=== PATIENT | female | born 1985 | race Caucasian/White ===

== ENCOUNTER 2023-05-02 23:02 | Inpatient (IN) | payer OTHER, SELFPAY ==
[2023-05-02 21:03] VITALS: BP 197/134
[2023-05-02] MEDS: TYLENOL 650 MG PO (21:12)
[2023-05-02 21:36] VITALS: BP 196/112
--- NOTE | 2023-05-02 21:50 | ED.GENMED ---
History of Present Illness
General
Chief Complaint: Fever
Source: patient
Exam Limitations: none
Time Seen by Provider: 05/02/23 21:35
Nursing documentation reviewed up to this point in time: agreed with
Travel History
Have you had any contact with someone who has COVID-19?: No
Do you have any symptoms of coronavirus? Fever > 100 degrees, chills, cough, shortness of breath, sore throat, loss of taste or smell, muscle aches, or headache?: No
History of Present Illness
History of Present Illness:
37-year-old female presents emergency department complaining of coughing, since yesterday, wheezing, worse shortness of breath and fever at home. She took Tylenol at home.
Past History
Past History
ED Past Medical History: NIDDM
ED Past Surgical History: Tonsilectomy
Social History
Tobacco: Non-smoker
Alcohol: None
Drug: None
Review of Systems
Review of Systems
Allergies reviewed?: Yes
All Other Systems: Not applicable
Constitutional: Reports fever
EENT: Reports no symptoms
Respiratory: Reports trouble breathing
Cardiac: Reports no symptoms
ABD/GI: Reports no symptoms; Denies abdominal pain
: Reports no symptoms
Musculoskeletal: Reports no symptoms
Skin: Reports no symptoms
Neurological: Reports no symptoms
Endocrine: Reports no symptoms
Hematologic/Lymphatic: Reports no symptoms
Psychiatric: Reports no symptoms
Phy Exam
Physical Exam
Physical Exam:
Physical Exam
General: Fever 102.2
Neck: supple. no meningeal signs. normal posterior pharynx
Heart: s1/s2 regular rate and rhythm, no murmur. equal radial
pulses.
HEENT: Pupils equal round reactive to light, EOMI
Lungs: Wheezing and rhonchi bilaterally
Abdomen: normal bowel sounds. not tender. no CVAT
Neuro: alert and oriented. no focal neurological deficits cranial nerves II through XII intact
Skin: no rash
Psychiatric: well kept. interactive and cooperative
Extremities: no edema. no calf tenderness. negative homans. good distal pulses
Course
Orders/Labs/Results
Orders:
Orders
05/02/23 Dinner
1800 calorie (15 carb) Diabetic
05/02/23 21:09
ECG [Electrocardiogram (*1)] Urgent
Reason for Study: Shortness of Breath
EKG- Treatment ONCE
05/02/23 21:12
Acetaminophen [Tylenol] 650 mg PO NOW STA
05/02/23 21:47
Cardiac Monitoring- Treatment ONCE
IV Insert/Care/Rem.- Treatment PRN
Ipratropium/Albuterol Sulfate [Duoneb] 3 ml INH R NOW STA
05/02/23 21:48
CR Chest - 2 Views Urgent
Comment:
Reason For Exam: fever, cough, short of breath
05/02/23 21:49
0.9% Sodium Chloride 1000 ml [Nss] 1,000 ml IV BOLUS
05/02/23 22:14
Azithromycin 500 mg/250 ml [Zithromax Infusion] 500 mg in 250 ml IV NOW
CefTRIAXone [Rocephin] 1,000 mg IV NOW STA
05/02/23 22:22
B-Hydroxybutyrate Urgent
Comment: ADD ON
COVID-19 Antigen Urgent
Source: Nasal Swab
Complete Blood Count/With Diff Urgent
Comprehensive Metabolic Panel Urgent
Lactic Acid Q4H
Comment: CANCEL 2nd LACTIC ACID IF 1st LACTIC ACID IS LESS THAN 2
Blood Culture Q30M
YOEL Source: Blood/Venous
Specimen Description:
Blood Culture Q30M
YOEL Source: Blood/Venous
Specimen Description:
Influenza A+B Rapid Molecular Urgent
YOEL Source: Nasal Swab
Specimen Description:
03/02/24 22:44
Admit/Transfer Patient As Directed
Co-Sign Provider:
Level of Care: Inpatient admission
Assign to:: Medical/Surgical
Physician / Group: Hospitalist
Diagnosis: Community acquired pneumonia
Reason for Hospitalization: Multifocal pneumonia
Expected length of stay greater than two midnights?: Yes
ELOS- Estimated Length of Stay in days: 2
I certify the patient meets the requirements for IP care: Yes
05/02/23 22:45
Code Status As Directed
Resuscitation Status: Full Code
05/02/23 22:51
Oseltamivir Phosphate [Tamiflu] 75 mg PO NOW STA
05/02/23 22:56
Insulin Regular, Human Pen [NovoLIN R Flexpen] 5 units SC NOW STA
05/02/23 23:44
0.9% Sodium Chloride 1000 ml [Nss] 1,000 ml IV 100 mls/hr
Dextrose 50%-Water [Dextrose 50% Syringe] 12.5 grams IV [id number] PRN
Glucagon [GlucaGen] 1 mg IM PRN PRN
Ipratropium/Albuterol Sulfate [Duoneb] 3 ml INH R Q4HPRN PRN
05/02/23 23:44
Respiratory Culture/Gram Stain Routine
YOEL Source: Sputum
Specimen Description:
Activity As Directed
Activity Level: Out of Bed-Early Mobility
Bedside Glucose Monitoring As Directed
Frequency: AC&HS
Bedside Glucose Monitoring As Directed
Frequency: AC&HS
Comment: Change to q6h if pt on TPN, tube feeding or not eating
Intake/ Output As Directed
Frequency: Per unit guidelines
Vital Signs As Directed
Frequency: Per unit guidelines
Weight As Directed
Frequency: Once
Comment: on admission
O2 Therapy [RESP] Routine
Nasal Cannula Liter Flow: 2 LPM
Titrate/Wean O2 to maintain O2 sat greater than (%): 93
Special Instructions: Wean as tolerated
Pulse Ox/spot Check [RESP] Routine
Quantity: 1
DX Deep Vein Thrombosis Video Routine
05/03/23 02:00
Lactic Acid Q4H
Comment: CANCEL 2nd LACTIC ACID IF 1st LACTIC ACID IS LESS THAN 2
05/03/23 06:00
Basic Metabolic Panel IN AM
Complete Blood Count/No Diff IN AM
Glycohemoglobin (HgbA1c) IN AM
05/03/23 07:30
Insulin Aspart Corrective Low [Novolog Flexpen-Low Resistance] See Protocol SC AC
Insulin Aspart Corrective Low [Novolog Flexpen-Low Resistance] See Protocol SC AC
05/03/23 08:00
Guaifenesin [Mucinex] 600 mg PO Q12
Losartan [Cozaar] 50 mg PO DAILY
METFORMIN HCl [Glucophage] 1,000 mg PO BID@0800,1700
Oseltamivir Phosphate [Tamiflu] 75 mg PO BID
05/03/23 18:00
Enoxaparin Sodium [Lovenox] 40 mg SC QPM
05/03/23 22:00
CefTRIAXone [Rocephin] 1,000 mg IV Q24H
05/03/23 23:00
Azithromycin 500 mg/250 ml [Zithromax Infusion] 500 mg in 250 ml IV Q24H
Abnormal Lab Results
05/02/23
22:22
RBC 4.03 L 10^6/uL
(4.20-5.40)
Hgb 11.8 L g/dL
(12.0-16.0)
Hct 33.6 L %
(37.0-47.0)
MPV 11.3 H fL
(7.4-10.4)
Absolute Neuts (auto) 8.4 H 10^3/uL
(1.4-6.5)
Absolute Lymphs (auto) 0.8 L 10^3/uL
(1.2-3.4)
Neutrophils % 87.0 H %
(42.2-75.2)
Lymphocytes % 7.8 L %
(20.5-51.1)
Sodium 126 L mmol/L
(135-145)
Carbon Dioxide 14 L* mmol/L
(22-30)
BUN 31 H mg/dl
(7-17)
Creatinine 1.5 H mg/dL
(0.6-1.0)
Glucose 303 H mg/dl
(70-99)
Calcium 7.9 L mg/dl
(8.4-10.2)
Alkaline Phosphatase 127 H U/L
(38-126)
Total Protein 5.2 L g/dl
(6.3-8.2)
Albumin 2.7 L g/dl
(3.5-5.0)
B-Hydroxybutyrate 3.43 H mmol/L
(0.02-0.27)
05/02/23 22:22
05/02/23 22:22
Vital Signs
Initial and Last Documented VS:
Initial Vital Signs
Temp Pulse Resp BP Pulse Ox
102.2 F H 129 20 197/134 83
05/02/23 21:03 05/02/23 21:03 05/02/23 21:03 05/02/23 21:03 05/02/23 21:03
Last Documented Vital Signs
Temp Pulse Resp BP Pulse Ox
102.2 F H 117 21 134/83 94
05/02/23 21:03 05/02/23 23:15 05/02/23 22:30 05/02/23 23:00 05/02/23 23:15
MDM/Problems Addressed
Differential Diagnosis Includes:
Pneumonia, influenza, COVID
MDM/Problems Addressed:
37-year-old female with bilateral pneumonia. IV Rocephin and azithromycin ordered. Admit to hospitalist.
Chronic conditions affecting care: DM
Acute Exacerbation and/or Progression of Chronic Illness: DM
*Radiology
Radiology exam reviewed: preliminary read by ED provider (Chest x-ray shows bilateral pneumonia)
*Pulse Oximetry
Patient hypoxic: yes
*EKG
Interpreted by ED Provider?: Yes
EKG Intrepretation Date: 05/02/23
EKG Intrepretation Time: 21:13
Interpretation: abnormal
Comparison EKG: no comparison EKG present
Heart Rate: 124
Rate: tachycardiac
Rhythm: sinus tachycardia
[place]: normal axis
Interval: normal interval
QRS Pattern: normal QRS
Ischemia: non-specific ST changes
*Surface Hydrologist Interpretation
Rate: tachycardiac
Interpretation: abnormal
Heart Rate: 115
Rhythm: sinus tachycardia
*Critical Care Note
Total Time (30-74mins, 75-104mins- exclusive of procedures): 30
comment:
Critical care statement: A total of 30 minutes of critical care time was provided for this patient. This includes management of unstable vital signs, evaluation of the patient at bedside, reviewing the patient's pertinent medical records, discussion
with consultants, review of old EKGs and review of pertinent medical records. This time with separate from time utilized to perform the aforementioned documented procedures
Patient Management
Social determinants of health affecting care: Living situation and Strong social support
Discussion with other providers: Hospitalist
Escalation/DeEscalation of care consider admission/obs:
Admit indicated
ED Attending Note
-
Portions of this chart may have been created with voice recognition software.� Occasional wrong word or��sound alike� substitutions may have occurred due to the inherent limitations of voice recognition software.
Discharge Plan
Departure
Patient Disposition: Admit
Date of Disposition: 05/02/23
Time of Disposition: 22:36
Admit to: IMU
Presentation/result/management discussed w/ accepting MD/DO: Hospitalist
Patient with high blood pressure during this ER visit?: Yes
Condition: Fair
Discharge Problem:
Bilateral pneumonia, Hypoxia, Acute kidney failure, Influenza A
Interventions
Interventions:
*Risk Screen - Suicide Last Done: 05/02/23 21:03
*General Assessment Last Done: 05/02/23 21:05
*Neglect/Abuse Screening Last Done: 05/02/23 21:03
ED- Fall Risk Assessment Last Done: 05/02/23 22:47
*ED COVID-19 Vaccine History Last Done: 05/02/23 22:49
*Nursing Disposition Last Done: 05/02/23 23:35
ED- Neurological Assessment Last Done: 05/02/23 22:47
ED-Skin Assessment Last Done: 05/02/23 22:47
Discharge Date and Time
Discharge Date/Time: 05/02/23 23:36
[2023-05-02] MEDS: ROCEPHIN 1000 MG IV (22:27)
[2023-05-02] MEDS: ZITHROMAX INFUSION 250 IV (22:27)
[2023-05-02] MEDS: NSS 1000 IV (22:27)
[2023-05-02] MEDS: DUONEB 3 ML INH (22:28)
[2023-05-02 22:32] LABS: % Basophils 0.9 % (0-2); % Immature Granulocytes 0.4 % (0-0.5); % Lymphocytes 7.8 % (20.5-51.1); % Monocytes 3.9 % (1.7-9.3); Absolute Basophils 0.1 10^3/uL (0-0.2); Absolute Lymphocytes 0.8 10^3/uL (1.2-3.4); Absolute Monocytes 0.4 10^3/uL (0.1-0.6); Absolute Neutrophils 8.4 10^3/uL (1.4-6.5); Hematocrit 33.6 % (37.0-47.0); Hemoglobin 11.8 g/dL (12.0-16.0); Mean Corp Hgb Conc. 35.1 g/dL (33.0-37.0); Mean Corpuscular Hgb 29.3 pg (27.0-31.0); Mean Corpuscular Volume 83.4 fL (81.0-99.0); Mean Platelet Volume 11.3 fL (7.4-10.4); Nucleated Red Blood Cells % 0 %; Platelet Count 193 10^3/uL (130-400); Red Blood Cell Count 4.03 10^6/uL (4.20-5.40); Red Cell Dist. Width 14.1 % (11.5-14.5); White Blood Cell Count 9.7 10^3/uL (4.8-10.8)
[2023-05-02 22:36] VITALS: BP 166/93
--- NOTE | 2023-05-02 22:44 | HPS.HSE ---
Family Physician
-
Family Physician:
Chief Complaint
-
Cough and shortness of breath
History of Present Illness
This is a 37-year-old female with past medical history of diabetes and hypertension who presents to the emergency department secondary after developing cough and worsening shortness of breath.
She reports having a productive cough 1 day ago without any other significant symptoms. However overnight until this morning she developed fever chills shortness of breath and significant lethargy. She had dyspnea on exertion. Cough is productive
of sputum. She had otherwise been well prior to today's sweating episode. She denies having any sick contacts except for a small relative child with otitis. Patient denies any recent travels.
In terms of risk factors, she denies any recent antibiotic use. She denies any recent hospitalizations. She has not been on prednisone or other immunosuppressants. She denies history of prior lung disease such as asthma, COPD or interstitial lung
disease. No personal or family history of immunodeficiency. She denies any prior treatments hospitalization for pneumonia.
In the ED patient was febrile to 102.2 oxygen was 91% on room air, she was hypertensive and tachycardic with tachypnea to mid 20s. ECG shows sinus tachycardia at [address] or T wave changes. Chest x-ray shows bilateral consolidations. COVID
testing was negative. She was positive for influenza A. Chemistries notable for a sodium of 126, bicarb of 14, creatinine of 1.5 and a blood glucose of 303. There is no anion gap. Lactic acid was negative.
Medical History
Past Medical History
Past Medical History: Reports HTN and NIDDM
Past Surgical History: Reports None
Social History
Tobacco: Non-smoker
Alcohol: None
Drug: None
Personal:
Living: With Family
Employment: Employed
Family History
Family History: Cancer (mother w/ cancer of unknown origin, father, smoker with lung Ca)
Allergies / Home Medications
Allergies reflects when Allergies were last updated in [facility].
Home Medications with original date entered in [facility]
Allergy/Medication List:
Allergies
Allergy/AdvReac Type Severity Reaction Status Date / Time
No Known Allergies Allergy Verified 05/02/23 21:02
Home Medications
losartan 50 mg tablet 50 mg PO DAILY #30 tabs 03/12/23
metformin 1,000 mg tablet 1,000 mg PO BID #60 tabs 03/12/23
Review of Systems
-
History Source: Patient
Constitutional: Reports Fever and Fatigue
EENT: Reports No Symptoms
Respiratory: Reports Cough and Trouble Breathing
Cardiac: Reports No Symptoms
Abdomen/GI: Reports No Symptoms
: Reports No Symptoms
Musculoskeletal: Reports No Symptoms
Skin: Reports No Symptoms
Neurological: Reports No Symptoms
Endocrine: Reports No Symptoms
Hematologic/Lymphatic: Reports No Symptoms
Psych: Reports No Symptoms
Physical Exam
Vital Signs
Vital Signs
Temp Pulse Resp BP Pulse Ox
102.2 F H 129 20 197/134 91
05/02/23 21:03 05/02/23 21:03 05/02/23 21:03 05/02/23 21:03 05/02/23 21:05
Physical Exam
General: Well Developed, Well Nourished and Respiratory Distress
HEENT: NormoCephalic, Anicteric, Moist mucous membranes, PERRLA, [place] Conjunctivae and Oxygen
Respiratory: Clear
Cardiac: S1/S2 and Tachycardia
Breast: Deferred by me
GI: Soft, Non Tender, Non Distended and Normal Bowel Sounds
Rectal: Deferred by Provider
Genito-urinary: Deferred by me
Musculoskeletal: No Clubbing, No Cyanosis and No Edema
Skin: Warm
Neuro: AO x 3
Hematologic/Lymphatic: No Lymphadenopathy
Psych: Calm
Laboratory Results
-
Laboratory Results
Lactic Acid 1.0 mmol/L (0.7-2.0) 05/02/23 22:22
Data Reviewed
-
Diagnostic Radiology: Image Personally Visualized and interpreted and Report Reviewed by me
Medical Tests (Nuc Med, Echo, EKG etc): Image Personally Visualized and interpreted
Lab Data: Labs Reviewed by me
Old Records: Reviewed
Impression/Plan
-
IMPRESSION:
37 y.o with multifocal pneumonia and influenza A complicated by hypoxia.
PLAN:
1. Influenza A: Influenza Pneumonia with possible super-imposed bacterial pneumonia. Acute onset starting one day ago, < 48 hours since onset of symptoms. Significant respiratory distress with mild hypoxia and moderate tachypnea.
- admit to f for now
- tamiflu stat and continue 75mg po bid
- abx as below
2. Multifocal pneumonia: Likely secondary to Influenza however cannot rule out co-infection.
- ceftriaxone and azithromycin for now
- monitor with procalcitonin
- supportive care with supplemental O2, antitussives, Nebs
3. Hyperglycemia - Diabetes, elevated blood glucose. No significant anion gap suggestive of DKA
- IV fluids x 1 L
- insulin regular 5 units x 1
- q 4 hours blood glucose and aspart q4 hours sliding scale
- check a1c in am
- hold metformin
- continue NS at 150ml/hr
- npo till am
4. Hyponatremia - Suspect mild SIADH given acute onset of symptoms.
- Normal saline, monitor sodium with bid labs for now
- check urine osmolality now
5. Acidosis - Normal AG. Normal lactic acid. Mild bHB elevation. pH 7.31. Hyperchloremic acidosis w/o significant AG therefore no DKA requiring insulin gtt
- 5units regular insulin bolus
- iv fluids with 150 ml/hr
- q4 hr blood glucose and aspart sliding scale
DVT PPX with lovenox
Full Code
[2023-05-02 22:46] LABS: COVID-19 Antigen Negative (Negative)
[2023-05-02 22:50] LABS: ALT (SGPT) 15 U/L (0-35); AST (SGOT) 21 U/L (14-36); Albumin 2.7 g/dl (3.5-5.0); Alkaline Phosphatase 127 U/L (38-126); Blood Urea Nitrogen 31 mg/dl (7-17); Calcium 7.9 mg/dl (8.4-10.2); Carbon Dioxide 14 mmol/L (22-30); Chloride 103 mmol/L (98-107); Glucose 303 mg/dl (70-99); Potassium 3.8 mmol/L (3.5-5.1); Sodium 126 mmol/L (135-145); Total Bilirubin 0.6 mg/dl (0.2-1.3); Total Protein 5.2 g/dl (6.3-8.2); eGFR 45.18
[2023-05-02 23:00] VITALS: BP 134/83
[2023-05-02] MEDS: TAMIFLU 75 MG PO (23:02)
[2023-05-02 23:34] LABS: B-Hydroxybutyrate 3.43 mmol/L (0.02-0.27)
[2023-05-02 23:41] LABS: Venous Blood Gas B.E. -12.1 mmol/L (-4 to +4); Venous Blood Gas HCO3 12.6 mmol/L (22-27); Venous Blood Gas pCO2 25 mmHg (35-48); Venous Blood Gas pH 7.31 (7.32-7.43); Venous Blood Gas pO2 183 mmHg (30-50)
[2023-05-02 23:55] VITALS: BP 133/82; BMI 32.5
[2023-05-03] LABS: Glucose - Point of Care 325 mg/dl (70-99)
[2023-05-03] MEDS: NSS 1000 IV ×3 (00:51→16:40)
--- NOTE | 2023-05-03 01:00 | PTCARENOTE ---
Received patient from ED. Patient AAOx3, lungs coarse with rhonchi throughout (R>L) , DAVIS, orthopneic. Heart rate regular, no edema, positive pulses. Patient denies pain, does have minor 'cramps'. VSS. IVFs infusing. Patient verbalized an
understanding to ring for transfers. 4 rails up per patient request. Call crews in reach.
[2023-05-03] MEDS: NOVOLIN R 0.0500000000000000028 UNITS SC (01:01)
[2023-05-03 01:19] LABS: Blood Urea Nitrogen 33 mg/dl (7-17); Calcium 7.3 mg/dl (8.4-10.2); Carbon Dioxide 12 mmol/L (22-30); Chloride 108 mmol/L (98-107); Estimated Creatinine Clearance 38 ml/min; Glucose 317 mg/dl (70-99); Potassium 3.6 mmol/L (3.5-5.1); Sodium 128 mmol/L (135-145); eGFR 45.18
--- NOTE | 2023-05-03 01:42 | PTCARENOTE ---
Advised covering provider CO2 = 12.
[2023-05-03 01:50] VITALS: BP 133/82
[2023-05-03 04:14] LABS: Glucose - Point of Care 232 mg/dl (70-99)
--- NOTE | 2023-05-03 04:48 | PTCARENOTE ---
Advised covering provider 4am accu-check was 232.
[2023-05-03 05:29] LABS: Hematocrit 29.7 % (37.0-47.0); Hemoglobin 10.3 g/dL (12.0-16.0); Mean Corp Hgb Conc. 34.7 g/dL (33.0-37.0); Mean Corpuscular Volume 83.7 fL (81.0-99.0); Mean Platelet Volume 11.2 fL (7.4-10.4); Platelet Count 167 10^3/uL (130-400); Red Blood Cell Count 3.55 10^6/uL (4.20-5.40); Red Cell Dist. Width 14.1 % (11.5-14.5)
[2023-05-03 05:54] LABS: Blood Urea Nitrogen 33 mg/dl (7-17); Calcium 7.3 mg/dl (8.4-10.2); Carbon Dioxide 15 mmol/L (22-30); Chloride 109 mmol/L (98-107); Estimated Creatinine Clearance 38 ml/min; Glucose 244 mg/dl (70-99); Potassium 3.6 mmol/L (3.5-5.1); Sodium 129 mmol/L (135-145); eGFR 45.18
[2023-05-03 07:25] VITALS: BP 148/84
[2023-05-03 08:22] LABS: Glucose - Point of Care 246 mg/dl (70-99)
[2023-05-03] MEDS: NOVOLOG FLEXPEN-MODERATE RESISTANCE 3 UNITS SC (08:36)
--- NOTE | 2023-05-03 08:36 | W.PN.HOSP.TC ---
Today's Communication/Plan
-
See bold
Assessment / Plan
Assessment / Plan
37 y.o with multifocal pneumonia and influenza A complicated by hypoxia.�
PLAN:
Acute hypoxic respiratory insufficiency
-Due to influenza A infection and pneumonia
-Currently requiring 4-5 L of oxygen, wean as tolerated
-She does not wear oxygen at home
Sepsis, present upon admission
Influenza A infection
Multifocal pneumonia
-Procalcitonin elevated at 2.35
-Continue Rocephin/azithromycin day 2, Tamiflu day 2, bronchodilators
-Add incentive spirometry/Acapella valve
-Trend fever and white count
Acute kidney injury
-Creatinine 1.5, was 1.5 upon admission, baseline 1.1
-Hold metformin/losartan
-Secondary to sepsis, continue IV fluids, trend
Uncontrolled Diabetes with hyperglycemia
-No evidence of DKA, patient has non-anion gap metabolic acidosis
-Okay to start diabetic diet
-Hemoglobin A1c 10.4, consult diabetes nurse practitioner
-Start Lantus 10 units at bedtime, NovoLog 3 units AC 3 times daily, continue sliding scale insulin
-Hold metformin due to JOHN
Essential hypertension
-Hold losartan due to JOHN
-Start amlodipine 5 mg twice daily
Hyponatremia - Suspect mild SIADH given acute onset of symptoms.�
-Sodium improved to 129 today, was 126 upon admission
-Continue to trend
Acute anemia superimposed on chronic anemia
-Suspect acute anemia from sepsis vs dilutional from IVFs
-Hemoglobin 10.3 today, was 11.8 upon admission, baseline 11.4
-Monitor
Left upper extremity edema
-Suspect due to infiltrated IV
-Dopplers negative for DVT
Hyperchloremic non-anion gap metabolic acidosis
-Monitor
Hypocalcemia
-Corrected calcium is 7.9 from 7.3
-Check vitamin D, start calcium supplements
DVT ppx - SCDs
Full Code
Total time spent to see the patient on the floor, examine the patient, review data and lab results, discuss treatment plan with patient, nursing staff around 60 minutes.
Physical Exam
General: Appears to not feel well, no acute distress
HEENT: Normocephalic, Atraumatic, EOMI, MMM
Respiratory: Diminished breath sounds at the bases
Cardiac: Normal S1/S2, tachycardic rate rate and Rhythm
GI: Soft, Nontender, Nondistended, Normal Bowel Sounds
Extremities: No Clubbing, Cyanosis, or Edema
Neuro: Nonfocal/Grossly Intact
Anticipated Discharge: > 48 hours
Subjective/Interval History
-
Date of Service: May 03, 2023
Patient reports that her shortness of breath and wheezing are better. No nausea, no vomiting. No abdominal pain. Fever resolved.
Objective Data
-
Labs:
Laboratory Results
05/02/23 05/03/23 05/03/23
22:22 00:45 05:11
WBC 9.7 8.0
Hgb 11.8 L 10.3 L
Hct 33.6 L 29.7 L
Plt Count 193 167
Sodium 126 L 128 L 129 L
Potassium 3.8 3.6 3.6
Chloride 103 108 H 109 H
Carbon Dioxide 14 L* 12 L* 15 L
BUN 31 H 33 H 33 H
Creatinine 1.5 H 1.5 H 1.5 H
Glucose 303 H 317 H 244 H
Calcium 7.9 L 7.3 L 7.3 L
Total Bilirubin 0.6
AST 21
ALT 15
Alkaline Phosphatase 127 H
05/03/23 05/03/23 05/03/23
06:00 07:36 12:00
WBC
Hgb
Hct
Plt Count
Sodium Cancelled Pending Pending
Potassium Cancelled Pending Pending
Chloride Cancelled Pending Pending
Carbon Dioxide Cancelled Pending Pending
BUN Cancelled Pending Pending
Creatinine Cancelled Pending Pending
Glucose Cancelled Pending Pending
Calcium Cancelled Pending Pending
Total Bilirubin
AST
ALT
Alkaline Phosphatase
05/03/23 05/03/23
16:00 20:00
WBC
Hgb
Hct
Plt Count
Sodium Pending Pending
Potassium Pending Pending
Chloride Pending Pending
Carbon Dioxide Pending Pending
BUN Pending Pending
Creatinine Pending Pending
Glucose Pending Pending
Calcium Pending Pending
Total Bilirubin
AST
ALT
Alkaline Phosphatase
Vital Signs:
Vital Signs
Temp Pulse Resp BP Pulse Ox
99.6 F 115 22 133/82 93
05/02/23 23:55 05/02/23 23:55 05/02/23 23:55 05/02/23 23:55 05/02/23 23:55
I&O
05/02/23 05/03/23 05/04/23
06:59 06:59 06:59
Intake Total 900 / 900
Balance 900 / 900
[2023-05-03] MEDS: MUCINEX 600 MG PO ×2 (08:37→21:22)
[2023-05-03] MEDS: COZAAR 50 MG PO (08:37)
[2023-05-03] MEDS: TAMIFLU 30 MG PO ×2 (08:39→21:22)
[2023-05-03 08:55] LABS: Blood Urea Nitrogen 34 mg/dl (7-17); Calcium 7.3 mg/dl (8.4-10.2); Carbon Dioxide 12 mmol/L (22-30); Chloride 110 mmol/L (98-107); Estimated Creatinine Clearance 38 ml/min; Glucose 233 mg/dl (70-99); Potassium 3.8 mmol/L (3.5-5.1); Sodium 128 mmol/L (135-145); eGFR 45.18
--- NOTE | 2023-05-03 08:59 | PTCARENOTE ---
Critical Lab carbon dioxide 12. Dr. Toney notified via tiger text at 0819. Per Dr. Toney ABG's ordered.
[2023-05-03 09:18] LABS: B.E. -7.9 mmol/L; HCO3 16.4 mmol/L (21-28); O2 Saturation % 97.4 % (94-98); PCO2 29 mmHg (32-35); PO2 83 mmHg (83-108); pH 7.36 (7.35-7.45)
[2023-05-03 09:29] LABS: Glycohemoglobin (HgbA1c) 10.4 % (4.0-5.6)
[2023-05-03 10:09] LABS: Procalcitonin 2.35 ng/ml (0.0-0.25)
--- NOTE | 2023-05-03 10:42 | PTCARENOTE ---
critical lab Procalcitonin 2.35 H received from lab. Forwarded to Dr. Toney [id number].
[2023-05-03 11:55] LABS: Glucose - Point of Care 191 mg/dl (70-99)
[2023-05-03] MEDS: NOVOLOG FLEXPEN-MODERATE RESISTANCE 1 UNITS SC (11:56)
[2023-05-03] MEDS: NOVOLOG FLEXPEN 3 UNITS SC ×2 (11:59→17:15)
--- NOTE | 2023-05-03 15:00 | CM ---
real estate development manager reviewed patient's chart and spoke with patient by phone, patient is currently on isolation. Per patient she does not have insurance, call placed to admissions to contact [facility] for assessment tomorrow. Patient reports that she is working
but missed out on the cut off to enroll and next enrollment period is December per patient. Patient lives alone is independent with adl's and ambulation, no dme, patient is currently requiring 4-5 liters of oxygen, patient did not require oxygen
prior to admission. Patient uses [facility] on as her pharmacy.
Plan; To follow for discharge planning needs.
[2023-05-03 15:10] VITALS: BP 120/92
[2023-05-03] MEDS: OSCAL 500 + D 500 MG PO ×2 (16:39→22:02)
[2023-05-03 17:02] LABS: Glucose - Point of Care 260 mg/dl (70-99)
[2023-05-03] MEDS: NOVOLOG FLEXPEN-MODERATE RESISTANCE 5 UNITS SC (17:14)
[2023-05-03] MEDS: DUONEB 3 ML INH (19:28)
[2023-05-03 21:22] LABS: Glucose - Point of Care 185 mg/dl (70-99)
[2023-05-03] MEDS: NORVASC 5 MG PO (21:22)
[2023-05-03] MEDS: LANTUS 0.100000000000000006 UNITS SC (22:02)
[2023-05-03] MEDS: ROCEPHIN 1000 MG IV (22:03)
[2023-05-03] MEDS: STERILE WATER FOR INJECTION 10 ML IV (22:03)
[2023-05-03 23:21] VITALS: BP 150/91
[2023-05-03] MEDS: ZITHROMAX INFUSION 250 IV (23:29)
[2023-05-03 23:59] LABS: Glucose - Point of Care 180 mg/dl (70-99)
[2023-05-04 04:23] LABS: Glucose - Point of Care 152 mg/dl (70-99)
[2023-05-04 04:53] LABS: Hematocrit 31.4 % (37.0-47.0); Hemoglobin 10.9 g/dL (12.0-16.0); Mean Corp Hgb Conc. 34.7 g/dL (33.0-37.0); Mean Corpuscular Hgb 29.5 pg (27.0-31.0); Mean Corpuscular Volume 85.1 fL (81.0-99.0); Mean Platelet Volume 11.6 fL (7.4-10.4); Platelet Count 193 10^3/uL (130-400); Red Blood Cell Count 3.69 10^6/uL (4.20-5.40); Red Cell Dist. Width 14.4 % (11.5-14.5); White Blood Cell Count 9.9 10^3/uL (4.8-10.8)
[2023-05-04] MEDS: NSS 1000 IV ×2 (05:07→20:50)
[2023-05-04 05:21] LABS: Blood Urea Nitrogen 42 mg/dl (7-17); Calcium 8.1 mg/dl (8.4-10.2); Carbon Dioxide 15 mmol/L (22-30); Chloride 107 mmol/L (98-107); Estimated Creatinine Clearance 36 ml/min; Glucose 172 mg/dl (70-99); Potassium 3.9 mmol/L (3.5-5.1); Sodium 132 mmol/L (135-145); eGFR 41.81
[2023-05-04 05:37] LABS: Vitamin D, 25-OH*** < 12.8 ng/mL (30-80)
[2023-05-04 07:00] VITALS: BP 154/93
[2023-05-04 07:33] LABS: Glucose - Point of Care 160 mg/dl (70-99)
--- NOTE | 2023-05-04 07:43 | W.PN.HOSP.TC ---
Today's Communication/Plan
-
see A/P
Assessment / Plan
Assessment / Plan
37 y.o with multifocal pneumonia and influenza A complicated by hypoxia.�
A/P:
# Acute hypoxic respiratory insufficiency, due to influenza A infection and CAP
Currently requiring 4-5 L of oxygen, wean as tolerated
She does not wear oxygen at home
# Sepsis, present upon admission, due to Influenza A infection and Multifocal pneumonia
Procalcitonin elevated at 2.35
Check MRSA screen
Continue Rocephin/azithromycin , add empiric vancomycin
Cont Tamiflu
Cont bronchodilators, incentive spirometry/Acapella valve
fever has much resolved and white count WNL
# Acute kidney injury, Secondary to sepsis
Creatinine 1.6, was 1.5 upon admission, baseline 1.1
Hold DIRECTOR IMMUNOLOGY metformin/losartan
continue IV fluids, trend SCr
# Uncontrolled Diabetes with hyperglycemia
No evidence of DKA, patient has non-anion gap metabolic acidosis
Cont diabetic diet
Hemoglobin A1c 10.4, consult diabetes nurse practitioner
Started Lantus 10 units at bedtime, NovoLog 3 units AC 3 times daily, continue sliding scale insulin
Hold metformin due to JOHN
# Essential hypertension
Hold losartan due to JOHN
Started amlodipine 5 mg twice daily
# Hyponatremia - Suspect mild SIADH given acute onset of symptoms.�
Sodium improved to 132 today, was 126 upon admission
Continue to trend
# Acute anemia superimposed on chronic anemia
Suspect acute anemia from sepsis vs dilutional from IVFs
Hemoglobin 10.9 today, was 11.8 upon admission, baseline 11.4
Monitor
# Left upper extremity edema
Suspect due to infiltrated IV
Dopplers negative for DVT
# Hyperchloremic non-anion gap metabolic acidosis
Hyperchloremia has improved
# Hypocalcemia
# Low vitamin D level
started calcium carbonate supplement, cont
Hypocalcemia has improved
25 OH vitamin D level low, started ergocalciferol 80 000 units weekly for 8 weeks then 1000 units daily thereafter
DVT ppx - SCDs
Full Code
DW RN
Anticipated Discharge: > 48 hours
Subjective/Interval History
-
Date of Service: May 04, 2023
Objective Data
-
Labs:
Laboratory Results
05/04/23
04:41
WBC 9.9
Hgb 10.9 L
Hct 31.4 L
Plt Count 193
Sodium 132 L
Potassium 3.9
Chloride 107
Carbon Dioxide 15 L
BUN 42 H
Creatinine 1.6 H
Glucose 172 H
Calcium 8.1 L
Vital Signs:
Vital Signs
Temp Pulse Resp BP Pulse Ox
37.6 C 113 20 150/91 95
05/03/23 23:21 05/03/23 23:21 05/03/23 23:21 05/03/23 23:21 05/04/23 03:54
I&O
05/03/23 05/04/23 05/05/23
06:59 06:59 06:59
Intake Total 900 / 900 2099
Balance 900 / 900 2099
Review of Systems
-
Respiratory: Reports Trouble Breathing
Physical Exam
-
General: Well Developed, Respiratory Distress and Conversant (speak in full sentences)
HEENT: Normocephalic, Atraumatic, Nose Appears Normal, Ears Appear Normal and Oxygen (4L NC)
Respiratory: Crackles and Non Labored Respirations; Negative Wheezes or Accessory Resp Muscle Use
Cardiac: Regular Rhythm and S1/S2
GI: Soft and Nontender
Skin: Warm and Dry
Neuro: Awake, Alert, Oriented and AO x 3
Psych: Calm and Intact Judgement/Insight
Data Reviewed
-
Diagnostic Radiology: Image personally visualized and interpreted and Report Reviewed by me
Labs: Labs Reviewed by me
--- NOTE | 2023-05-04 07:51 | PN.DE.MGMTRT ---
Insulin Management
- -
05/04/2023: Diabetes Management Consult
37 year old female with multifocal pneumonia and influenza A complicated by hypoxia.�
PMH includes: HTN, T2DM, A1C 10.4%, was taking Metformin 1000mg BID, Cr 1.6,eGFR 41.81, metformin on hold.
Pt was started on Lantus 10 units @ HS and NovoLog 3 units AC.
Glucose has improved since admission, FBG 172 this AM, premeal range 191-260 yesterday, Currently requiring 1-5 units of additional corrective insulin with meals. Pt reports that she had been monitoring her blood sugars and taking insulin in the
past but it became cost prohibitive and she stopped taking insulin and checking blood sugars.
She reports that she has no insurance and can not afford insulin. She gets her routine care through the [facility] which she recently joined.
Says the only medication she can afford is Metformin. Explained to pt that her A1C is not at goal and will require insulin for optimal blood glucose control. Discussed [employer] brand Novolin that is $62.46 for 6 pens and [employer] ReliOn glucose
monitor and she was amenable to that.
Will start 70/30, 15 units BID, 1st dose this evening. MFM remains on hold given Cr 1.6, eGFR 41.81
Pt declined monitor and insulin instructions, stating that she knows how to check her blood sugar and is comfortable administering insulin at home.
Diabetes History
- -
Type of Diabetes: 2 requiring insulin
Pre-Admission Diabetes Regimen
05/03/23 05/03/23 05/03/23
07:36 12:00 16:00
Creatinine 1.5 H Cancelled Cancelled
05/03/23 05/04/23
20:00 04:41
Creatinine Cancelled 1.6 H
Lab Results
Hemoglobin A1c 10.4 % (4.0-5.6) H 05/03/23 05:11
Insulin Pump Settings
IP Diabetes Regimen
05/03/23 05/03/2324
07:36 08:21 11:53
Glucose 233 H
POC Glucose 246 H 191 H
05/03/23 05/03/23 05/03/23
12:00 16:00 17:01
Glucose Cancelled Cancelled
POC Glucose 260 H
05/03/23 05/03/23 05/03/23
20:00 21:21 23:56
Glucose Cancelled
POC Glucose 185 H 180 H
05/04/23 05/04/23 05/04/23
04:21 04:41 07:30
Glucose 172 H
POC Glucose 152 H 160 H
Meal type: Dinner
Meal type: Breakfast
Amount consumed: 85%
Amount consumed: 100%
Patient Education
[2023-05-04] MEDS: TYLENOL 650 MG PO ×2 (08:17→16:15)
[2023-05-04] MEDS: OSCAL 500 + D 500 MG PO ×3 (08:18→22:13)
[2023-05-04] MEDS: TAMIFLU 30 MG PO ×2 (08:18→20:54)
[2023-05-04] MEDS: MUCINEX 600 MG PO ×2 (08:18→20:51)
[2023-05-04] MEDS: NOVOLOG FLEXPEN-MODERATE RESISTANCE 1 UNITS SC ×2 (08:18→17:32)
[2023-05-04] MEDS: NORVASC 5 MG PO ×2 (08:18→20:51)
[2023-05-04] MEDS: NOVOLOG FLEXPEN SC (08:19)
--- NOTE | 2023-05-04 09:50 | PHA.VAN.IN ---
Assessment
- Assessment
Renal Function: Appears elevated from baseline
Maximum Temperature: 102.2
Minimum Temperature: 98.9
Concomitant Antimicrobials: Azithromycin, Ceftriaxone
Plan
- Plan
Initial / Loading Dose: 1500mg on 05/03
Maintenance Regimen: Dose by level
Monitoring: Random on 05/04 @0600
Pharmacokinetics Vancomycin I
- -
Patient Age: 37
Patient Sex: Female
Vancomycin Day #: 1
Indication: Pulmonary/Respiratory
Requesting Provider: Jai Doty
Pertinent Antimicrobial Allergies:
NKDA
Height / Weight:
Height 4 ft 8 in
Actual Weight 65.771 kg
Pertinent Past Medical History: DM
- Vital Signs / Lab Results
Temp Pulse Resp BP Pulse Ox
100.3 F 108 18 154/93 97
05/04/23 07:00 05/04/23 07:00 05/04/23 07:00 05/04/23 07:00 05/04/23 07:00
Lab Results - Hematology
05/02/23 05/03/23 05/04/23
22:22 05:11 04:41
WBC 9.7 8.0 9.9
Lab Results - Chemistry
05/02/23 05/03/23 05/03/23
22:22 00:45 05:11
BUN 31 H 33 H 33 H
Creatinine 1.5 H 1.5 H 1.5 H
Estimated Creat Clear 38 38
Albumin 2.7 L
05/03/23 05/03/23 05/03/23
06:00 07:36 12:00
BUN Cancelled 34 H Cancelled
Creatinine Cancelled 1.5 H Cancelled
Estimated Creat Clear Cancelled 38 Cancelled
Albumin
05/03/23 05/03/23 05/04/23
16:00 20:00 04:41
BUN Cancelled Cancelled 42 H
Creatinine Cancelled Cancelled 1.6 H
Estimated Creat Clear Cancelled Cancelled 36
Albumin
05/02/23 05/03/23
22:22 02:00
Lactic Acid 1.0 Cancelled
Microbiology Results
05/02/23 22:22 Blood Culture - Preliminary
Blood/Venous No Growth in 24 hours- Final report to follow
05/02/23 22:22 Blood Culture - Preliminary
Blood/Venous No Growth in 24 hours- Final report to follow
05/02/23 22:22 Influenza Types A & B (JORG[place]O) - Final
Nasal Swab Influenza A Positive, NAAT
[2023-05-04] MEDS: DRISDOL (VITAMIN D2) 50000 UNITS PO (10:09)
[2023-05-04] MEDS: VANCOCIN 300 MG IV (10:10)
[2023-05-04] MEDS: VANCOCIN 300 ML IV (10:10)
[2023-05-04 12:51] LABS: Glucose - Point of Care 252 mg/dl (70-99)
[2023-05-04] MEDS: NOVOLOG FLEXPEN 6 UNITS SC (13:46)
[2023-05-04] MEDS: NOVOLOG FLEXPEN-MODERATE RESISTANCE 5 UNITS SC (13:46)
[2023-05-04 15:00] VITALS: BP 157/95
--- NOTE | 2023-05-04 15:11 | CM ---
Discharge plan of care TBD. Was independent. Now with O2 @ 3L. Follow for need for O2. NO INSURANCE.
[2023-05-04 16:33] LABS: Glucose - Point of Care 174 mg/dl (70-99)
[2023-05-04] MEDS: NOVOLOG MIX 70/30 FLEXPEN 15 UNITS SC (18:10)
[2023-05-04] MEDS: ROCEPHIN 1000 MG IV (22:13)
[2023-05-04] MEDS: STERILE WATER FOR INJECTION 10 ML IV (22:14)
[2023-05-04 22:16] LABS: Glucose - Point of Care 117 mg/dl (70-99)
[2023-05-04 23:26] VITALS: BP 156/87
[2023-05-04] MEDS: ZITHROMAX INFUSION 250 IV (23:36)
[2023-05-05] MEDS: MELATONIN 5 MG PO (01:18)
--- NOTE | 2023-05-05 02:29 | PTCARENOTE ---
Pt stated that she felt like she was having a panic attack. This RN provided emotional support and deep breathing exercises. House COMPUTER FORENSICS INVESTIGATOR notified. Orders obtained for melatonin. (See MAR)
[2023-05-05 06:23] LABS: Hematocrit 29.8 % (37.0-47.0); Hemoglobin 10.4 g/dL (12.0-16.0); Mean Corp Hgb Conc. 34.9 g/dL (33.0-37.0); Mean Corpuscular Hgb 29.4 pg (27.0-31.0); Mean Corpuscular Volume 84.2 fL (81.0-99.0); Mean Platelet Volume 11.8 fL (7.4-10.4); Platelet Count 222 10^3/uL (130-400); Red Blood Cell Count 3.54 10^6/uL (4.20-5.40); Red Cell Dist. Width 14.5 % (11.5-14.5); White Blood Cell Count 9.5 10^3/uL (4.8-10.8)
[2023-05-05 06:29] LABS: Vancomycin Random 18.2 ug/ml
[2023-05-05 06:45] LABS: Blood Urea Nitrogen 39 mg/dl (7-17); Calcium 8.3 mg/dl (8.4-10.2); Carbon Dioxide 17 mmol/L (22-30); Chloride 109 mmol/L (98-107); Estimated Creatinine Clearance 36 ml/min; Glucose 157 mg/dl (70-99); Potassium 3.9 mmol/L (3.5-5.1); Sodium 134 mmol/L (135-145); eGFR 41.81
--- NOTE | 2023-05-05 07:15 | PN.DE.MGMTRT ---
Insulin Management
- -
05/04/2023: Diabetes Management Consult
37 year old female with multifocal pneumonia and influenza A complicated by hypoxia.�
PMH includes: HTN, T2DM, A1C 10.4%, was taking Metformin 1000mg BID, Cr 1.6,eGFR 41.81, metformin on hold.
Pt was started on Lantus 10 units @ HS and NovoLog 3 units AC.
Glucose has improved since admission, FBG 172 this AM, premeal range 191-260 yesterday, Currently requiring 1-5 units of additional corrective insulin with meals. Pt reports that she had been monitoring her blood sugars and taking insulin in the
past but it became cost prohibitive and she stopped taking insulin and checking blood sugars.
She reports that she has no insurance and can not afford insulin. She gets her routine care through the [facility] which she recently joined.
Says the only medication she can afford is Metformin. Explained to pt that her A1C is not at goal and will require insulin for optimal blood glucose control. Discussed [employer] brand Novolin that is $62.46 for 6 pens and [employer] ReliOn glucose
monitor and she was amenable to that.
Will start 70/30, 15 units BID, 1st dose this evening. MFM remains on hold given Cr 1.6, eGFR 41.81
Pt declined monitor and insulin instructions, stating that she knows how to check her blood sugar and is comfortable administering insulin at home.
05/05/2023 Diabetes Management Follow up
Due to cost patient regimen changed to 15 units 70/30 BID. Patient received first dose with dinner last evening. HS glucose 117, fasting glucose today 157. Will make no change to dinner 70/30 dose. Will follow glucose today to determine if 15
units 70/30 is adequate. Moderate corrective reduced to low corrective. cr remains 1.6, efgr 41.81.
Diabetes History
- -
Type of Diabetes: 2
Pre-Admission Diabetes Regimen
05/05/23
05:07
Creatinine 1.6 H
Lab Results
Hemoglobin A1c 10.4 % (4.0-5.6) H 05/03/23 05:11
Insulin Pump Settings
IP Diabetes Regimen
05/04/23 05/04/23 05/04/23
07:30 12:49 16:22
Glucose
POC Glucose 160 H 252 H 174 H
05/04/23 05/05/23
22:09 05:07
Glucose 157 H
POC Glucose 117 H
Meal type: Dinner
Amount consumed: 100%
Patient Education
[2023-05-05 08:25] VITALS: BP 163/105
--- NOTE | 2023-05-05 08:37 | PHA.VAN.FU ---
Vancomycin Assessment / Plan
- Assessment
Renal Function: Stable
WBC's are: WNL
In the past 24 hrs, patient has been: Afebrile
Concomitant Antimicrobials: ceftriaxone, azithromycin, oseltamivir
- Assessment - Therapeutic Drug Monitoring
Random Level: 18.2 - drawn ~19H after 1500mg loading dose
- Dosing Plan
Dosing by Level: Re-dose today (Vanc 500mg)
- Monitoring Plan
Random Level: 05/05 06
- Follow Up
Pharmacy will continue to follow.
Vancomycin Follow UP
- -
Patient Age: 37
Patient Sex: Female
Vancomycin Day #: 2
Indication: Pulmonary/Respiratory
Requesting Provider: Jai Doty
Pertinent Antimicrobial Allergies:
NKDA
Height / Weight:
Height 4 ft 8 in
Actual Weight 65.771 kg
Pertinent Past Medical History: DM, BMI ~32.5
- Vital Signs / Lab Results
Temp Pulse Resp BP Pulse Ox
99.4 F 104 20 156/87 95
05/04/23 23:26 05/04/23 23:26 05/04/23 23:26 05/04/23 23:26 05/04/23 23:54
Lab Results - Hematology
05/02/23 05/03/23 05/04/23
22:22 05:11 04:41
WBC 9.7 8.0 9.9
05/05/23
05:06
WBC 9.5
Lab Results - Chemistry
05/02/23 05/03/23 05/03/23
22:22 00:45 05:11
BUN 31 H 33 H 33 H
Creatinine 1.5 H 1.5 H 1.5 H
Estimated Creat Clear 38 38
Albumin 2.7 L
05/03/23 05/03/23 05/03/23
06:00 07:36 12:00
BUN Cancelled 34 H Cancelled
Creatinine Cancelled 1.5 H Cancelled
Estimated Creat Clear Cancelled 38 Cancelled
Albumin
05/03/23 05/03/23 05/04/23
16:00 20:00 04:41
BUN Cancelled Cancelled 42 H
Creatinine Cancelled Cancelled 1.6 H
Estimated Creat Clear Cancelled Cancelled 36
Albumin
05/05/23
05:07
BUN 39 H
Creatinine 1.6 H
Estimated Creat Clear 36
Albumin
05/02/23 05/03/23
22:22 02:00
Lactic Acid 1.0 Cancelled
Microbiology Results
05/02/23 22:22 Blood Culture - Preliminary
Blood/Venous No Growth in 48 hours- Final report to follow
05/02/23 22:22 Blood Culture - Preliminary
Blood/Venous No Growth in 48 hours- Final report to follow
Therapeutic Drug Monitoring
Random Vancomycin 18.2 ug/ml 05/05/23 05:07
[2023-05-05] MEDS: NSS 1000 IV (08:45)
[2023-05-05] MEDS: MUCINEX 600 MG PO ×2 (08:45→20:19)
[2023-05-05] MEDS: COREG 3.125 MG PO ×2 (08:45→20:18)
[2023-05-05] MEDS: NORVASC 5 MG PO ×2 (08:46→20:19)
[2023-05-05] MEDS: NOVOLOG FLEXPEN-LOW RESISTANCE SC (08:46)
[2023-05-05] MEDS: TAMIFLU 30 MG PO ×2 (08:46→20:19)
[2023-05-05] MEDS: OSCAL 500 + D 500 MG PO ×3 (08:46→22:19)
[2023-05-05 08:47] LABS: Glucose - Point of Care 147 mg/dl (70-99)
[2023-05-05] MEDS: NOVOLOG MIX 70/30 FLEXPEN SC ×2 (08:47→13:23)
--- NOTE | 2023-05-05 09:08 | W.PN.HOSP.TC ---
Today's Communication/Plan
-
see A/P
Assessment / Plan
Assessment / Plan
37 y.o with multifocal pneumonia and influenza A complicated by hypoxia.�
A/P:
# Acute hypoxic respiratory insufficiency, due to influenza A infection and CAP
Weaned 4-5 L of oxygen to 3L NC, cont to wean as tolerated. She does not wear oxygen at home
# Sepsis, present upon admission, due to Influenza A infection and Multifocal pneumonia
Procalcitonin elevated at 2.35
Check MRSA screen
Continue Rocephin/azithromycin , added empiric vancomycin
Cont Tamiflu x5 days
Cont bronchodilators, incentive spirometry/Acapella valve
fever has resolved and white count WNL
PT OT eval for weakness
# Acute kidney injury, Secondary to sepsis
Creatinine remain at 1.6, was 1.5 upon admission, baseline 1.1
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
continue IV fluid, trend SCr
# Uncontrolled Diabetes with hyperglycemia
No evidence of DKA, patient has non-anion gap metabolic acidosis
Cont diabetic diet
Hemoglobin A1c 10.4, diabetes nurse practitioner on board
Pt was switched to Insulin 70/30 at 15 units BID by DM STATION CAPTAIN
continue sliding scale insulin
Hold metformin due to JOHN
# Essential hypertension
Hold losartan due to JOHN
Started amlodipine 5 mg twice daily, Add coreg 3.125 BID
Secondary HTN work up: check TSH reflex Ft4, check echo, check renal artery US, check renin/aldosterone, metanephrine and catecholamines, UDS
# Hyponatremia - Suspect mild SIADH given acute onset of symptoms.�
Sodium improved to 134 today, was 126 upon admission
Continue to trend
# Acute anemia superimposed on chronic anemia
Suspect acute anemia from sepsis vs dilutional from IVFs
Hemoglobin 10.4 today, was 11.8 upon admission, baseline 11.4
Monitor
# Left upper extremity edema
Suspect due to infiltrated IV
Dopplers negative for DVT
# Hyperchloremic non-anion gap metabolic acidosis
Hyperchloremia has improved
# Hypocalcemia
# Low vitamin D level
started calcium carbonate supplement, cont
Hypocalcemia has improved
25 OH vitamin D level low, started ergocalciferol 80 000 units weekly for 8 weeks then 1000 units daily thereafter
DVT ppx - HSQ
Full Code
total time spent 51 min
Anticipated Discharge: > 48 hours
Subjective/Interval History
-
Date of Service: May 05, 2023
Objective Data
-
Labs:
Laboratory Results
05/05/23 05/05/23
05:06 05:07
WBC 9.5
Hgb 10.4 L
Hct 29.8 L
Plt Count 222
Sodium 134 L
Potassium 3.9
Chloride 109 H
Carbon Dioxide 17 L
BUN 39 H
Creatinine 1.6 H
Glucose 157 H
Calcium 8.3 L
Vital Signs:
Vital Signs
Temp Pulse Resp BP Pulse Ox
37.4 C 111 20 179/111 95
05/04/23 23:26 05/05/23 08:46 05/04/23 23:26 05/05/23 08:46 05/04/23 23:54
I&O
05/04/23 05/05/23 05/06/23
06:59 06:59 06:59
Intake Total 2099 2935 / 2935
Balance 2099 2935 / 2935
Review of Systems
-
Constitutional: Reports Weakness
Respiratory: Reports Trouble Breathing
Physical Exam
-
General: Well Developed, Respiratory Distress and Conversant (speak in full sentences)
HEENT: Normocephalic, Atraumatic, Nose Appears Normal, Ears Appear Normal and Oxygen (3L NC)
Respiratory: Crackles and Non Labored Respirations; Negative Wheezes or Accessory Resp Muscle Use
Cardiac: Regular Rhythm and S1/S2
GI: Soft and Nontender
Skin: Warm and Dry
Neuro: Awake and Alert
Psych: Calm and Intact Judgement/Insight
Data Reviewed
-
Diagnostic Radiology: Image personally visualized and interpreted and Report Reviewed by me
Labs: Labs Reviewed by me
[2023-05-05 10:02] LABS: TSH Reflex To Free T4 4.11 uIU/ml (0.47-4.68)
[2023-05-05 13:07] LABS: Glucose - Point of Care 151 mg/dl (70-99)
[2023-05-05] MEDS: VANCOCIN HCL 500 MG 100 IV (13:08)
[2023-05-05 13:10] VITALS: BP 161/99
[2023-05-05] MEDS: APRESOLINE 5 MG IV (13:11)
[2023-05-05] MEDS: NOVOLOG FLEXPEN-LOW RESISTANCE 1 UNITS SC ×2 (13:15→18:35)
[2023-05-05 13:47] LABS: Amphetamines Negative (Negative); Barbiturates Negative (Negative); Benzodiazepines Negative (Negative); Buprenorphine Negative (Negative); Cocaine Negative (Negative); Marijuana Negative (Negative); Methadone Negative (Negative); Methamphetamines Negative (Negative); Opiates Negative (Negative); Phencyclidine Negative (Negative); Tricyclic Antidepressants Negative (Negative)
[2023-05-05] MEDS: NOVOLOG FLEXPEN 3 UNITS SC (14:20)
[2023-05-05 14:22] VITALS: BP 162/94; PULSE 107; PULSE 99; O2SAT 92; O2SAT 93
[2023-05-05 16:00] VITALS: BP 155/88
--- NOTE | 2023-05-05 16:04 | CM ---
Patient with multifocal pneumonia,influenza and hypoxia.�No O2 at baseline. Now on 3L. NO INSURANCE. Continuing to wean O2 to baseline. Will continue to follow medical progression and O2 wean.
[2023-05-05 18:08] LABS: Glucose - Point of Care 194 mg/dl (70-99)
--- NOTE | 2023-05-05 18:10 | PTCARENOTE ---
Patient's POX 88-89% on 3L, patient increased to 4L, POX improved to 92%. Patient states she only feels comfortable sitting on side of bed and leaning onto tray table, feels tightness in back and increased congestion laying in bed or sitting in
chair. Patient denies chest pain. MD made aware, order for EKG and troponin placed.
[2023-05-05] MEDS: NOVOLOG MIX 70/30 FLEXPEN 15 UNITS SC (18:35)
--- NOTE | 2023-05-05 19:05 | PTCARENOTE ---
Patient increased to 5L to maintain POX of 92%, MD made aware, EKG obtained by tech and results sent to MD. MD called to floor, telephone order taken by this RN for VQ scan in AM, DC IVFs, stat D-dimer lab draw. Patient placed on telemetry per MD.
[2023-05-05 19:38] LABS: Troponin I 0.025 ng/ml
[2023-05-05 19:42] VITALS: BP 183/114
[2023-05-05] MEDS: NSS IV (19:48)
[2023-05-05 20:08] LABS: D-Dimer 2.25 ug/mlFEU (0.00-0.50)
[2023-05-05] MEDS: HEPARIN 5000 UNITS SC (20:18)
--- NOTE | 2023-05-05 20:44 | W.PN.UPDATE ---
Update Note
Progress Note Update
Patient is hypoxic, SPO2 90% on 6 L of O2. B/L lung sound with crackle and coarse lung sound. Patient was placed on midflow 12L of O2.
D Dimer result is-----> 2.25. CT/PE ordered and result is Neg for PE.
will continue duo nebs as needed.
[2023-05-05 22:06] LABS: Glucose - Point of Care 221 mg/dl (70-99)
[2023-05-05] MEDS: DUONEB 3 ML INH (22:06)
[2023-05-05] MEDS: STERILE WATER FOR INJECTION 10 ML IV (22:19)
[2023-05-05] MEDS: ROCEPHIN 1000 MG IV (22:20)
[2023-05-05] MEDS: ZITHROMAX INFUSION 250 IV (23:28)
[2023-05-05 23:34] VITALS: BP 127/85
[2023-05-06] VITALS (7 sets, daily range): BP systolic 132–158; BP diastolic 78–99; PULSE 92; O2SAT 94
[2023-05-06 01:52] LABS: Glucose - Point of Care 168 mg/dl (70-99)
--- NOTE | 2023-05-06 03:15 | PTCARENOTE ---
Patient with increased SOB and oxygen demand at beginning of this shift; dayshift RN received orders at approximately [address] Doty to d/c IVFs and obtain d-dimer; RT called to the floor to assess patient; patient requiring 10L oxygen via
midflow; Ricardo HERNANDEZ notified; D-dimer, 2.25; orders obtained for chest CT to r/o PE; Neb treatment given @ 2206; emotional support provided to patient.
--- NOTE | 2023-05-06 03:48 | PTCARENOTE ---
Patient requested to have BS checked @ 0145; BS 168.
[2023-05-06 06:14] LABS: Hematocrit 28.4 % (37.0-47.0); Hemoglobin 9.7 g/dL (12.0-16.0); Mean Corp Hgb Conc. 34.2 g/dL (33.0-37.0); Mean Corpuscular Hgb 29.3 pg (27.0-31.0); Mean Corpuscular Volume 85.8 fL (81.0-99.0); Mean Platelet Volume 11.2 fL (7.4-10.4); Platelet Count 235 10^3/uL (130-400); Red Blood Cell Count 3.31 10^6/uL (4.20-5.40); Red Cell Dist. Width 14.6 % (11.5-14.5); White Blood Cell Count 8.8 10^3/uL (4.8-10.8)
[2023-05-06 06:36] LABS: Blood Urea Nitrogen 38 mg/dl (7-17); Carbon Dioxide 15 mmol/L (22-30); Chloride 111 mmol/L (98-107); Estimated Creatinine Clearance 32 ml/min; Glucose 151 mg/dl (70-99); Magnesium 2.1 mg/dl (1.6-2.3); Sodium 132 mmol/L (135-145)
[2023-05-06 06:50] LABS: Vancomycin Random 16.8 ug/ml
--- NOTE | 2023-05-06 07:19 | PN.DE.MGMTRT ---
Insulin Management
- -
05/04/2023: Diabetes Management Consult
37 year old female with multifocal pneumonia and influenza A complicated by hypoxia.�
PMH includes: HTN, T2DM, A1C 10.4%, was taking Metformin 1000mg BID, Cr 1.6,eGFR 41.81, metformin on hold.
Pt was started on Lantus 10 units @ HS and NovoLog 3 units AC.
Glucose has improved since admission, FBG 172 this AM, premeal range 191-260 yesterday, Currently requiring 1-5 units of additional corrective insulin with meals. Pt reports that she had been monitoring her blood sugars and taking insulin in the
past but it became cost prohibitive and she stopped taking insulin and checking blood sugars.
She reports that she has no insurance and can not afford insulin. She gets her routine care through the [facility] which she recently joined.
Says the only medication she can afford is Metformin. Explained to pt that her A1C is not at goal and will require insulin for optimal blood glucose control. Discussed [employer] brand Novolin that is $62.46 for 6 pens and [employer] ReliOn glucose
monitor and she was amenable to that.
Will start 70/30, 15 units BID, 1st dose this evening. MFM remains on hold given Cr 1.6, eGFR 41.81
Pt declined monitor and insulin instructions, stating that she knows how to check her blood sugar and is comfortable administering insulin at home.
05/05/2023 Diabetes Management Follow up
Due to cost patient regimen changed to 15 units 70/30 BID. Patient received first dose with dinner last evening. HS glucose 117, fasting glucose today 157. Will make no change to dinner 70/30 dose. Will follow glucose today to determine if 15
units 70/30 is adequate. Moderate corrective reduced to low corrective. cr remains 1.6, efgr 41.81.
05/06/2023 Diabetes Management Follow up
Due to multiple tests yesterday patient was NPO and did not receive AM 70/30 dose. Glucose did trend up to 194 pre dinner. Will continue 15 units 70/30 BID with breakfast and dinner. Will follow glucose results for possible needed increase in
dose. I spoke with patient, she had an appointment scheduled with [facility]. She states she has taken insulin in the past and feels comfortable with self administration. CR 1.8, eGFR 36.30 today.
Diabetes History
- -
Type of Diabetes: 2 requiring insulin
Pre-Admission Diabetes Regimen
05/06/23
05:44
Creatinine 1.8 H
Lab Results
Hemoglobin A1c 10.4 % (4.0-5.6) H 05/03/23 05:11
Insulin Pump Settings
IP Diabetes Regimen
05/05/23 05/05/23 05/05/23
08:45 13:05 18:06
Glucose
POC Glucose 147 H 151 H 194 H
05/05/23 05/06/23 05/06/23
22:05 01:50 05:44
Glucose 151 H
POC Glucose 221 H 168 H
Meal type: Lunch
Amount consumed: 100%
Patient Education
[2023-05-06 07:33] LABS: Glucose - Point of Care 143 mg/dl (70-99)
--- NOTE | 2023-05-06 07:40 | CON.CAR ---
Addendum entered and electronically signed by José Shields MD 05/06/23 15:24:
I saw and examined the patient.
The Tie Cutter's note was reviewed and I agree with the note.
Comment: Briefly, 37-year-old woman with past medical history of diabetes and hypertension who presented with dyspnea and cough found to have sepsis secondary to influenza
Received aggressive IV fluid resuscitation. Unfortunately her respiratory status worsened ultimately requiring 10 L mid flow oxygen. Patient reports significantly worsening peripheral edema during her hospitalization.
Underwent transthoracic echocardiogram which showed mildly reduced LV function EF 40-45% and severely elevated right atrial pressure
proBNP was elevated to 8,700
Agrree with stopping IVF and start IV Lasix BID to treat decompensated heart failure
Home losartan on hold, would add back when her renal function stabilizes
Agree with low-dose Coreg
Etiology of her cardiomyopathy is unclear to me, would consider outpatient ischemic evaluation and eventual repeat echo
We will continue to follow
Original Note:
Consultation
Consultation Request
Date/Time Consultation Requested: 05/05/23 at 1826
Date/Time Consultation Performed: 05/06/23 at 1130
Requesting Provider: Dr. Doty
Performing Provider: Dr. Shields
Reason for Consultation: Hypoxia, abnormal echo
Medical History
-
History of Present Illness:
Patient came to [facility] 05/02/23 with cough and SOB and was admitted with influenza, cardiology is now consulted for an abnormal echo. Patient lives independently and has a job. Patient gets help from her sister with paying for retinal injections and her
sister also recently helped her with completing paperwork for the [facility] as patient makes too much money for Medicaid and food stamps. Patient's sister was on the phone throughout this HPI. Patient came to [facility] with cough and SOB 05/02/23
and was positive for flu. She was admitted with hypoxia and sepsis. She was also treated for multifocal PNA. Patient received a total of 9 L IVFs. Patient says that she feels better today and attributes this to improved fevers, but overnight she was
noted to have worsening hypoxia and D-dimer was elevated so she was sent for CT for PE and it was negative, but it did show B/L pleural effusions and B/L opacities. Patient went from 3 L daytime yesterday to 10 L last night. She has improved a bit
and is down to 8 L midflow now, but she is dyspneic with conversation. Patient says that in hindsight she started with pittine LE edema and orthopnea 2-3 weeks prior to admission. No h/o cardiac testing and overall has had limited medical care in
the last few years due to finances.
PMH:
DM
Diabetic retinopathy
Past Medical History
Past Medical History: Other (in HPI)
Past Surgical History: Tonsilectomy
Social History
Tobacco: Non-Smoker
Alcohol: None
Drug: None
Personal: Single
Living: Alone
Employment: Employed
Family History
Family History: Other (paternal grandmother with possible CAD)
Allergies / Home Medications
Allergy/AdvReac Type Severity Reaction Status Date / Time
No Known Allergies Allergy Verified 05/02/23 21:02
Medication Instructions Recorded Confirmed Type
losartan 50 mg tablet 50 mg PO DAILY #30 tabs 03/12/23 Rx
metformin 1,000 mg tablet 1,000 mg PO BID #60 tabs 03/12/23 Rx
Review of Systems
-
History Source: Patient and Family (sister by phone)
All other systems: Negative unless noted
Physical Exam
Vital Signs
Temp Pulse Resp BP Pulse Ox
98.2 F 92 20 132/78 99
05/06/23 04:00 05/06/23 04:00 05/06/23 04:00 05/06/23 04:00 05/06/23 04:00
GEN: NAD. AAOx3
HEENT: EOMI, MMM
LUNGS: Dyspneic with conversation. Wearing oxygen at 8 L midflow. Coarse rales and rhonchi throughout.
CV: Reg, S1/S2, o murmur
ABD: soft, BS+, NT, ND. Pitting edema lower abdomen
EXT: +3 hard edema B/L LE to the upper thighs
NEURO: Gross non-focal
SKIN: Warm, dry and pink. No rash
Lab Results
05/06/23 05:44
Troponin I 0.020 ng/ml 05/06/23 05:43
Impression / Plan
-
PCP: Scheduled to be seen in the [facility]
Cardiology: None prior to admission
Impression:
Acute hypoxic respiratory insufficiency
Sepsis
Influenza
Multifocal CAP
Acute HFrEF
Newly diagnosed CM EF 40%
JOHN, possible CKD
DM
Diabetic retinopathy
Echo 05/05/23: EF 40-45%, mild MR, mild TR with PAP 30-35 mmHg, small pericardial effusion
Plan:
-Patient came to [facility] 05/02/23 with cough and SOB and was admitted with influenza, cardiology is now consulted for an abnormal echo. Patient lives independently and has a job. Patient gets help from her sister with paying for retinal injections and
her sister also recently helped her with completing paperwork for the [facility] as patient makes too much money for Medicaid and food stamps. Patient's sister was on the phone throughout this HPI. Patient came to [facility] with cough and SOB
05/02/23 and was positive for flu. She was admitted with hypoxia and sepsis. She was also treated for multifocal PNA. Patient received a total of 9 L IVFs. Patient says that she feels better today and attributes this to improved fevers, but overnight
she was noted to have worsening hypoxia and D-dimer was elevated so she was sent for CT for PE and it was negative, but it did show B/L pleural effusions and B/L opacities. Patient went from 3 L daytime yesterday to 10 L last night. She has improved
a bit and is down to 8 L midflow now, but she is dyspneic with conversation. Patient says that in hindsight she started with pittine LE edema and orthopnea 2-3 weeks prior to admission. No h/o cardiac testing and overall has had limited medical care
in the last few years due to finances.
-Talked with patient in room while her sister was on speakerphone for about 15 minutes. Reviewed admission thus far, echo findings and acute HF diagnosis.
-Start Lasix 40 mg IV BID now.
-Following initial diuresis will add B/L LE tubigrips in AM
-Will add sodium and fluid restriction to diet.
-Patient received 9 L IVFs this admission.
-EF reduced at 40%, no previous echo for comparison. Agree with Coreg 6.25 mg BID started by hospitalist attending. Would not start MILADY/ARB/aldosterone antagonist in the setting of JOHN.
-GDMT options will be limited due to lack of insurance.
-Patient has been accepted to the [facility] thanks to her sister helping with paperwork, this was done prior to admission.
-Patient should have an eventual ischemic evaluation. There is no mention of coronary calcification on CT chest. Currently in JOHN. Consider eventual stress test, but this would have to be through the [facility] as the patient is not able to
pay out of pocket.
-ECG reviewed by me without ischemic changes.
[2023-05-06] MEDS: NOVOLOG FLEXPEN-LOW RESISTANCE SC ×2 (07:57→16:51)
[2023-05-06] MEDS: NSS 250 IV (08:00)
[2023-05-06] MEDS: MUCINEX 600 MG PO (08:00)
[2023-05-06] MEDS: COREG 3.125 MG PO (08:01)
[2023-05-06] MEDS: TAMIFLU 30 MG PO ×2 (08:01→20:34)
[2023-05-06] MEDS: NORVASC 5 MG PO (08:03)
[2023-05-06] MEDS: OSCAL 500 + D 500 MG PO ×3 (08:03→22:24)
[2023-05-06] MEDS: NOVOLOG MIX 70/30 FLEXPEN 15 UNITS SC ×2 (08:04→17:32)
--- NOTE | 2023-05-06 08:29 | CON.PUL ---
Consultation
Consultation Request
Date/Time Consultation Requested: 05/06/2023-8 AM
Date/Time Consultation Performed: 05/06/2023-8:30 AM
Requesting Provider: Hospitalist
Performing Provider: Dr. Saenz
Reason for Consultation: Shortness of breath and pneumonia
Medical History
-
Chief Complaint: Shortness of breath
History of Present Illness:
37-year-old female with a history of hypertension and diabetes presented with shortness of breath and found to have influenza and pneumonia-pulmonary consulted for shortness of breath/pneumonia/influenza 05/06/2023. Patient states that she had a
rough night. She was short of breath had to sit up with her head tilted forward to help her breathe. She has some chest congestion and productive cough. It is not discolored sputum. She does not complain of fevers, chills or night sweats. She
does have shortness of breath, no chest pain, pleurisy, abdominal pain, nausea or increase in her leg swelling.
Past Medical History
Past Medical History: None (Hypertension. Diabetes. Obesity.)
Social History
Tobacco: Non-smoker
Alcohol: None
Drug: None
Personal:
Living: With Family
Occupational Exposures: No known asbestos exposure
Environmental Exposures: No known tuberculosis exposure
Family History
Family History: Other (Mother-cancer, wsdwnp-yxkkzl-dltl cancer)
Allergies / Home Medications
Allergies
Allergy/AdvReac Type Severity Reaction Status Date / Time
No Known Allergies Allergy Verified 05/02/23 21:02
Home Medications
Medication Instructions Recorded Confirmed Last Taken Type
losartan 50 mg tablet 50 mg PO DAILY #30 tabs 03/12/23 Unknown Rx
metformin 1,000 mg tablet 1,000 mg PO BID #60 tabs 03/12/23 Unknown Rx
Review of Systems
-
Unable to Obtain full review of systems at this time due to: Other (Per HPI)
Vitals / Labs / Diagnostic Testing
Vital Signs
Temp Pulse Resp BP Pulse Ox
98.6 F 100 18 158/97 97
05/06/23 07:20 05/06/23 08:03 05/06/23 07:20 05/06/23 08:03 05/06/23 07:20
Lab Data
05/06/23 05:44
Microbiology
05/02/23 22:22 Blood/Venous Blood Culture - Preliminary
No Growth in 72 hours- Final report to follow
05/02/23 22:22 Blood/Venous Blood Culture - Preliminary
No Growth in 72 hours- Final report to follow
05/04/23 08:20 Nose MRSA Screen - Final
No Methicillin Resistant Staphylococcus aureus isolated.
Diagnostic Testing:
Physical Exam
-
Exam:
Well-nourished and well-developed in no apparent distress
HEENT-atraumatic, normocephalic
Neck-supple, no JVD, no bruit
Heart-regular rate and rhythm-no murmurs, rubs or gallops
Chest with diminished breath sounds, crackles, few rhonchi
Abdomen-soft, nontender, nondistended, no hepatosplenomegaly
Extremities-no cyanosis, clubbing, edema and good peripheral pulses
Integument-intact, no rashes, lesions or ecchymosis
Neurology-alert and oriented, nonfocal motor and sensory exam
Assessment
-
37-year-old female with a history of hypertension and diabetes presented with shortness of breath and found to have influenza and pneumonia-pulmonary consulted for shortness of breath/pneumonia/influenza 05/06/2023.
Assessment
Community-acquired pneumonia-multifocal
Influenza
Hyperglycemia
Hyponatremia
Metabolic acidosis
Mild anemia-hemoglobin 10.5-normocytic
JOHN
Conditions present prior to admission:
Hypertension.
Diabetes.
Obesity.
Stunted growth-precocious puberty
Plan
Respiratory decompensation due to influenza and multifocal community-acquired pneumonia
Supplemental oxygen-attempt to wean
Mucolytic's-intensify Mucinex
Nebulizers if needed-currently not bronchospastic
Follow-up radiographically
Aspiration precautions
Check cultures
Tamiflu continues
Respiratory isolation per protocol
Empiric antibiotics-Rocephin and azithromycin
Follow leukocytosis
Monitor pleural effusion
Thoracentesis if effusions and large
Monitor blood sugar
Insulin supplementation as needed
Intravenous fluid resuscitation
Norepinephrine not needed
Monitor renal function
Replace electrolytes
Follow hemoglobin
Transfuse if needed
DVT prophylaxis-on heparin
Nutrition
Early mobilization
Outpatient pulmonary follow-up
Outpatient follow-up CT chest to ensure clearing and no endobronchial obstruction
Diagnostic data:
Chest x-ray 05/02/2023-bilateral pneumonia, small left pleural effusion
CT chest 05/05/2023-no evidence for pulm embolism, widespread marked parenchymal abnormalities suggestive of pneumonia and small bilateral pleural effusions right greater than left, central lesion on the right with postobstructive process in the right
middle lobe cannot be excluded
upper extremity ultrasound 05/03/2023-no evidence for left upper extremity thrombosis
Echocardiogram 05/05/2023%EF, Mild mitral regurgitation
Data Reviewed
-
EKG: Report reviewed by me
Radiology: Report reviewed by me
CT Scan: Report reviewed by me
Ultrasound: Report reviewed by me
Labs: Labs reviewed by me
Old Records: Reviewed
Total Time Spent with Patient (in minutes): 55
[2023-05-06 08:49] LABS: Hematocrit 30.8 % (37.0-47.0); Hemoglobin 10.5 g/dL (12.0-16.0); Mean Corp Hgb Conc. 34.1 g/dL (33.0-37.0); Mean Corpuscular Hgb 29.5 pg (27.0-31.0); Mean Corpuscular Volume 86.5 fL (81.0-99.0); Mean Platelet Volume 11.3 fL (7.4-10.4); Platelet Count 262 10^3/uL (130-400); Red Blood Cell Count 3.56 10^6/uL (4.20-5.40); Red Cell Dist. Width 14.6 % (11.5-14.5); White Blood Cell Count 9.6 10^3/uL (4.8-10.8)
[2023-05-06 09:00] LABS: APTT 35.5 Sec (23.4-35.0)
--- NOTE | 2023-05-06 09:02 | W.PN.HOSP.TC ---
Addendum entered and electronically signed by Kaela Doty MD 05/06/23 15:26:
# Acute hypoxic respiratory failure
Original Note:
Today's Communication/Plan
-
see A/P
Assessment / Plan
Assessment / Plan
37 y.o with multifocal pneumonia and influenza A complicated by hypoxia.�
A/P:
# Acute hypoxic respiratory insufficiency, due to influenza A infection and CAP POA
O2 increased to 10 L midflow, wean as tolerated, she is not on home O2
CT PE was ordered by night team, neg for PE
Noted low EF at 40-45%, Card consulted for possible acute CHF
# Sepsis POA, due to Influenza A infection and Multifocal pneumonia
Procalcitonin elevated at 2.35
MRSA screen negative
Continue Rocephin/azithromycin, DC empiric vancomycin with negative MRSA screen
Cont Tamiflu, consider increasing duration for worsening respiratory symptoms
Cont bronchodilators, incentive spirometry/Acapella valve
fever has resolved and white count WNL
PT OT eval for weakness, likely no needs
# Acute kidney injury, secondary to sepsis
Creatinine today at 1.8, was 1.5 upon admission, baseline 1.1
Hold HABILITATION WORKER metformin/losartan
NSS [address] PE, then hold IV fluid, trend SCr
# Essential hypertension
Hold losartan due to JOHN
Started amlodipine 5 mg twice daily, added coreg 3.125 BID
Secondary HTN work up initiated: TSH 4.11, renal artery US neg for GENO, UDS negative
follow renin/aldosterone levels, metanephrine and catecholamines
# New onset systolic CHF
Echo obtained for HTN work up and noted Mildly reduced left ventricular systolic function. EF 40-45%.
Card CS for possible acute CHF
# Uncontrolled Diabetes with hyperglycemia
No evidence of DKA, patient has non-anion gap metabolic acidosis
Cont diabetic diet
Hemoglobin A1c 10.4, diabetes nurse practitioner on board , cont Insulin 70/30 at 15 units BID (changed from basal bolus due to cost)
continue sliding scale insulin
Hold metformin due to JOHN
# Hyponatremia - Suspect mild SIADH given acute onset of symptoms.�
Sodium today at 132, was 126 upon admission
Continue to trend
# Acute anemia superimposed on chronic anemia
Suspect acute anemia from sepsis vs dilutional from IVFs
Hemoglobin 10.5 today, was 11.8 upon admission, baseline 11.4
Monitor
# Left upper extremity edema
Suspect due to infiltrated IV
Dopplers negative for DVT
# Hyperchloremic non-anion gap metabolic acidosis
Hyperchloremia has improved
# Hypocalcemia
# Low vitamin D level
started calcium carbonate supplement, cont
Hypocalcemia has improved
25 OH vitamin D level low, started ergocalciferol 80 000 units weekly for 8 weeks then 1000 units daily thereafter
# Stunted growth
Pt informed that she had precocious puberty, was seen at [facility] for her pituitary gland (unclear detail).
Could this have contributed to her reduced EF?
Request record from [facility]
Rec pt to follow up with Endo outpt
DVT ppx - HSQ
Full Code
total time spent 51 min
Anticipated Discharge: > 48 hours
Subjective/Interval History
-
Date of Service: May 06, 2023
Objective Data
-
Labs:
Laboratory Results
05/06/23 05/06/23 05/06/23
05:43 05:44 08:34
WBC 8.8 9.6
Hgb 9.7 L 10.5 L
Hct 28.4 L 30.8 L
Plt Count 235 262
APTT 35.5 H
Sodium 132 L
Potassium 4.0
Chloride 111 H
Carbon Dioxide 15 L
BUN 38 H
Creatinine 1.8 H
Glucose 151 H
Calcium 8.0 L
Vital Signs:
Vital Signs
Temp Pulse Resp BP Pulse Ox
37.0 C 100 18 158/97 97
05/06/23 07:20 05/06/23 08:03 05/06/23 07:20 05/06/23 08:03 05/06/23 07:20
I&O
05/05/23 05/06/23 05/07/23
06:59 06:59 06:59
Intake Total 2935 / 2935 1330 / 1330
Balance 2935 / 2935 1330 / 1330
Review of Systems
-
Constitutional: Reports Weakness
Respiratory: Reports Trouble Breathing
Physical Exam
-
General: Respiratory Distress, Conversant (speak in full sentences) and Other (stunted growth )
HEENT: Normocephalic, Atraumatic, Nose Appears Normal, Ears Appear Normal and Oxygen (10 L mid flow )
Respiratory: Crackles and Non Labored Respirations; Negative Wheezes or Accessory Resp Muscle Use
Cardiac: Regular Rhythm, S1/S2 and Tachycardic
GI: Soft and Nontender
Skin: Warm and Dry
Neuro: Awake and Alert
Psych: Calm and Intact Judgement/Insight
Data Reviewed
-
Diagnostic Radiology: Image personally visualized and interpreted and Report Reviewed by me
Medical Tests (Nuc Med, Echo etc): Report Reviewed by me (echo)
Labs: Labs Reviewed by me
Old Records: Requested
[2023-05-06 10:12] LABS: NT-proBNP 8700 pg/ml
--- NOTE | 2023-05-06 10:34 | PN.CDI ---
CDI
- -
CDI:
Physician Documentation Request
Admit Date: 05/02/23 23:02
Dear Doctor Lalitha,
05/05 Hospitalist note states 'Acute hypoxic respiratory insufficiency, due to influenza A infection and CAP POA. O2 increased to 10 L midflow '
05/04 DANCING MASTER notes states 'Patient is hypoxic, SPO2 90% on 6 L of O2. B/L lung sound with crackle and coarse lung sound. Patient was placed on midflow 12L of O2.'
05/04 nursing note 'Patient states she only feels comfortable sitting on side of bed and leaning onto tray table
Please clarify which of the following accurately represents the patient's respiratory status:
Acute respiratory failure - please specify type
Hypoxia
Other
Additional information for Respiratory Failure:
Recognized criteria for Respiratory Failure (Source: [facility] Hospitalist Dec 2012)
ABGs: (1 or more) Symptoms Please indicate type
1. p)2 <60 or RA SPO2 <91% on RA 1. Tachypnea, SOB, dyspnea Hypoxic
2. pCO2 50 and pH <7.35 2. Use of accessory muscles Hypercapnic
3. pO2 decrease of pCO2 increase by 3. Pallor or cyanosis Hypoxic and Hypercapnic
10 mmHg from baseline if known 4. Anxiety or restlessness
5. Unable to speak in full sentences
Supplemental O2 of > 40% (5LPM) Intubation is not required
Use of terms such as suspected, likely, concern for, or probable (associated with a specific diagnosis that is being evaluated, monitored, or treated as if it exists) are acceptable and can be coded in the inpatient setting, when documented at the
time of discharge.
Thank you,
Munira Brown RN, BSN
CDI Specialist
tiger text
Please use your independent medical judgment in providing your response.
[2023-05-06] MEDS: TYLENOL 650 MG PO (10:54)
[2023-05-06 12:02] LABS: Glucose - Point of Care 186 mg/dl (70-99)
[2023-05-06] MEDS: LASIX 40 MG IV ×2 (12:15→17:04)
[2023-05-06] MEDS: NOVOLOG FLEXPEN-LOW RESISTANCE 1 UNITS SC (12:16)
[2023-05-06 16:49] LABS: Glucose - Point of Care 110 mg/dl (70-99)
--- NOTE | 2023-05-06 17:09 | CM ---
Patient does not have insurance. Continues to require O2. Medicaid application in process. Cardio consult. Will continue to follow medical progression to determine appropriate discharge plan of care.
[2023-05-06] MEDS: DUONEB 3 ML INH (19:45)
[2023-05-06] MEDS: COREG 6.25 MG PO (20:34)
[2023-05-06] MEDS: MUCINEX 1200 MG PO (20:34)
[2023-05-06] MEDS: HEPARIN 5000 UNITS SC (20:36)
[2023-05-06 21:53] LABS: Glucose - Point of Care 103 mg/dl (70-99)
[2023-05-06] MEDS: STERILE WATER FOR INJECTION 10 ML IV (22:24)
[2023-05-06] MEDS: ROCEPHIN 1000 MG IV (22:24)
[2023-05-07 03:16] VITALS: BP 116/77
[2023-05-07 06:10] LABS: Hematocrit 27.8 % (37.0-47.0); Hemoglobin 9.6 g/dL (12.0-16.0); Mean Corp Hgb Conc. 34.5 g/dL (33.0-37.0); Mean Corpuscular Hgb 29.2 pg (27.0-31.0); Mean Corpuscular Volume 84.5 fL (81.0-99.0); Mean Platelet Volume 11.9 fL (7.4-10.4); Platelet Count 263 10^3/uL (130-400); Red Blood Cell Count 3.29 10^6/uL (4.20-5.40); Red Cell Dist. Width 14.5 % (11.5-14.5); White Blood Cell Count 9.4 10^3/uL (4.8-10.8)
[2023-05-07 06:36] LABS: Blood Urea Nitrogen 45 mg/dl (7-17); Calcium 8.4 mg/dl (8.4-10.2); Carbon Dioxide 16 mmol/L (22-30); Chloride 108 mmol/L (98-107); Estimated Creatinine Clearance 34 ml/min; Glucose 110 mg/dl (70-99); Magnesium 2.1 mg/dl (1.6-2.3); Potassium 3.7 mmol/L (3.5-5.1); Sodium 136 mmol/L (135-145); eGFR 38.88
[2023-05-07 07:39] LABS: Glucose - Point of Care 111 mg/dl (70-99)
[2023-05-07] MEDS: NOVOLOG FLEXPEN-LOW RESISTANCE SC ×3 (07:40→16:53)
[2023-05-07 07:53] VITALS: BP 164/96
[2023-05-07] MEDS: LASIX 40 MG IV ×2 (08:28→15:12)
[2023-05-07] MEDS: MUCINEX 1200 MG PO ×2 (08:57→21:05)
[2023-05-07] MEDS: COREG 6.25 MG PO ×2 (08:58→21:06)
[2023-05-07] MEDS: TAMIFLU 30 MG PO ×2 (08:58→21:06)
[2023-05-07] MEDS: OSCAL 500 + D 500 MG PO ×3 (09:00→21:07)
[2023-05-07] MEDS: HEPARIN 5000 UNITS SC ×2 (09:03→21:06)
[2023-05-07] MEDS: NOVOLOG MIX 70/30 FLEXPEN 15 UNITS SC ×2 (09:05→17:00)
--- NOTE | 2023-05-07 09:50 | W.PN.PUL.V3 ---
Today's Communication / Plan
-
.
Continue attempts at weaning FiO2.
Mucolytic.
Nebulizers.
Antibiotics.
Assessment
-
37-year-old female with a history of hypertension and diabetes presented with shortness of breath and found to have influenza and pneumonia-pulmonary consulted for shortness of breath/pneumonia/influenza 05/06/2023.
Assessment
Community-acquired pneumonia-multifocal
Influenza
Hyperglycemia
Hyponatremia
Metabolic acidosis
Mild anemia-hemoglobin 10.5-normocytic
JOHN
Conditions present prior to admission:
Hypertension.
Diabetes.
Obesity.
Stunted growth-precocious puberty
Plan
Respiratory decompensation due to influenza and multifocal community-acquired pneumonia
Supplemental oxygen-attempt to wean
Mucolytic's-intensify Mucinex
Nebulizers if needed-currently not bronchospastic
Decadron if becomes bronchospastic
Follow-up radiographically Several days
Aspiration precautions
Cultures reviewed.
Finite course of Tamiflu
Respiratory isolation per protocol
Empiric antibiotics-Rocephin and azithromycin
Follow leukocytosis
Follow pleural effusion
Thoracentesis if effusions and large
Monitor blood sugar
Insulin supplementation as needed
Patient had intravenous fluid resuscitation.
Diuresis as tolerated.
Monitor renal function, weight, lower extremity edema and electrolytes
Follow hemoglobin
Transfuse if needed
DVT prophylaxis-on heparin
Nutrition
Increase activity.
Reviewed with nursing
Outpatient pulmonary follow-up
Outpatient follow-up CT chest to ensure clearing and no endobronchial obstruction
Diagnostic data:
Chest x-ray 05/02/2023-bilateral pneumonia, small left pleural effusion
CT chest 05/05/2023-no evidence for pulm embolism, widespread marked parenchymal abnormalities suggestive of pneumonia and small bilateral pleural effusions right greater than left, central lesion on the right with postobstructive process in the right
middle lobe cannot be excluded
upper extremity ultrasound 05/03/2023-no evidence for left upper extremity thrombosis
Echocardiogram 05/05/2023%EF, Mild mitral regurgitation
Subjective Data
-
Date of Service:
Date of Service: May 07, 2023
Chief Complaint: Pulmonary Follow Up and Dyspnea Follow Up
Subjective:
Somewhat better, still on high flow oxygen, still has chest congestion and a productive cough, no abdominal pain or chest pain
Review of Systems
General: Other ( per HPI)
Objective Data
Data Reviewed
Vital Signs / I&O:
Vital Signs
Temp Pulse Resp BP Pulse Ox
99.1 F 100 30 164/96 94
05/07/23 07:53 05/07/23 08:58 05/07/23 07:53 05/07/23 08:58 05/07/23 07:53
Intake and Output
05/06/23 05/07/23 05/08/23
06:59 06:59 06:59
Intake Total 1330 / 1330 1380 / 1380 250 / 250
Balance 1330 / 1330 1380 / 1380 250 / 250
SaO2: 94
Nasal Cannula flow liters per minute: 5
Physical Exam
General: Respiratory Distress and Comfortable
HEENT: Normocephalic, Anicteric and Moist Mucous Membranes
Cardiovascular: Regular Rhythm
Respiratory: Wheeze ( forced expiratory), Crackles ( basilar), Rhonchi ( expiratory), Non-Labored Respirations, Accessory Resp Muscle Use (n) and Stridor (n)
GI: Soft, Non Distended and Non Tender
Neurology: Awake, Alert and No Motor Deficits
Skin: Warm, Good Color, Cyanosis (n) and Jaundice (n)
Labs/Micro/Reports
Lab Data
05/07/23 05:06
05/07/23 05:06
Microbiology
05/02/23 22:22 Blood/Venous Blood Culture - Preliminary
No Growth in 4 days- Final report to follow
05/02/23 22:22 Blood/Venous Blood Culture - Preliminary
No Growth in 4 days- Final report to follow
05/04/23 08:20 Nose MRSA Screen - Final
No Methicillin Resistant Staphylococcus aureus isolated.
--- NOTE | 2023-05-07 10:50 | PN.DE.MGMTRT ---
Insulin Management
- -
05/07/2023 Diabetes Management Consult Follow up
Patient admitted with multifocal pneumonia, influenza A, with hypoxia. A1C 10.4%, cr today 1.7, eGFR 38.88. Due to cost patient has been started on 70/30 BID 15 units. Glucose is well controlled (103 to 186) on current regimen regimen.
Today patient was sleeping in chair, difficult to arouse and fell back asleep during conversation. She did say she feels confident with self administration of insulin. Instructed on 70/30 being two types of insulin, verbalized understanding.
Nursing to have patient prepare and self inject insulin with lunch and dinner.
Diabetes History
- -
Type of Diabetes: 2 requiring insulin
Pre-Admission Diabetes Regimen
05/07/23
05:06
Creatinine 1.7 H
Lab Results
Hemoglobin A1c 10.4 % (4.0-5.6) H 05/03/23 05:11
Insulin Pump Settings
IP Diabetes Regimen
05/06/23 05/06/23 05/06/23
12:00 16:46 21:51
Glucose
POC Glucose 186 H 110 H 103 H
05/07/23 05/07/23
05:06 07:38
Glucose 110 H
POC Glucose 111 H
Meal type: Dinner
Meal type: Breakfast
Amount consumed: 100%
Amount consumed: 100%
Patient Education
[2023-05-07 11:33] LABS: Glucose - Point of Care 141 mg/dl (70-99)
[2023-05-07 11:45] VITALS: BP 134/84
--- NOTE | 2023-05-07 11:49 | W.PN.HOSP.TC ---
Today's Communication/Plan
-
see A/P
Assessment / Plan
Assessment / Plan
37 y.o with multifocal pneumonia and influenza A complicated by hypoxia.�
A/P:
# Acute hypoxic respiratory insufficiency, due to influenza A infection and CAP POA
O2 weaned from 10 L to 5 L NC, cont to wean as tolerated, she is not on home O2
CT PE was ordered by night team, neg for PE
Noted low EF at 40-45%, Card consulted for possible acute CHF
# Sepsis POA, due to Influenza A infection and Multifocal pneumonia
Procalcitonin elevated at 2.35
MRSA screen negative
Continue Rocephin/azithromycin, Off vancomycin with negative MRSA screen
Cont Tamiflu, consider increasing duration for worsening respiratory symptoms
Cont bronchodilators, incentive spirometry/Acapella valve
fever has resolved and white count WNL
PT OT eval for weakness, likely no needs
Pulm on board
# New onset acute systolic CHF
Echo obtained for HTN work up and noted Mildly reduced left ventricular systolic function. EF 40-45%.
IV Lasix 40 BID per card, monitor daily weight
Card on board
# Acute kidney injury, secondary to sepsis
Creatinine today at 1.8, was 1.5 upon admission, baseline 1.1
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
Off IV fluid,
Cont IV lasix as above, trend SCr
# Essential hypertension
Hold losartan due to JOHN
Cont newly added Coreg, increased to 6.25 BID - BP and HR much improved
DC Norvasc with developing pedal edema
Secondary HTN work up initiated: TSH 4.11, renal artery US neg for GENO, UDS negative
follow renin/aldosterone levels, metanephrine and catecholamines
# Uncontrolled Diabetes with hyperglycemia
No evidence of DKA, patient has non-anion gap metabolic acidosis
Cont diabetic diet
Hemoglobin A1c 10.4, diabetes nurse practitioner on board , cont Insulin 70/30 at 15 units BID (changed from basal bolus due to cost)
continue sliding scale insulin
Hold metformin due to JOHN
# Hyponatremia - Suspect mild SIADH given acute onset of symptoms.�
Sodium today at 136, was 126 upon admission
Continue to trend
# Acute anemia superimposed on chronic anemia
Suspect acute anemia from sepsis vs dilutional from IVFs
Hemoglobin 10.5 today, was 11.8 upon admission, baseline 11.4
Monitor
# Left upper extremity edema
Suspect due to infiltrated IV
Dopplers negative for DVT
# Hyperchloremic non-anion gap metabolic acidosis
Hyperchloremia has improved
# Hypocalcemia
# Low vitamin D level
started calcium carbonate supplement, cont
Hypocalcemia has improved
25 OH vitamin D level low, started ergocalciferol 80 000 units weekly for 8 weeks then 1000 units daily thereafter
# Stunted growth
Pt informed that she had precocious puberty, was seen at [facility] for her pituitary gland (unclear detail) several years ago.
Could this have contributed to her reduced EF?
Request record from [facility], also last hospital visit from [facility] and clinic note from [facility]
Recc pt to follow up with Endo outpt
DVT ppx - HSQ
Full Code
total time spent 51 min
Anticipated Discharge: > 48 hours
Subjective/Interval History
-
Date of Service: May 07, 2023
Objective Data
-
Labs:
Laboratory Results
05/07/23
05:06
WBC 9.4
Hgb 9.6 L
Hct 27.8 L
Plt Count 263
Sodium 136
Potassium 3.7
Chloride 108 H
Carbon Dioxide 16 L
BUN 45 H
Creatinine 1.7 H
Glucose 110 H
Calcium 8.4
Vital Signs:
Vital Signs
Temp Pulse Resp BP Pulse Ox
37.2 C 95 22 134/84 95
05/07/23 11:45 05/07/23 11:45 05/07/23 11:45 05/07/23 11:45 05/07/23 11:45
I&O
05/06/23 05/07/23 05/08/23
06:59 06:59 06:59
Intake Total 1330 / 1330 1380 / 1380 250 / 250
Balance 1330 / 1330 1380 / 1380 250 / 250
Review of Systems
-
Constitutional: Reports Weakness
Respiratory: Reports Trouble Breathing (improved)
Physical Exam
-
General: Respiratory Distress, Conversant (speak in full sentences) and Other (stunted growth )
HEENT: Normocephalic, Atraumatic, Nose Appears Normal, Ears Appear Normal and Oxygen (5L NC)
Respiratory: Non Labored Respirations; Negative Wheezes or Accessory Resp Muscle Use
Cardiac: Regular Rhythm and S1/S2
GI: Soft and Nontender
Skin: Warm and Dry
Neuro: Awake and Alert
Psych: Calm and Intact Judgement/Insight
Data Reviewed
-
Diagnostic Radiology: Image personally visualized and interpreted and Report Reviewed by me
Medical Tests (Nuc Med, Echo etc): Report Reviewed by me (echo)
Labs: Labs Reviewed by me
Old Records: Requested
[2023-05-07 16:12] VITALS: BP 141/89
--- NOTE | 2023-05-07 16:19 | W.PN.CARDCBS ---
Today's Communication / Plan
-
Continue diuresis
Watch electrolytes and creatinine
Guideline directed medical therapy as able
Continue treatment of influenza/pneumonia
Wean oxygen as tolerates
Impression / Plan
-
PCP: Scheduled to be seen in the [facility]
Cardiology: None prior to admission
Impression:
Acute hypoxic respiratory insufficiency
Sepsis
Influenza/pneumonia
Multifocal CAP
Acute HFrEF
Newly diagnosed CM EF 40%
JOHN, possible CKD
DM
Diabetic retinopathy
Echo 05/05/23: EF 40-45%, mild MR, mild TR with PAP 30-35 mmHg, small pericardial effusion
Plan:
Feeling a little bit better overall. CT scan reviewed from last night. Patient's oxygen requirements down from 10 L to 5 L.
-Continue Lasix 40 mg IV BID
-Continue sodium and fluid restriction, discussed with patient
-Patient received 9 L IVFs this admission. Continue to follow creatinine in addition. Above what appears to be prior baseline.
-As noted by echo during this admission EF reduced at 40%, no previous echo for comparison. Continue Coreg 6.25 mg BID started by hospitalist attending. Would not start MILADY/ARB/aldosterone antagonist in the setting of JOHN. Also at this time would
avoid SGLT2 inhibitor. Continue to follow and eventually reassess.
-GDMT options will be limited due to lack of insurance and renal function.
-Patient has been accepted to the [facility] thanks to her sister helping with paperwork, this was done prior to admission.
-Patient should have an eventual ischemic evaluation. Eventual stress test.
-Telemetry stable ges.
-Patient came to [facility] 05/02/23 with cough and SOB and was admitted with influenza, cardiology is now consulted for an abnormal echo. Patient lives independently and has a job. Patient gets help from her sister with paying for retinal injections and
her sister also recently helped her with completing paperwork for the [facility] as patient makes too much money for Medicaid and food stamps. Patient's sister was on the phone throughout this HPI. Patient came to [facility] with cough and SOB
05/02/23 and was positive for flu. She was admitted with hypoxia and sepsis. She was also treated for multifocal PNA. Patient received a total of 9 L IVFs. Patient says that she feels better today and attributes this to improved fevers, but overnight
she was noted to have worsening hypoxia and D-dimer was elevated so she was sent for CT for PE and it was negative, but it did show B/L pleural effusions and B/L opacities. Patient went from 3 L daytime yesterday to 10 L last night. She has improved
a bit and is down to 8 L midflow now, but she is dyspneic with conversation. Patient says that in hindsight she started with pittine LE edema and orthopnea 2-3 weeks prior to admission. No h/o cardiac testing and overall has had limited medical care
in the last few years due to finances.
In 05/06/2023 talked with patient in room while her sister was on speakerphone for about 15 minutes. Reviewed admission thus far, echo findings and acute HF diagnosis.
Progress Note - [employer]
Subjective
Date of Service: May 07, 2023
Breathing is improved. She feels fatigued. She denies chest pain and palpitations.
Objective
Labs:
05/07/23 05:06
05/07/23 05:06
Labs
Hgb 9.6 g/dL (12.0-16.0) L 05/07/23 05:06
Hct 27.8 % (37.0-47.0) L 05/07/23 05:06
Plt Count 263 10^3/uL (130-400) 05/07/23 05:06
APTT 35.5 Sec (23.4-35.0) H 05/06/23 08:34
Sodium 136 mmol/L (135-145) 05/07/23 05:06
Potassium 3.7 mmol/L (3.5-5.1) 05/07/23 05:06
BUN 45 mg/dl (7-17) H 05/07/23 05:06
Creatinine 1.7 mg/dL (0.6-1.0) H 05/07/23 05:06
Glucose 110 mg/dl (70-99) H 05/07/23 05:06
Troponins
05/05/23 05/06/23 05/06/23
18:59 00:24 05:43
Troponin I 0.025 0.020 0.020
Vital Signs and I&O:
Vital Signs
Temp Pulse Resp BP Pulse Ox
97.9 F 92 22 141/89 98
05/07/23 16:12 05/07/23 16:12 05/07/23 16:12 05/07/23 16:12 05/07/23 16:12
Vital Signs
Temp Pulse Resp BP Pulse Ox
97.9 F 92 22 141/89 98
05/07/23 16:12 05/07/23 16:12 05/07/23 16:12 05/07/23 16:12 05/07/23 16:12
Intake & Output
05/05/23 05/06/23 05/07/23 05/08/23
06:59 06:59 06:59 06:59
Intake Total 2935 / 2935 1330 / 1330 1380 / 1380 250 / 250
Balance 2935 / 2935 1330 / 1330 1380 / 1380 250 / 250
Physical Exam
Physical Exam
General: Well developed, well nourished in NAD.
Neck: 8 cm JVD
Heart: Distant heart sounds CA, RRR, no murmurs, No S3, S4, no rubs.
Lungs: Decreased breath sounds at bases left greater than right
Extremities: No clubbing, cyanosis +1 edema bilaterally.
Neuro: Grossly nonfocal, awake, alert
--- NOTE | 2023-05-07 16:48 | CM ---
Diuresing, Follow lytes and Cr, wean O2 as tolerated. Patient has no insurance. May need O2 at discharge. O2 can be paid on monthly basis out of pocket. Will discuss with patient if unable to be weaned to baseline.
[2023-05-07 16:51] LABS: Glucose - Point of Care 137 mg/dl (70-99)
[2023-05-07 18:06] LABS: Aldosterone, Serum 3.4 ng/dL; Aldosterone/Renin Activ Ratio 6.9 ratio (<=25.0); Renin Activity Results 0.5 ng/mL/hr
[2023-05-07 19:21] VITALS: BP 155/91
[2023-05-07] MEDS: ROCEPHIN 1000 MG IV (21:07)
[2023-05-07] MEDS: STERILE WATER FOR INJECTION 10 ML IV (21:07)
[2023-05-07 22:34] LABS: Glucose - Point of Care 120 mg/dl (70-99)
[2023-05-07 23:23] VITALS: BP 145/88
[2023-05-07] MEDS: ZITHROMAX INFUSION 250 IV ×2 (23:24)
[2023-05-08] VITALS (7 sets, daily range): BP systolic 129–166; BP diastolic 69–96; PULSE 86; O2SAT 96; BMI 35.1
[2023-05-08 06:12] LABS: Hematocrit 26.4 % (37.0-47.0); Hemoglobin 9.2 g/dL (12.0-16.0); Mean Corp Hgb Conc. 34.8 g/dL (33.0-37.0); Mean Corpuscular Hgb 29.2 pg (27.0-31.0); Mean Corpuscular Volume 83.8 fL (81.0-99.0); Mean Platelet Volume 11.5 fL (7.4-10.4); Platelet Count 350 10^3/uL (130-400); Red Blood Cell Count 3.15 10^6/uL (4.20-5.40); Red Cell Dist. Width 14.6 % (11.5-14.5); White Blood Cell Count 10.6 10^3/uL (4.8-10.8)
[2023-05-08 06:44] LABS: Blood Urea Nitrogen 42 mg/dl (7-17); Calcium 8.3 mg/dl (8.4-10.2); Carbon Dioxide 18 mmol/L (22-30); Chloride 110 mmol/L (98-107); Estimated Creatinine Clearance 29 ml/min; Glucose 103 mg/dl (70-99); Potassium 3.6 mmol/L (3.5-5.1); Sodium 132 mmol/L (135-145); eGFR 31.99
[2023-05-08 07:19] LABS: Glucose - Point of Care 111 mg/dl (70-99)
[2023-05-08] MEDS: NOVOLOG FLEXPEN-LOW RESISTANCE SC (07:27)
--- NOTE | 2023-05-08 07:31 | PN.DE.MGMTRT ---
Insulin Management
- -
05/08/2023 Diabetes Management Follow up
Patient admitted with multifocal pneumonia, influenza A, with hypoxia. A1C 10.4%, cr today 1.7, eGFR 38.88. Due to cost patient has been started on 70/30 BID 15 units. Glucose is well controlled (110 to 141) on current regimen regimen, required
no corrective insulin yesterday. Will make no changes. At discharge NovoLIN 70/30 15 units BID should be prescribed as this is the lowest cost to patient.
Diabetes History
- -
Type of Diabetes: 2 requiring insulin
Pre-Admission Diabetes Regimen
05/08/23
05:12
Creatinine 2.0 H
Lab Results
Hemoglobin A1c 10.4 % (4.0-5.6) H 05/03/23 05:11
Insulin Pump Settings
IP Diabetes Regimen
05/07/23 05/07/23 05/07/23
07:38 11:31 16:49
Glucose
POC Glucose 111 H 141 H 137 H
05/07/23 05/08/23 05/08/23
22:27 05:12 07:18
Glucose 103 H
POC Glucose 120 H 111 H
Meal type: Dinner
Meal type: Lunch
Meal type: Breakfast
Amount consumed: 100%
Amount consumed: 100%
Amount consumed: 100%
Patient Education
--- NOTE | 2023-05-08 08:05 | W.PN.PUL.V3 ---
Today's Communication / Plan
-
Continue attempts at weaning FiO2
Continue antibiotics
Mucus clearing devices
Follow-up chest x-ray tomorrow
Outpatient pulmonary follow-up
Assessment
-
37-year-old female with a history of hypertension and diabetes presented with shortness of breath and found to have influenza and pneumonia-pulmonary consulted for shortness of breath/pneumonia/influenza 05/06/2023.
Assessment
Community-acquired pneumonia-multifocal
Influenza
Hyperglycemia
Hyponatremia
Metabolic acidosis
Mild anemia-hemoglobin 10.5-normocytic
JOHN
Conditions present prior to admission:
Hypertension.
Diabetes.
Obesity.
Stunted growth-precocious puberty
Plan
Respiratory decompensation due to influenza and multifocal community-acquired pneumonia
Continue supplemental oxygen-attempt to wean
Continue Mucinex
Nebulizers if needed-currently not bronchospastic
Decadron if becomes bronchospastic-has not needed
Follow-up chest x-ray 05/09/2023
Aspiration precautions continue
Cultures reviewed.
Finished a course of Tamiflu
Respiratory isolation per protocol
Empiric antibiotics-Rocephin and azithromycin-finite course
Follow leukocytosis
Follow pleural effusion-has not been enlarged on exam
Thoracentesis if effusions and large
Follow blood sugar
Insulin supplementation as needed
Patient had intravenous fluid resuscitation.
Diuresis as tolerated.
Monitor renal function, weight, lower extremity edema and electrolytes
Monitor hemoglobin
Transfuse if needed
DVT prophylaxis-on heparin
Nutrition
Increase activity.
Reviewed with nursing as well as hospitalist
Outpatient pulmonary follow-up
Outpatient follow-up CT chest to ensure clearing and no endobronchial obstruction
Diagnostic data:
Chest x-ray 05/02/2023-bilateral pneumonia, small left pleural effusion
CT chest 05/05/2023-no evidence for pulm embolism, widespread marked parenchymal abnormalities suggestive of pneumonia and small bilateral pleural effusions right greater than left, central lesion on the right with postobstructive process in the right
middle lobe cannot be excluded
upper extremity ultrasound 05/03/2023-no evidence for left upper extremity thrombosis
Echocardiogram 05/05/2023%EF, Mild mitral regurgitation
Subjective Data
-
Date of Service:
Date of Service: May 08, 2023
Chief Complaint: Pulmonary Follow Up and Dyspnea Follow Up
Subjective:
She feels slightly improved, FiO2 able to be weaned, still has productive cough, nasal congestion, no chest pain or abdominal pain
Review of Systems
General: Other (Per HPI)
Objective Data
Data Reviewed
Vital Signs / I&O:
Vital Signs
Temp Pulse Resp BP Pulse Ox
98.5 F 98 16 166/96 96
05/08/23 08:00 05/08/23 08:00 05/08/23 08:00 05/08/23 08:00 05/08/23 08:00
Intake and Output
05/07/23 05/08/23 05/09/23
06:59 06:59 06:59
Intake Total 1380 / 1380 2039
Balance 1380 / 1380 2039
SaO2: 96
Nasal Cannula flow liters per minute: 4
Physical Exam
General: Respiratory Distress and Comfortable
HEENT: Normocephalic, Anicteric and Moist Mucous Membranes
Cardiovascular: Regular Rhythm
Respiratory: Wheeze ( forced expiratory), Crackles ( basilar), Rhonchi ( expiratory), Non-Labored Respirations, Accessory Resp Muscle Use (n) and Stridor (n)
GI: Soft, Non Distended and Non Tender
Neurology: Awake, Alert and No Motor Deficits
Skin: Warm, Good Color, Cyanosis (n) and Jaundice (n)
Labs/Micro/Reports
Lab Data
05/08/23 05:12
05/08/23 05:12
Microbiology
05/02/23 22:22 Blood/Venous Blood Culture - Final
No Growth - Final Report
05/02/23 22:22 Blood/Venous Blood Culture - Final
No Growth - Final Report
05/04/23 08:20 Nose MRSA Screen - Final
No Methicillin Resistant Staphylococcus aureus isolated.
[2023-05-08] MEDS: COREG 6.25 MG PO ×2 (08:20→20:29)
[2023-05-08] MEDS: OSCAL 500 + D 500 MG PO ×3 (08:20→22:23)
[2023-05-08] MEDS: MUCINEX 1200 MG PO ×2 (08:20→20:29)
[2023-05-08] MEDS: HEPARIN 5000 UNITS SC ×2 (08:20→20:30)
[2023-05-08] MEDS: NOVOLOG MIX 70/30 FLEXPEN 15 UNITS SC ×2 (08:21→17:20)
[2023-05-08 11:52] LABS: Glucose - Point of Care 200 mg/dl (70-99)
--- NOTE | 2023-05-08 12:23 | W.PN.HOSP.TC ---
Today's Communication/Plan
-
see A/P
Assessment / Plan
Assessment / Plan
37 y.o with multifocal pneumonia and influenza A complicated by hypoxia.�
A/P:
# Acute hypoxic respiratory insufficiency, due to influenza A infection and CAP POA
O2 weaned from 10 L to 5 L NC, now to RA, she is not on home O2
Check walking pulse Ox prior to discharge
CT PE was ordered by night team, neg for PE
Noted low EF at 40-45%, Card consulted for possible acute CHF
check follow up CXR 05/08
# Sepsis POA, due to Influenza A infection and Multifocal pneumonia
Procalcitonin elevated at 2.35
MRSA screen negative
Continue Rocephin/azithromycin, Off vancomycin with negative MRSA screen
s/p Tamiflu 5 days
Cont bronchodilators, incentive spirometry/Acapella valve
fever has resolved and white count WNL
PT OT eval for weakness, likely no needs
Pulm on board
# New onset acute systolic CHF
Echo obtained for HTN work up and noted Mildly reduced left ventricular systolic function. EF 40-45%.
IV Lasix 40 BID stopped due to increase in SCr
Card on board
# Acute kidney injury, secondary to sepsis
Creatinine today at 2.0, was 1.5 upon admission, baseline 1.1
Hold ACCOUNT EXECUTIVE metformin/losartan
Off IV fluid,
IV Lasix 40 BID stopped due to increase in SCr
# Essential hypertension
Hold losartan due to JOHN
Cont newly added Coreg at 6.25 BID - BP and HR much improved
DC Norvasc with developing pedal edema
Secondary HTN work up initiated: TSH 4.11, renal artery US neg for GENO, UDS negative, Renin/aldosterone levels WNL
pending metanephrine and catecholamines
# Uncontrolled Diabetes with hyperglycemia
No evidence of DKA, patient has non-anion gap metabolic acidosis
Cont diabetic diet
Hemoglobin A1c 10.4, diabetes nurse practitioner on board , cont Insulin 70/30 at 15 units BID (changed from basal bolus due to cost)
continue sliding scale insulin
Hold metformin due to JOHN
# Hyponatremia - Suspect mild SIADH given acute onset of symptoms.�
Sodium today at 132, was 126 upon admission
Continue to trend
# Acute anemia superimposed on chronic anemia
Suspect acute anemia from sepsis vs dilutional from IVFs
Hemoglobin 9.2 today, was 11.8 upon admission, baseline 11.4
Monitor
# Left upper extremity edema
Suspect due to infiltrated IV
Dopplers negative for DVT
# Hyperchloremic non-anion gap metabolic acidosis
Hyperchloremia has improved
# Hypocalcemia
# Low vitamin D level
started calcium carbonate supplement, cont
Hypocalcemia has improved
25 OH vitamin D level low, started ergocalciferol 80 000 units weekly for 8 weeks then 1000 units daily thereafter
# Stunted growth
Pt informed that she had precocious puberty, was seen at [facility] for her pituitary gland (unclear detail) several years ago.
Could this have contributed to her reduced EF?
Request record from [facility], also last hospital visit from [facility] and clinic note from [facility]
Recc pt to follow up with Endo outpt
DVT ppx - HSQ
Full Code
d/w sister at bedside
d/w Pulm and Card
d/w RN
total time spent 51 min
Anticipated Discharge: Within 24 hours
Subjective/Interval History
-
Date of Service: May 08, 2023
Objective Data
-
Labs:
Laboratory Results
05/08/23
05:12
WBC 10.6
Hgb 9.2 L
Hct 26.4 L
Plt Count 350 D
Sodium 132 L
Potassium 3.6
Chloride 110 H
Carbon Dioxide 18 L
BUN 42 H
Creatinine 2.0 H
Glucose 103 H
Calcium 8.3 L
Vital Signs:
Vital Signs
Temp Pulse Resp BP Pulse Ox
37.3 C 91 16 129/69 93
05/08/23 10:47 05/08/23 10:47 05/08/23 10:47 05/08/23 10:47 05/08/23 11:49
I&O
05/07/23 05/08/23 05/09/23
06:59 06:59 06:59
Intake Total 1380 / 1380 2039
Balance 1380 / 1380 2039
Review of Systems
-
Constitutional: Reports Weakness
Respiratory: Reports Trouble Breathing (improved and much resolved)
Physical Exam
-
General: Comfortable, Conversant (speak in full sentences) and Other (stunted growth )
HEENT: Normocephalic, Atraumatic, Nose Appears Normal and Ears Appear Normal
Respiratory: Clear to Auscultation, Crackles (minimal) and Non Labored Respirations; Negative Wheezes or Accessory Resp Muscle Use
Cardiac: Regular Rhythm and S1/S2
GI: Soft and Nontender
Skin: Warm and Dry
Neuro: Awake and Alert
Psych: Calm and Intact Judgement/Insight
Data Reviewed
-
Diagnostic Radiology: Image personally visualized and interpreted and Report Reviewed by me
Medical Tests (Nuc Med, Echo etc): Report Reviewed by me (echo)
Labs: Labs Reviewed by me
Old Records: Requested
[2023-05-08] MEDS: NOVOLOG FLEXPEN-LOW RESISTANCE 2 UNITS SC (12:40)
--- NOTE | 2023-05-08 14:42 | CM ---
Patient has been weaned off O2. Currently on RA. Discharge plan of care: Home with no needs. Patient does not have insurance.
--- NOTE | 2023-05-08 16:18 | W.PN.CARDCBS ---
Today's Communication / Plan
-
No longer hypoxemic
Hold IV Lasix with creatinine of 2.0
Consider change to oral Lasix in a.m.
Possible discharge from cardiology viewpoint on 05/08
Impression / Plan
-
PCP: Scheduled to be seen in the [facility]
Cardiology: None prior to admission
Impression:
Acute hypoxic respiratory insufficiency
Sepsis
Influenza/pneumonia
Multifocal CAP
Acute HFrEF
Newly diagnosed CM EF 40%
JOHN, possible CKD
DM
Diabetic retinopathy
Echo 05/05/23: EF 40-45%, mild MR, mild TR with PAP 30-35 mmHg, small pericardial effusion
Plan:
Creatinine increased to 2.0 and Lasix was held
Of note she is no longer hypoxemic and ambulated the floors without hypoxemia
Consider change to oral Lasix on 05/08
Continue Coreg 6.25 mg BID. Would not start MILADY/ARB/aldosterone antagonist in the setting of JOHN. Also at this time would avoid SGLT2 inhibitor. Continue to follow and eventually reassess.
GDMT options will be limited due to lack of insurance and renal function.
Patient has been accepted to the [facility]
Patient should have an eventual ischemic evaluation. Eventual stress test.
Discussed with primary service
Possible discharge from cardiology viewpoint on 05/08
-Patient came to [facility] 05/02/23 with cough and SOB and was admitted with influenza, cardiology is now consulted for an abnormal echo. Patient lives independently and has a job. Patient gets help from her sister with paying for retinal injections and
her sister also recently helped her with completing paperwork for the [facility] as patient makes too much money for Medicaid and food stamps. Patient's sister was on the phone throughout this HPI. Patient came to [facility] with cough and SOB
05/02/23 and was positive for flu. She was admitted with hypoxia and sepsis. She was also treated for multifocal PNA. Patient received a total of 9 L IVFs. Patient says that she feels better today and attributes this to improved fevers, but overnight
she was noted to have worsening hypoxia and D-dimer was elevated so she was sent for CT for PE and it was negative, but it did show B/L pleural effusions and B/L opacities. Patient went from 3 L daytime yesterday to 10 L last night. She has improved
a bit and is down to 8 L midflow now, but she is dyspneic with conversation. Patient says that in hindsight she started with pittine LE edema and orthopnea 2-3 weeks prior to admission. No h/o cardiac testing and overall has had limited medical care
in the last few years due to finances.
In 05/06/2023 talked with patient in room while her sister was on speakerphone for about 15 minutes. Reviewed admission thus far, echo findings and acute HF diagnosis.
Progress Note - [employer]
Subjective
Date of Service: May 08, 2023
No complaints. On room air
Objective
Labs:
05/08/23 05:12
05/08/23 05:12
Labs
Hgb 9.2 g/dL (12.0-16.0) L 05/08/23 05:12
Hct 26.4 % (37.0-47.0) L 05/08/23 05:12
Plt Count 350 10^3/uL (130-400) D 05/08/23 05:12
APTT 35.5 Sec (23.4-35.0) H 05/06/23 08:34
Sodium 132 mmol/L (135-145) L 05/08/23 05:12
Potassium 3.6 mmol/L (3.5-5.1) 05/08/23 05:12
BUN 42 mg/dl (7-17) H 05/08/23 05:12
Creatinine 2.0 mg/dL (0.6-1.0) H 05/08/23 05:12
Glucose 103 mg/dl (70-99) H 05/08/23 05:12
Troponins
05/05/23 05/06/23 05/06/23
18:59 00:24 05:43
Troponin I 0.025 0.020 0.020
Vital Signs and I&O:
Vital Signs
Temp Pulse Resp BP Pulse Ox
98.4 F 94 16 150/92 94
05/08/23 15:20 05/08/23 15:20 05/08/23 15:20 05/08/23 15:20 05/08/23 15:20
Vital Signs
Temp Pulse Resp BP Pulse Ox
98.4 F 94 16 150/92 94
05/08/23 15:20 05/08/23 15:20 05/08/23 15:20 05/08/23 15:20 05/08/23 15:20
Intake & Output
05/06/23 05/07/23 05/08/23 05/09/23
06:59 06:59 06:59 06:59
Intake Total 1330 / 1330 1380 / 1380 2039
Balance 1330 / 1330 1380 / 1380 2039
Physical Exam
Physical Exam
General: Well developed, well nourished in NAD.
Neck: Supple, no JVD, HJR, carotids +2 B/L, no bruits bilaterally.
Heart: Non displaced PMI, RRR, no murmurs, No S3, S4, no rubs.
Lungs: Scattered rhonchi
Extremities: No clubbing, cyanosis or edema bilaterally.
Neuro: Grossly nonfocal, awake, alert and oriented x3.
[2023-05-08 16:40] LABS: Glucose - Point of Care 167 mg/dl (70-99)
[2023-05-08] MEDS: NOVOLOG FLEXPEN-LOW RESISTANCE 1 UNITS SC (17:19)
[2023-05-08] MEDS: STERILE WATER FOR INJECTION 10 ML IV (22:23)
[2023-05-08] MEDS: ROCEPHIN 1000 MG IV (22:23)
[2023-05-08] MEDS: ZITHROMAX INFUSION 250 IV (22:23)
[2023-05-08 22:42] LABS: Glucose - Point of Care 97 mg/dl (70-99)
[2023-05-09 04:05] VITALS: BP 132/79
[2023-05-09 07:15] VITALS: BP 159/97
[2023-05-09 07:20] LABS: Glucose - Point of Care 133 mg/dl (70-99)
[2023-05-09 08:30] LABS: Hematocrit 27.2 % (37.0-47.0); Hemoglobin 9.3 g/dL (12.0-16.0); Mean Corp Hgb Conc. 34.2 g/dL (33.0-37.0); Mean Corpuscular Hgb 28.8 pg (27.0-31.0); Mean Corpuscular Volume 84.2 fL (81.0-99.0); Platelet Count 456 10^3/uL (130-400); Red Blood Cell Count 3.23 10^6/uL (4.20-5.40); Red Cell Dist. Width 14.6 % (11.5-14.5); White Blood Cell Count 9.5 10^3/uL (4.8-10.8)
[2023-05-09 09:04] LABS: Blood Urea Nitrogen 45 mg/dl (7-17); Calcium 8.7 mg/dl (8.4-10.2); Carbon Dioxide 19 mmol/L (22-30); Chloride 108 mmol/L (98-107); Estimated Creatinine Clearance 33 ml/min; Glucose 139 mg/dl (70-99); Potassium 3.9 mmol/L (3.5-5.1); Sodium 135 mmol/L (135-145)
[2023-05-09] MEDS: MUCINEX 1200 MG PO (09:08)
[2023-05-09] MEDS: NOVOLOG FLEXPEN-LOW RESISTANCE SC (09:08)
[2023-05-09] MEDS: COREG 6.25 MG PO (09:08)
[2023-05-09] MEDS: OSCAL 500 + D 500 MG PO (09:09)
[2023-05-09] MEDS: HEPARIN 5000 UNITS SC (09:09)
[2023-05-09] MEDS: NOVOLOG MIX 70/30 FLEXPEN 15 UNITS SC (09:10)
[2023-05-09] MEDS: BUMEX 1 MG PO (10:51)
[2023-05-09 11:05] VITALS: BP 148/91
--- NOTE | 2023-05-09 11:14 | W.PN.CARDCBS ---
Today's Communication / Plan
-
Changed to Bumex 1 mg daily and check renal profile in 1 week
Stable cardiology status for discharge
Will arrange follow-up visit
Impression / Plan
-
PCP: Scheduled to be seen in the [facility]
Cardiology: None prior to admission
Impression:
Acute hypoxic respiratory insufficiency
Sepsis
Influenza/pneumonia
Multifocal CAP
Acute HFrEF
Newly diagnosed CM EF 40%
JOHN, possible CKD
DM
Diabetic retinopathy
Echo 05/05/23: EF 40-45%, mild MR, mild TR with PAP 30-35 mmHg, small pericardial effusion
Plan:
Creatinine had increased to 2.0 and has decreased to 1.8
Stable cardiology status for discharge
Will change Lasix to Bumex and discharged on Bumex 1 mg daily. Patient reports having had no response to Lasix in the past question
She is ambulating without hypoxemia
Would not start MILADY/ARB/aldosterone antagonist in the setting of JOHN. Consider event SGLT2 inhibitor.
GDMT options will be limited due to lack of insurance and renal function.
Patient has been accepted to the [facility]
Patient should have an eventual ischemic evaluation. Eventual stress test.
Discussed with primary service
-Patient came to [facility] 05/02/23 with cough and SOB and was admitted with influenza, cardiology is now consulted for an abnormal echo. Patient lives independently and has a job. Patient gets help from her sister with paying for retinal injections and
her sister also recently helped her with completing paperwork for the [facility] as patient makes too much money for Medicaid and food stamps. Patient's sister was on the phone throughout this HPI. Patient came to [facility] with cough and SOB
05/02/23 and was positive for flu. She was admitted with hypoxia and sepsis. She was also treated for multifocal PNA. Patient received a total of 9 L IVFs. Patient says that she feels better today and attributes this to improved fevers, but overnight
she was noted to have worsening hypoxia and D-dimer was elevated so she was sent for CT for PE and it was negative, but it did show B/L pleural effusions and B/L opacities. Patient went from 3 L daytime yesterday to 10 L last night. She has improved
a bit and is down to 8 L midflow now, but she is dyspneic with conversation. Patient says that in hindsight she started with pittine LE edema and orthopnea 2-3 weeks prior to admission. No h/o cardiac testing and overall has had limited medical care
in the last few years due to finances.
In 05/06/2023 talked with patient in room while her sister was on speakerphone for about 15 minutes. Reviewed admission thus far, echo findings and acute HF diagnosis.
Progress Note - Test Clerk
Subjective
Date of Service: May 09, 2023
No complaints.
Objective
Labs:
05/09/23 07:34
05/09/23 07:34
Labs
Hgb 9.3 g/dL (12.0-16.0) L 05/09/23 07:34
Hct 27.2 % (37.0-47.0) L 05/09/23 07:34
Plt Count 456 10^3/uL (130-400) H D 05/09/23 07:34
APTT 35.5 Sec (23.4-35.0) H 05/06/23 08:34
Sodium 135 mmol/L (135-145) 05/09/23 07:34
Potassium 3.9 mmol/L (3.5-5.1) 05/09/23 07:34
BUN 45 mg/dl (7-17) H 05/09/23 07:34
Creatinine 1.8 mg/dL (0.6-1.0) H 05/09/23 07:34
Glucose 139 mg/dl (70-99) H 05/09/23 07:34
Vital Signs and I&O:
Vital Signs
Temp Pulse Resp BP Pulse Ox
98.4 F 96 18 159/97 94
05/09/23 07:15 05/09/23 07:15 05/09/23 07:15 05/09/23 07:15 05/09/23 07:15
Vital Signs
Temp Pulse Resp BP Pulse Ox
98.4 F 96 18 159/97 94
05/09/23 07:15 05/09/23 07:15 05/09/23 07:15 05/09/23 07:15 05/09/23 07:15
Intake & Output
05/07/23 05/08/23 05/09/23 05/10/23
06:59 06:59 06:59 07:59
Intake Total 1380 / 1380 2040 / 2040 960 / 960
Balance 1380 / 1380 2040 / 2040 960 / 960
Physical Exam
Physical Exam
General: Well developed, well nourished in NAD.
Neck: Supple, no JVD, HJR, carotids +2 B/L, no bruits bilaterally.
Heart: Non displaced PMI, RRR, no murmurs, No S3, S4, no rubs.
Lungs: Scattered rhonchi at the bases
Extremities: No clubbing, cyanosis or edema bilaterally.
Neuro: Grossly nonfocal, awake, alert and oriented x3.
--- NOTE | 2023-05-09 11:49 | W.PN.HOSP.TC ---
Addendum entered and electronically signed by Kaela Doty MD 05/09/23 16:48:
Total DC time 45 minutes
Discussed with sister in person
Original Note:
Today's Communication/Plan
-
DC home today
Assessment / Plan
Assessment / Plan
37 y.o with multifocal pneumonia and influenza A complicated by hypoxia.�
A/P:
# Acute hypoxic respiratory insufficiency, due to influenza A infection and CAP POA
O2 weaned from 10 L to RA, she is not on home O2. Walking pulse ox indicated no need for home O2.
CT PE was ordered by night team, neg for PE
Noted low EF at 40-45%, Card consulted for possible acute CHF
follow up CXR 05/08 with improved Moderate bilateral pneumonia. Check repeat CXR in 4 week with PCP.
# Sepsis POA, due to Influenza A infection and Multifocal pneumonia
Procalcitonin elevated at 2.35
MRSA screen negative
Continue Rocephin/azithromycin x 7 days during hospital stay, no need for further Abx
s/p Tamiflu 5 days
Cont bronchodilators, incentive spirometry/Acapella valve
fever has resolved and white count WNL
PT OT eval for weakness, likely no needs
Pulm on board
# New onset acute systolic CHF
Echo obtained for HTN work up and noted Mildly reduced left ventricular systolic function. EF 40-45%.
IV Lasix 40 BID stopped due to increase in SCr
Discharge with oral bumex 1 mg and check BMP in 1 week with result to PCP
Card on board
# Acute kidney injury, secondary to sepsis
Creatinine today at 1.8, was 1.5 upon admission, baseline 1.1
Hold CHEF'S ASSISTANT metformin/losartan
Off IV fluid,
Discharge with oral bumex 1 mg and check BMP in 1 week with result to PCP
# Essential hypertension
Hold losartan due to JOHN
Cont newly added Coreg at 6.25 BID - BP and HR much improved
DC Norvasc with developing pedal edema
Secondary HTN work up initiated: TSH 4.11, renal artery US neg for GENO, UDS negative, Renin/aldosterone levels WNL
pending metanephrine and catecholamines
# Uncontrolled Diabetes with hyperglycemia
No evidence of DKA, patient has non-anion gap metabolic acidosis
Cont diabetic diet
Hemoglobin A1c 10.4, diabetes nurse practitioner on board , cont Insulin 70/30 at 15 units BID (changed from basal bolus due to cost)
continue sliding scale insulin
Hold metformin due to JOHN
# Hyponatremia - Suspect mild SIADH given acute onset of symptoms.�
Sodium today at 135, was 126 upon admission
Continue to trend
# Acute anemia superimposed on chronic anemia
Suspect acute anemia from sepsis vs dilutional from IVFs
Hemoglobin 9.2 today, was 11.8 upon admission, baseline 11.4
Monitor
# Left upper extremity edema
Suspect due to infiltrated IV
Dopplers negative for DVT
# Hyperchloremic non-anion gap metabolic acidosis
Hyperchloremia has improved
# Hypocalcemia
# Low vitamin D level
started calcium carbonate supplement, cont
Hypocalcemia has improved
25 OH vitamin D level low, started ergocalciferol 80 000 units weekly for 8 weeks then 1000 units daily thereafter
# Stunted growth
Pt informed that she had precocious puberty, was seen at [facility] for her pituitary gland (unclear detail) several years ago.
Could this have contributed to her reduced EF?
Request record from [facility], also last hospital visit from [facility] and clinic note from [facility]
Recc pt to follow up with Endo outpt
DVT ppx - HSQ
Full Code
d/w sister at bedside 05/07
d/w Card
d/w RN
Anticipated Discharge: Today
Subjective/Interval History
-
Date of Service: May 09, 2023
Objective Data
-
Labs:
Laboratory Results
05/09/23
07:34
WBC 9.5
Hgb 9.3 L
Hct 27.2 L
Plt Count 456 H D
Sodium 135
Potassium 3.9
Chloride 108 H
Carbon Dioxide 19 L
BUN 45 H
Creatinine 1.8 H
Glucose 139 H
Calcium 8.7
Vital Signs:
Vital Signs
Temp Pulse Resp BP Pulse Ox
36.9 C 96 18 159/97 94
05/09/23 07:15 05/09/23 07:15 05/09/23 07:15 05/09/23 07:15 05/09/23 07:15
I&O
05/08/23 05/09/23 05/10/23
06:59 06:59 07:59
Intake Total 2039 960 / 960
Balance 2039 960 / 960
Review of Systems
-
Respiratory: Reports Trouble Breathing (improved and much resolved)
Physical Exam
-
General: Comfortable, Conversant (speak in full sentences) and Other (stunted growth )
HEENT: Normocephalic, Atraumatic, Nose Appears Normal and Ears Appear Normal
Respiratory: Clear to Auscultation, Crackles (minimal) and Non Labored Respirations; Negative Wheezes or Accessory Resp Muscle Use
Cardiac: Regular Rhythm and S1/S2
GI: Soft and Nontender
Skin: Warm and Dry
Neuro: Awake and Alert
Psych: Calm and Intact Judgement/Insight
Data Reviewed
-
Diagnostic Radiology: Image personally visualized and interpreted and Report Reviewed by me
Medical Tests (Nuc Med, Echo etc): Report Reviewed by me (echo)
Labs: Labs Reviewed by me
Old Records: Requested
[2023-05-09 12:15] LABS: Glucose - Point of Care 167 mg/dl (70-99)
[2023-05-09] MEDS: NOVOLOG FLEXPEN-LOW RESISTANCE 1 UNITS SC (13:22)
--- NOTE | 2023-05-09 14:17 | CM ---
TERRANCE doll re: discharge planning.
Reviewed pt's chart, met with pt.
Discharge order is noted. Pt is aware and she stated her sister is coming to transport her hiome
--- NOTE | 2023-05-09 14:18 | CM ---
CM following re: discharge planning.
Reviewed pt's chart, met with pt.
Discharge order is noted. Pt is aware and she stated her sister is coming to transport her home. Pt reports she is independent with functional ability, no after care VN services identified.
D/C plan: home no needs. Sister to transport
--- NOTE | 2023-05-09 16:30 | W.DCSUMMARY ---
Discharge Summary
Discharge Data
Date of Admission: 05/02/23
Date of Discharge: 05/09/23
-
Pending Results: No
Hospital Course
Principal Diagnosis:
Acute hypoxic respiratory failure (resolved) due to influenza A infection and community-acquired pneumonia on admission
Acute kidney injury, likely now progressed to chronic kidney disease stage 3
New onset acute systolic heart failure
Now insulin-dependent diabetes
Uncontrolled hypertension/hypertension urgency
Resolved hyponatremia, likely due to SIADH
Hypocalcemia (resolved) with Low vitamin D level (25 OH vitamin D level < 12.8)
Chronic Diagnoses:�
Previously was bgf-zoevsnz-ekirvdaua diabetes
Hypertension
Stunted growth with precocious puberty, patient indicated she has previous pituitary abnormality, unclear details
Consultations:�
Cardiology
Pulmonary
Procedures:�
None
Clinical course:�
This is a 37-year-old female, with past medical history as stated above, who presented with shortness of breath, hypoxia and cough.
Problem 1:
Acute hypoxic respiratory failure (resolved) due to influenza A infection and community-acquired pneumonia on admission.
During her hospital stay, she was requiring oxygen support (up to 10 L mid flow), but oxygen was slowly weaned down and then off.
Her saturation including walking pulse ox prior to discharge was within normal limit.
Her CT PE was negative for PE.
Her echo noted low EF at 40-45% (see below).
She had received Rocephin/azithromycin x 7 days during her hospital stay- no need for further Abx following discharge.
She also received Tamiflu for 5 days while in the hospital.
She can continue with Mucinex and Tessalon as needed.
Her follow up CXR on 05/08 (date of discharge) showed improved Moderate bilateral pneumonia.
She can check repeat CXR in 4 week with her PCP (script provided).
Problem 2:
New onset acute systolic CHF.
Echo was obtained for HTN work up and noted Mildly reduced left ventricular systolic function. EF 40-45%.
She was treated with IV Lasix while in the hospital, and was discharged with oral Bumex 1 mg daily.
She can check BMP in 1 week with result to her PCP.
Problem 3:
Acute kidney injury (likely due to sepsis), with now progressed to chronic kidney disease stage 3.
Her creatinine was at 1.8 on the day of discharge.
Her prior to admission metformin and losartan were discontinued.
She can continue to observe her serum creatinine level with Bumex that was started for following discharge.
Problem 4:
Uncontrolled hypertension/hypertension urgency.
Her blood pressure has been relatively stable on Coreg 6.25 mg twice daily, which she can continue going forward.
Secondary HTN work up was initiated: TSH 4.11, renal artery US neg for GENO, UDS negative, Renin/aldosterone levels WNL.
Metanephrine and catecholamines levels were still pending at the time of discharge-results can be followed outpatient.
Problem 5:
Now insulin-dependent diabetes.
Her Hemoglobin A1c was at 10.4 %.
She was started with insulin and was discharged with Insulin 70/30 at 15 units BID (changed from basal bolus due to cost- she has no insurance).
Stop metformin due to CKD.
Problem 6:
Hypocalcemia (resolved) with Low vitamin D level (25 OH vitamin D level < 12.8).
She was started with ergocalciferol 80 000 units weekly (received 1 dose while in the hospital), she can continue with 7 more weeks then 1000 units daily thereafter
As for the rest of her medical problems, they were stable during her hospital stay.
Discharge Plan
-
Patient Disposition: Home (Routine Discharge)
Discharge Diagnosis/Procedures: Acute hypoxic respiratory failure (resolved) due to influenza A infection and community acquired pneumonia; hypertension; New onset acute systolic heart failure; Acute kidney injury (improved); low vitamin D level
Condition: Fair
Diet: 2 Gram Sodium, Diabetic, Carb Controlled and Restrict fluids to 48 oz
Activity: As tolerated
Driving Restrictions: As prior to admission
Blood Work: BMP in 1 week, result to your PCP
Others Tests: Chest X ray in 4 weeks with your PCP to evaluate for resolution of the bilateral pneumonia
Specialty Instructions: Weigh Daily- Call MD for wt gain/loss 3 lbs overnight/5 lbs in 1 week
Instructions: *[facility] Heart Failure Instructions
Referrals:
Mony Cooper CRNP [Specified Professional Personl] - 05/14/23 4:00 pm (You have a cardiology follow-up appointment at the Center office. Please call with questions)
NONE,* [Family Provider] - in less than 1 week
Jasbir Saenz MD [Active] - in two to four weeks (or ELECTRICAL MACHINIST Ensure pneumonia, improving and CT chest improved)
Additional Discharge Medication Instructions: Stop losartan and metformin (due to elevated creatinine)
Continue Coreg 6.25 twice daily for blood pressure and heart rate control.
Continue Bumex 1 mg (for heart failure) and check BMP in 1 week with result to your PCP.
Continue Insulin 70/30 at 15 units in the morning and at night.
Continue ergocalciferol 80 000 units weekly for 7 more weeks.
Prescriptions:
New
bumetanide 1 mg Tablet
1 mg PO DAILY Qty: 30 0RF
carvedilol 6.25 mg Tablet
6.25 mg PO BID Qty: 60 0RF
ergocalciferol (vitamin D2) 1,250 mcg (50,000 unit) Capsule
50,000 unit PO Q7D Qty: 7 0RF
insulin asp prt-insulin aspart 100 unit/mL (70-30) Insulin Pen
15 unit SC BID@0800,1800 Qty: 15 3RF
guaifenesin [Mucinex] 600 mg tablet extended release 12hr
600 mg PO Q12H PRN (Reason: Congestion) Qty: 20 0RF
benzonatate 100 mg capsule
100 mg PO BID PRN (Reason: Cough) Qty: 20 0RF
Discontinued
metformin 1,000 mg tablet
1,000 mg PO BID Qty: 60 0RF
losartan 50 mg tablet
50 mg PO DAILY Qty: 30 0RF
Discharge Orders:
Discharge Patient (As Directed); Ordered 05/09/23
Ordered By: Kaela Doty
Discharge Date and Time
Discharge Date/Time: 05/09/23 14:32
[2023-05-13 16:27] LABS: 24 Hour Urine Total Volume Random mL; Creatinine, Urine per Volume 59 mg/dL; Dopamine, Urine 88 ug/L; Dopamine/Creatinine Ratio 149 ug/g CRT (0-250); Epinephrine, Urine 2 ug/L; Epinephrine/Creatinine Ratio 3 ug/g CRT (0-20); Norepinephrine, Urine 28 ug/L; Norepinephrine/Creatinine Rat 47 ug/g CRT (0-45); Urine Collection Length Random hr
== END 2023-05-09 14:32 | disposition home or self-care (01) | DRG 871 ==
LOC: 2 NORTH 23:02
PROVIDERS: Family Medicine; ADMITTING PHYSICIAN Internal Medicine; ATTENDING PHYSICIAN Internal Medicine; CONSULT PHYSICIAN Internal Medicine Critical Care Medicine; EMERGENCY PHYSICIAN Emergency Medicine; OTHER PHYSICIAN Internal Medicine Cardiovascular Disease
DX: A41.89 Other specified sepsis (principal); I50.21 Acute systolic (congestive) heart failure; J09.X1 Influenza due to identified novel influenza A virus with pneumonia; J96.01 Acute respiratory failure with hypoxia; N17.9 Acute kidney failure, unspecified; E22.2 Syndrome of inappropriate secretion of antidiuretic hormone; E87.29 Other acidosis; I13.0 Hypertensive heart and chronic kidney disease with heart failure and stage 1 through stage 4 chronic kidney disease, or unspecified chronic kidney disease; E83.51 Hypocalcemia; I16.0 Hypertensive urgency; D64.9 Anemia, unspecified; N18.30 Chronic kidney disease, stage 3 unspecified; E66.9 Obesity, unspecified; E11.22 Type 2 diabetes mellitus with diabetic chronic kidney disease; R50.9 Fever, unspecified; E11.319 Type 2 diabetes mellitus with unspecified diabetic retinopathy without macular edema; E11.65 Type 2 diabetes mellitus with hyperglycemia; E87.8 Other disorders of electrolyte and fluid balance, not elsewhere classified; Z11.52 Encounter for screening for COVID-19; Z79.84 Long term (current) use of oral hypoglycemic drugs; Z80.1 Family history of malignant neoplasm of trachea, bronchus and lung; Z68.35 Body mass index [BMI] 35.0-35.9, adult; Z59.7 Insufficient social insurance and welfare support
CPT/HCPCS: 36600; 71046; 71275; 80048; 80053; 80202; 80306; 82010; 82088; 82306; 82384; 82805; 82962; 83036; 83605; 83735; 83835; 83880; 84145; 84244; 84443; 84484; 85025; 85027; 85379; 85730; 87040; 87070; 87502; 87811; 93005; 93306; 93971; 93975; 94640; 94669; 96365; 96375; 97116; 97162; 97166; 99291; Q9967

== ENCOUNTER → 2023-06-09 11:59 | Outpatient (REF) | payer OTHER, SELFPAY ==
[2023-06-09 13:35] LABS: Glycohemoglobin (HgbA1c) 7.6 % (4.0-5.6)
[2023-06-09 13:52] LABS: Blood Urea Nitrogen 45 mg/dl (7-17); Carbon Dioxide 19 mmol/L (22-30); Chloride 107 mmol/L (98-107); Glucose 109 mg/dl (70-99); Sodium 135 mmol/L (135-145)
[2023-06-09 13:57] LABS: Potassium 5.4 mmol/L (3.5-5.1)
[2023-06-09 13:59] LABS: NT-proBNP 6560 pg/ml
== END ==
LOC: CLINIC 11:59
PROVIDERS: ATTENDING PHYSICIAN Nurse Practitioner; FAMILY PHYSICIAN Nurse Practitioner Adult Health
DX: I50.21 Acute systolic (congestive) heart failure (principal); I10 Essential (primary) hypertension; N18.2 Chronic kidney disease, stage 2 (mild); E11.69 Type 2 diabetes mellitus with other specified complication; J90 Pleural effusion, not elsewhere classified; J18.9 Pneumonia, unspecified organism
CPT/HCPCS: 36415; 71046; 80048; 83036; 83880

== ENCOUNTER → 2023-08-20 14:00 | Outpatient (REF) | payer OTHER, SELFPAY ==
[2023-08-20 15:22] LABS: NT-proBNP 22800 pg/ml
[2023-08-20 15:27] LABS: ALT (SGPT) 18 U/L (0-35); AST (SGOT) 20 U/L (14-36); Albumin 2.9 g/dl (3.5-5.0); Alkaline Phosphatase 161 U/L (38-126); Blood Urea Nitrogen 44 mg/dl (7-17); Calcium 8.9 mg/dl (8.4-10.2); Carbon Dioxide 20 mmol/L (22-30); Chloride 108 mmol/L (98-107); Glucose 320 mg/dl (70-99); Potassium 4.9 mmol/L (3.5-5.1); Sodium 133 mmol/L (135-145); Total Bilirubin 0.4 mg/dl (0.2-1.3); Total Protein 5.4 g/dl (6.3-8.2); eGFR 30.17
[2023-08-20 15:42] LABS: Vitamin D, 25-OH*** < 12.8 ng/mL (30-80)
[2023-08-21 10:07] LABS: Glycohemoglobin (HgbA1c) 10.9 % (4.0-5.6)
== END ==
LOC: REG 14:00
PROVIDERS: ATTENDING PHYSICIAN Nurse Practitioner Acute Care; FAMILY PHYSICIAN Nurse Practitioner Adult Health
DX: R05.2 Subacute cough (principal); E11.69 Type 2 diabetes mellitus with other specified complication; E55.9 Vitamin D deficiency, unspecified; E87.5 Hyperkalemia; I50.22 Chronic systolic (congestive) heart failure
CPT/HCPCS: 36415; 71046; 80053; 82306; 83036; 83880

== ENCOUNTER → 2023-10-22 11:17 | Outpatient (REF) | payer OTHER, SELFPAY ==
[2023-10-22 12:23] LABS: Urine Albumin 3+ (Neg - Trace); Urine Bilirubin Negative (Negative); Urine Character Clear (Clear); Urine Color Straw; Urine Glucose Trace (Negative); Urine Ketone Negative (Negative); Urine Leukocyte Negative (Negative); Urine Nitrite Negative (Negative); Urine Occult Blood 3+ (Negative); Urine Urobilinogen Negative (Neg - 1+)
[2023-10-22 12:42] LABS: NT-proBNP 8740 pg/ml
[2023-10-22 12:45] LABS: ALT (SGPT) 22 U/L (0-35); AST (SGOT) 24 U/L (14-36); Albumin 3.4 g/dl (3.5-5.0); Alkaline Phosphatase 162 U/L (38-126); Blood Urea Nitrogen 67 mg/dl (7-17); Calcium 9.1 mg/dl (8.4-10.2); Carbon Dioxide 16 mmol/L (22-30); Chloride 111 mmol/L (98-107); Glucose 79 mg/dl (70-99); Potassium 4.7 mmol/L (3.5-5.1); Sodium 143 mmol/L (135-145); Total Bilirubin 0.4 mg/dl (0.2-1.3); Total Protein 6.2 g/dl (6.3-8.2); eGFR 19.54
[2023-10-22 13:00] LABS: Urine Squamous Cell 26-30 /LPF (Few)
[2023-10-22 13:01] LABS: Urine Bacteria Few (Negative); Urine Red Blood Cell 0-2 /HPF (0-2); Urine White Cell 0-2 /HPF (0-5)
[2023-10-23 10:09] LABS: Glycohemoglobin (HgbA1c) 9.3 % (4.0-5.6)
[2023-10-24 10:09] LABS: Intact PTH 76.1 pg/ml (13.6-85.8)
== END ==
LOC: CLINIC 11:17
PROVIDERS: Specialist; ATTENDING PHYSICIAN Internal Medicine Cardiovascular Disease; FAMILY PHYSICIAN Nurse Practitioner Acute Care
DX: I50.21 Acute systolic (congestive) heart failure (principal); I10 Essential (primary) hypertension
CPT/HCPCS: 36415; 80053; 81003; 81015; 83036; 83880; 83970

== ENCOUNTER 2023-11-17 02:53 | Emergency (ER) | payer OTHER, SELFPAY ==
[2023-11-17 02:55] VITALS: BP 227/138
--- NOTE | 2023-11-17 03:23 | ED.GENMED ---
Addendum entered and electronically signed by Miki Pierre DO 11/17/23 06:20:
Update prior to discharge patient feeling much better tells me it is her god child she was lifting not her child but she lives alone, encouraged her to take her blood pressure meds as prescribed follow-up with her PCP in the clinic
Original Note:
History of Present Illness
<Farnaz Cabrera DO, Resident - Last Filed: 11/17/23 04:41>
General
Chief Complaint: Back Pain
Source: patient
Exam Limitations: clinical condition
Time Seen by Provider: 11/17/23 03:04
Nursing documentation reviewed up to this point in time: agreed with
History of Present Illness
History of Present Illness:
Ms. Flora Pfeiffer is a 38yo F pmh CHF, HTN, stage 3 CKD, IDDM, precocious puberty (pituitary abnormality) presenting to the ED for mid back pain. She first had this pain two days ago that started while sitting at a desk and went to another ED.
She received pain medication, but did not receive any imaging. The pain started again today as she was preparing to fall asleep. The pain is a sharp 10/10 over her mid-thoracic spine, and radiates b/l horizontally across the back. She says it feels
like her back is 'having contractions.' She also endorses some L shoulder pain, and a 'hardness' at the base of her spine. She denies weakness, numbness, saddle anesthesia, incontinence, and weight loss. She denies hyde, cp, palpitations, n/v/d,
fevers, chills, SOB. She denies any hx of trauma.
She reports that she picks up her child, who is 30 lbs.
Past History
<Farnaz Cabrera DO, Resident - Last Filed: 11/17/23 04:41>
Past History
ED Past Medical History: CHF, HTN, IDDM and Renal failure (stage 3 ckd)
ED Past Surgical History: Tonsilectomy
Social History
Tobacco: Non-smoker
Alcohol: None
Drug: None
Review of Systems
<Farnaz Cabrera DO, Resident - Last Filed: 11/17/23 04:41>
Review of Systems
Allergies reviewed?: Yes
All Other Systems: ROS reviewed and negative except as documented in HPI and ROS
Phy Exam
<Farnaz Cabrera DO, Resident - Last Filed: 11/17/23 04:41>
Physical Exam
Physical Exam:
Limited at this time due to extreme pt pain with any movement.
Structural exam:
Cervical: suboccipital mm hypertonicity b/l
Upper extremities: hypertonicity, and tenderness at insertion of L levator scapulae
Thoracic: paraspinal mm hypertonicity R>L, boggy paraspinal mm on R
Lumbar: L5 NSRRL
Sacrum: tenderness over L sacral sulcus, L on L sacral torsion
General Physical Exam
General Presentation: severe distress
General age: appears older than age
General Skin: warm and dry
General Mental: tearful
General Hydration: appears well hydrated
Cardiovascular Exam
Cardiovascular Exam: no edema, no gallop, no murmur and tachycardia
Heart Sounds: normal
Pulmonary Exam
Pulmonary Exam: lungs clear, no rales, no rhonchi, no wheezing, no cough and accessory muscle use
Oxygen Status: room air
Respirations: moderate effort
Neurological Exam
Neurological Exam: alert and oriented x3
Musculoskeletal Exam
Musculoskeletal Exam: neck pain, back pain and back tenderness
Course
<Farnaz Cabrera DO, Resident - Last Filed: 11/17/23 04:41>
Orders/Labs/Results
Orders:
Orders
11/17/23 03:18
HYDROmorphone [Dilaudid] 1 mg IV NOW STA
11/17/23 03:21
CR Chest - 2 Views Urgent
Comment:
Reason For Exam: mid thoracic back pain
11/17/23 03:52
Complete Blood Count/With Diff Urgent
Comprehensive Metabolic Panel Urgent
Abnormal Lab Results
11/17/23
03:52
Hct 34.6 L %
(37.0-47.0)
Chloride 110 H mmol/L
(98-107)
Carbon Dioxide 15 L mmol/L
(22-30)
BUN 57 H mg/dl
(7-17)
Creatinine 3.0 H mg/dL
(0.6-1.0)
Glucose 245 H mg/dl
(70-99)
Alkaline Phosphatase 177 H U/L
(38-126)
Total Protein 6.0 L g/dl
(6.3-8.2)
Albumin 3.4 L g/dl
(3.5-5.0)
11/17/23 03:52
11/17/23 03:52
Vital Signs
Initial and Last Documented VS:
Initial Vital Signs
Temp Pulse Resp BP Pulse Ox
99.9 F 110 18 227/138 95
11/17/23 02:55 11/17/23 02:55 11/17/23 02:55 11/17/23 02:55 11/17/23 02:55
Last Documented Vital Signs
Temp Pulse Resp BP Pulse Ox
99.9 F 89 19 161/92 95
11/17/23 02:55 11/17/23 05:21 11/17/23 05:21 11/17/23 05:21 11/17/23 05:21
Devynlt;Miki Pierre, DO - Last Filed: 11/17/23 05:48>
Orders/Labs/Results
Orders:
Orders
11/17/23 03:18
HYDROmorphone [Dilaudid] 1 mg IV NOW STA
11/17/23 03:21
CR Chest - 2 Views Urgent
Comment:
Reason For Exam: mid thoracic back pain
11/17/23 03:52
Complete Blood Count/With Diff Urgent
Comprehensive Metabolic Panel Urgent
Abnormal Lab Results
11/17/23
03:52
Hct 34.6 L %
(37.0-47.0)
Chloride 110 H mmol/L
(98-107)
Carbon Dioxide 15 L mmol/L
(22-30)
BUN 57 H mg/dl
(7-17)
Creatinine 3.0 H mg/dL
(0.6-1.0)
Glucose 245 H mg/dl
(70-99)
Alkaline Phosphatase 177 H U/L
(38-126)
Total Protein 6.0 L g/dl
(6.3-8.2)
Albumin 3.4 L g/dl
(3.5-5.0)
11/17/23 03:52
11/17/23 03:52
Vital Signs
Initial and Last Documented VS:
Initial Vital Signs
Temp Pulse Resp BP Pulse Ox
99.9 F 110 18 227/138 95
11/17/23 02:55 11/17/23 02:55 11/17/23 02:55 11/17/23 02:55 11/17/23 02:55
Last Documented Vital Signs
Temp Pulse Resp BP Pulse Ox
99.9 F 89 19 161/92 95
11/17/23 02:55 11/17/23 05:21 11/17/23 05:21 11/17/23 05:21 11/17/23 05:21
<Farnaz Cabrera DO, Resident - Last Filed: 11/17/23 04:41>
MDM/Problems Addressed
Differential Diagnosis Includes:
spinous process fracture, back muscle spasm, thoracic dissection
Chronic conditions affecting care: DM and HTN
<Miki Pierre DO - Last Filed: 11/17/23 05:48>
*Critical Care Note
Total Time (30-74mins, 75-104mins- exclusive of procedures): Not Applicable
<Miki Pierre DO - Last Filed: 11/17/23 05:48>
Update Note
Update Note:
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
6:45 AM patient feeling better blood pressure much closer to normal
ED Attending Note
<Farnaz Cabrera DO, Resident - Last Filed: 11/17/23 04:41>
-
Portions of this chart may have been created with voice recognition software.� Occasional wrong word or��sound alike� substitutions may have occurred due to the inherent limitations of voice recognition software.
<Miki Pierre DO - Last Filed: 11/17/23 05:48>
ED Attending Note
Patient seen and examined by attending physician: Yes
I performed a history and physical exam of patient and discussed management with resident, I reviewed resident's note and agree with documented findings and plan of care.: Yes
ED Attending Note:
Seen with resident examined independently 38-year-old female presents with upper back pain, does have a 30 pound toddler she lifts, seen at [facility] recently had some pain meds no imaging she has history of hypertension renal insufficiency has been
off her meds for few days, looks uncomfortable here, blood pressure way up unclear if this is due to pain baseline high blood pressure or combination will try to get her pain under control check chest x-ray electrolytes
Discharge Plan
Departure
Patient Disposition: Home (Routine Discharge)
Date of Disposition: 11/17/23
Time of Disposition: 05:47
Patient with high blood pressure during this ER visit?: Yes
Condition: Good
Discharge Problem:
Back pain
Instructions: Back Exercises, Back Stretches on Floor, Exercises for Upper Back Pain
Prescriptions:
New
oxycodone-acetaminophen [Percocet] 5-325 mg tablet
1 tab PO Q6HPRN PRN (Reason: pain) Qty: 10 0RF
No Action
bumetanide 1 mg Tablet
1 mg PO DAILY Qty: 30 0RF
carvedilol 6.25 mg Tablet
6.25 mg PO BID Qty: 60 0RF
ergocalciferol (vitamin D2) 1,250 mcg (50,000 unit) Capsule
50,000 unit PO Q7D Qty: 7 0RF
insulin asp prt-insulin aspart 100 unit/mL (70-30) Insulin Pen
15 unit SC BID@0800,1800 Qty: 15 3RF
guaifenesin [Mucinex] 600 mg tablet extended release 12hr
600 mg PO Q12H PRN (Reason: Congestion) Qty: 20 0RF
benzonatate 100 mg capsule
100 mg PO BID PRN (Reason: Cough) Qty: 20 0RF
Referrals:
PRIVATE,PHYSICIAN [Family Provider] -
Interventions
Interventions:
*Risk Screen - Suicide Last Done: 11/17/23 02:55
*General Assessment Last Done: 11/17/23 02:55
*Neglect/Abuse Screening Last Done: 11/17/23 02:55
ED-Musculoskeletal Assessment Last Done: 11/17/23 03:56
Discharge Date and Time
Print Language: BULGARIAN
[2023-11-17] MEDS: DILAUDID 1 MG IV (03:50)
[2023-11-17 04:05] LABS: % Eosinophils 4.8 % (0-6); % Immature Granulocytes 0.4 % (0-0.5); % Lymphocytes 28.6 % (20.5-51.1); % Monocytes 4.8 % (1.7-9.3); % Neutrophils 59.4 % (42.2-75.2); Absolute Basophils 0.2 10^3/uL (0-0.2); Absolute Eosinophils 0.5 10^3/uL (0-0.7); Absolute Lymphocytes 2.8 10^3/uL (1.2-3.4); Absolute Monocytes 0.5 10^3/uL (0.1-0.6); Absolute Neutrophils 5.7 10^3/uL (1.4-6.5); Hematocrit 34.6 % (37.0-47.0); Mean Corp Hgb Conc. 34.7 g/dL (33.0-37.0); Mean Corpuscular Hgb 28.2 pg (27.0-31.0); Mean Corpuscular Volume 81.4 fL (81.0-99.0); Mean Platelet Volume 10.1 fL (7.4-10.4); Nucleated Red Blood Cells % 0 %; Platelet Count 231 10^3/uL (130-400); Red Blood Cell Count 4.25 10^6/uL (4.20-5.40); Red Cell Dist. Width 14.4 % (11.5-14.5); White Blood Cell Count 9.6 10^3/uL (4.8-10.8)
[2023-11-17 04:20] LABS: ALT (SGPT) 25 U/L (0-35); AST (SGOT) 25 U/L (14-36); Albumin 3.4 g/dl (3.5-5.0); Alkaline Phosphatase 177 U/L (38-126); Blood Urea Nitrogen 57 mg/dl (7-17); Calcium 8.8 mg/dl (8.4-10.2); Carbon Dioxide 15 mmol/L (22-30); Chloride 110 mmol/L (98-107); Glucose 245 mg/dl (70-99); Sodium 138 mmol/L (135-145); Total Bilirubin 0.7 mg/dl (0.2-1.3); eGFR 19.54
[2023-11-17 05:21] VITALS: BP 161/92
== END 2023-11-17 06:30 | disposition home or self-care (01) ==
LOC: EMR 02:53
PROVIDERS: EMERGENCY PHYSICIAN Emergency Medicine
DX: M54.6 Pain in thoracic spine (principal); M25.512 Pain in left shoulder; I13.0 Hypertensive heart and chronic kidney disease with heart failure and stage 1 through stage 4 chronic kidney disease, or unspecified chronic kidney disease; I50.9 Heart failure, unspecified; N18.30 Chronic kidney disease, stage 3 unspecified; E11.22 Type 2 diabetes mellitus with diabetic chronic kidney disease; E28.2 Polycystic ovarian syndrome; Z79.4 Long term (current) use of insulin
CPT/HCPCS: 99284; 96374; 71046; 80053; 85025

== ENCOUNTER 2023-12-03 19:09 | Inpatient (IN) | payer OTHER, SELFPAY ==
[2023-12-03] VITALS (12 sets, daily range): BP systolic 138–210; BP diastolic 82–140; BMI 34.3
--- NOTE | 2023-12-03 15:47 | ED.GENMED ---
History of Present Illness
General
Chief Complaint: Blood Pressure Problem
Source: patient
Exam Limitations: none
Time Seen by Provider: 12/03/23 15:29
History of Present Illness
History of Present Illness:
38-year-old female sent over by the cardiology office for significant hypertension. Only physical complaint is mild bilateral intermittent headache but she gets this frequently. Patient stopped all of her medications 2 weeks ago. It was not for
financial reasons. She could not get to the pharmacy. She did however get her meds today but has not taken them yet. She denies chest pain shortness of breath or other complaints. Leg edema is stable and chronic for the patient
Past History
Past History
ED Past Medical History: CHF, HTN, IDDM and Renal failure (stage 3 ckd)
ED Past Surgical History: Tonsilectomy
Social History
Tobacco: Non-smoker
Alcohol: None
Drug: None
Review of Systems
Review of Systems
All Other Systems: Not applicable
Constitutional: Denies fever
Cardiac: Reports no symptoms
Phy Exam
Physical Exam
Physical Exam:
GENERAL: Alert and oriented in no apparent distress
EYE: Orbits normal.
NECK: Supple
ENT: Pharynx without erythema
CARDIAC: Borderline tachycardic and regular
LUNGS: No respiratory distress. Normal pulse ox. A few crackles in the left base
ABDOMEN: Soft, without focal tenderness or distention
NEUROLOGICAL: Alert and oriented , grossly non-focal
SKIN: Warm and dry, no rash or lesion, no discoloration, skin intact.
MUSCULOSKELETAL: Mild bilateral pitting edema good color.
PSYCH: Normal and appropriate interaction.
Course
Orders/Labs/Results
Orders:
Orders
12/03/23 15:15
EKG [Electrocardiogram (*1)] Urgent
Reason for Study: Hypertension, Benign
EKG- Treatment ONCE
12/03/23 15:43
Cardiac Monitoring- Treatment ONCE
IV Insert/Care/Rem.- Treatment PRN
CR Chest - 2 Views Urgent
Comment:
Reason For Exam: Hypertensive urgency
Pulse Ox/cont/shift [RESP] Stat
Quantity: 1
12/03/23 15:44
Lisinopril [Zestril] 10 mg PO NOW STA
12/03/23 15:46
Amlodipine [Norvasc] 10 mg PO NOW STA
12/03/23 15:48
Test Result ONCE
12/03/23 16:48
Bumetanide [Bumex] 1 mg PO NOW STA
Carvedilol [Coreg] 25 mg PO NOW STA
12/03/23 16:53
Acetaminophen [Tylenol] 650 mg .ROUTE .STK-MED ONE
12/03/23 16:57
Acetaminophen [Tylenol] 650 mg PO NOW STA
12/03/23 17:14
B-Hydroxybutyrate Urgent
Comment: ADDON
Complete Blood Count/With Diff Urgent
Comprehensive Metabolic Panel Urgent
HCG, Serum Qualitative Screen Urgent
NT-proBNP Urgent
Troponin I Urgent
12/03/23 17:55
Nitroglycerin 100 mg/250 ml [Nitroglycerin Premix] 100 mg in 250 ml IV NOW
Initial dose in mcg/min, then titrate:: 5
Titrate to keep:: SBP < 160 mmHg
Titrate by mcg/min:: 5 mcg/min, may increase by 10 mcg/min if dose > 20 mcg/min
Frequency of titrations (minutes):: every 3-5 minutes
Maximum dose in mcg/min:: 200
Begin to taper infusion when:: Remained at goal for 2hrs
Taper by mcg/min:: 5 mcg/min
Frequency of taper (minutes) if patient maintains goal:: 30
Taper to off?: Yes
If infusion off & no longer maintaining goal:: Contact Provider
12/03/23 18:03
Add On- LAB Urgent
Tests Added?: beta hydroxybutrate
12/03/23 18:32
Admit/Transfer Patient As Directed
Co-Sign Provider:
Level of Care: Inpatient admission
Assign to:: IMU- Intermediate Care
Physician / Group: Tiago
Diagnosis: HTN emergency
Reason for Hospitalization: see progress note
Expected length of stay greater than two midnights?: Yes
ELOS- Estimated Length of Stay in days: 3
I certify the patient meets the requirements for IP care: Yes
PRN Pain Medication Management As Directed
May give lesser potent ordered pain med per pt: Yes
preference::
Protocol:: Medication orders for pain may be administered in a
manner that supports deferring to patient preference
when the pt is:
- Requesting an ordered lesser potent pain medication.
Least to most potent pain medications are defined
as: acetaminophen < NSAID < tramadol < opioids
(morphine, oxycodone, hydromorphone).
- Requesting a lesser dose of the same medication IF
ORDERED.
- Requesting a less intrusive route of administration
if both routes are prescribed by the provider (PO <
IV).
12/03/23 18:34
Code Status As Directed
Resuscitation Status: Full Code
Abnormal Lab Results
12/03/23
17:14
RDW 16.0 H %
(11.5-14.5)
Potassium 5.2 H mmol/L
(3.5-5.1)
Chloride 112 H mmol/L
(98-107)
Carbon Dioxide 12 L* mmol/L
(22-30)
BUN 47 H mg/dl
(7-17)
Creatinine 2.9 H mg/dL
(0.6-1.0)
Glucose 335 H mg/dl
(70-99)
Calcium 8.1 L mg/dl
(8.4-10.2)
Alkaline Phosphatase 147 H U/L
(38-126)
Total Protein 5.9 L g/dl
(6.3-8.2)
Albumin 3.2 L g/dl
(3.5-5.0)
B-Hydroxybutyrate 0.34 H mmol/L
(0.02-0.27)
12/03/23 17:14
12/03/23 17:14
Vital Signs
Initial and Last Documented VS:
Initial Vital Signs
Temp Pulse Resp BP Pulse Ox
98.1 F 116 16 208/140 98
12/03/23 15:17 12/03/23 15:17 12/03/23 15:17 12/03/23 15:17 12/03/23 15:17
Last Documented Vital Signs
Temp Pulse Resp BP Pulse Ox
98.1 F 88 20 183/108 98
12/03/23 15:17 12/03/23 18:15 12/03/23 18:15 12/03/23 18:00 12/03/23 15:17
MDM/Problems Addressed
Differential Diagnosis Includes:
Patient here for significant hypertension/noncompliance. She does have her medications at home now however. She has no specific complaints. She may be in a touch of heart failure but nothing significant. Workup in progress. We will check her
creatinine check proBNP. Check chest x-ray. Will also give her her regular medications which include amlodipine 10 mg daily, Bumex 1 mg although we will give it IV. Lisinopril 10 mg daily and carvedilol 25 mg twice daily.
*Radiology
Radiology exam reviewed: radiology read reviewed (CHF)
*Pulse Oximetry
Patient hypoxic: no
*EKG
Interpreted by ED Provider?: Yes
Interpretation: abnormal
Comparison EKG: changes noted
Heart Rate: 111
Rate: tachycardiac
Rhythm: sinus
[place]: normal axis
Interval: normal interval
Ischemia: non-specific ST changes
*Instructor Warper Interpretation
Rate: tachycardiac
Interpretation: abnormal
Heart Rate: 104
*Critical Care Note
Total Time (30-74mins, 75-104mins- exclusive of procedures): 45
Data Reviewed
Review of Other/Old Records Reveals: Labs, Records, Testing and Discharge Summary
ED Attending Note
-
Portions of this chart may have been created with voice recognition software.� Occasional wrong word or��sound alike� substitutions may have occurred due to the inherent limitations of voice recognition software.
Discharge Plan
Departure
Patient Disposition: Admit
Date of Disposition: 12/03/23
Time of Disposition: 18:04
Presentation/result/management discussed w/ accepting MD/DO: Hospitalist
Discharge Problem:
Hypertensive emergency, CHF, Chronic renal disease
Prescriptions:
No Action
carvedilol 6.25 mg Tablet
6.25 mg PO BID Qty: 60 0RF
atorvastatin 40 mg Tablet
40 mg PO QPM
clopidogrel 75 mg Tablet
75 mg PO DAILY
aspirin 81 mg Tablet,Delayed Release (Dr/Ec)
81 mg PO DAILY
amlodipine 10 mg Tablet
10 mg PO DAILY
lisinopril 10 mg Tablet
10 mg PO DAILY
Novolin 70-30 FlexPen U-100 100 unit/mL (70-30) Insulin Pen
16 unit SC BID
bumetanide 1 mg tablet
1 mg PO BID
Referrals:
UNKNOWN - PT DOES,NOT KNOW [Family Provider] -
Interventions
Interventions:
*Risk Screen - Suicide Last Done: 12/03/23 15:17
*General Assessment Last Done: 12/03/23 17:21
*Neglect/Abuse Screening Last Done: 12/03/23 15:17
*ED COVID-19 Vaccine History Last Done: 12/03/23 17:21
ED- Cardiac Assessment Last Done: 12/03/23 17:21
ED- Neurological Assessment Last Done: 12/03/23 17:21
ED- Pulmonary Assessment Last Done: 12/03/23 17:21
Discharge Date and Time
Print Language: MONGOLIAN
[2023-12-03] MEDS: ZESTRIL 10 MG PO (16:42)
[2023-12-03] MEDS: NORVASC 10 MG PO (16:42)
[2023-12-03] MEDS: TYLENOL 650 MG PO ×2 (16:58→23:30)
[2023-12-03] MEDS: BUMEX 1 MG PO ×2 (17:10→21:40)
[2023-12-03] MEDS: COREG 25 MG PO (17:11)
[2023-12-03 17:39] LABS: % Basophils 1.9 % (0-2); % Eosinophils 0.9 % (0-6); % Immature Granulocytes 0.3 % (0-0.5); % Lymphocytes 24.1 % (20.5-51.1); % Monocytes 2.5 % (1.7-9.3); % Neutrophils 70.3 % (42.2-75.2); Absolute Basophils 0.2 10^3/uL (0-0.2); Absolute Eosinophils 0.1 10^3/uL (0-0.7); Absolute Lymphocytes 2.1 10^3/uL (1.2-3.4); Absolute Monocytes 0.2 10^3/uL (0.1-0.6); Absolute Neutrophils 6.2 10^3/uL (1.4-6.5); Hematocrit 38.2 % (37.0-47.0); Hemoglobin 13.2 g/dL (12.0-16.0); Mean Corp Hgb Conc. 34.6 g/dL (33.0-37.0); Mean Corpuscular Hgb 28.7 pg (27.0-31.0); Mean Platelet Volume 10.3 fL (7.4-10.4); Nucleated Red Blood Cells % 0 %; Platelet Count 277 10^3/uL (130-400); White Blood Cell Count 8.8 10^3/uL (4.8-10.8)
[2023-12-03 17:50] LABS: ALT (SGPT) 18 U/L (0-35); AST (SGOT) 22 U/L (14-36); Albumin 3.2 g/dl (3.5-5.0); Alkaline Phosphatase 147 U/L (38-126); Blood Urea Nitrogen 47 mg/dl (7-17); Calcium 8.1 mg/dl (8.4-10.2); Carbon Dioxide 12 mmol/L (22-30); Chloride 112 mmol/L (98-107); Glucose 335 mg/dl (70-99); Potassium 5.2 mmol/L (3.5-5.1); Sodium 136 mmol/L (135-145); Total Bilirubin 0.6 mg/dl (0.2-1.3); Total Protein 5.9 g/dl (6.3-8.2); eGFR 20.35
[2023-12-03 17:54] LABS: NT-proBNP > 27000 pg/ml; Troponin I 0.033 ng/ml
[2023-12-03 18:00] LABS: HCG, Serum Qualitative Screen Negative
[2023-12-03 18:36] LABS: B-Hydroxybutyrate 0.34 mmol/L (0.02-0.27)
--- NOTE | 2023-12-03 18:38 | HPS.HSE ---
Family Physician
-
Family Physician: NOT KNOW UNKNOWN - PT DOES
Chief Complaint
-
Uncontrolled blood pressure
History of Present Illness
Patient with history of diabetes mellitus on insulin, heart failure, hypertension was referred to ER from cardiology office for significant hypertension.
She stopped taking all her medication not for financial reasons but she could not get to pharmacy. She apparently could get all her medicine today but has not taken them yet.
Her blood pressure systolic was more than 200s and diastolic was 114 admission.
Apart from lower extremity edema she is voicing no specific complaints. Lower extremity edema may be little more prominent. She did not take her diuretics. Denies any exertional shortness of breath or chest pain currently. She gets sinus
headache and she took a Tylenol today at home. No headache currently. Denies any visual disturbances.
She also takes NPH 7030 she says normally of 16 units twice daily but she cut it down herself to 14 units because of low blood sugars in the evening. Again she has not taken her insulin for 2 weeks now. She denies any nausea vomiting. Denies any
abdominal pain.
She is chronically disease and sees Dr. Mcgowan. When I mention her creatinine is 2.9 she said that this at her baseline, in fact bit better compared to recent.
Medical History
Past Medical History
Past Medical History: Reports CHF, HTN and Renal Failure
Past Surgical History: Reports Tonsilectomy
Social History
Tobacco: Non-smoker
Alcohol: None
Drug: None
Living: Alone
Employment: Employed
Family History
Family History: Not pertinent
Allergies / Home Medications
Allergies reflects when Allergies were last updated in [facility].
Home Medications with original date entered in [facility]
Allergy/Medication List:
Allergies
Allergy/AdvReac Type Severity Reaction Status Date / Time
No Known Allergies Allergy Verified 12/03/23 15:19
Home Medications
carvedilol 6.25 mg tablet 6.25 mg PO BID #60 tabs 05/09/23
amlodipine 10 mg tablet 10 mg PO DAILY 12/03/23
aspirin 81 mg tablet,delayed release 81 mg PO DAILY 12/03/23
atorvastatin 40 mg tablet 40 mg PO QPM 12/03/23
bumetanide 1 mg tablet 1 mg PO BID 12/03/23
clopidogrel 75 mg tablet 75 mg PO DAILY 12/03/23
insulin NPH-regular 70-30 U-100 insulin 100 unit/mL subcutaneous pen (Novolin 70-30 FlexPen U-100 Insulin) 16 unit SC BID 12/03/23
lisinopril 10 mg tablet 10 mg PO DAILY 12/03/23
Review of Systems
-
A 12 point ROS was completed and negative except as noted: Yes
Physical Exam
Vital Signs
Vital Signs
Temp Pulse Resp BP Pulse Ox
98.1 F 88 20 183/108 98
12/03/23 15:17 12/03/23 18:15 12/03/23 18:15 12/03/23 18:00 12/03/23 15:17
Physical Exam
General: Comfortable
HEENT: Moist mucous membranes
Respiratory: Clear
Cardiac: S1/S2 and Regular Rhythm; No Murmur or JVD
GI: Soft, Non Tender, Non Distended and Normal Bowel Sounds
Musculoskeletal: No No Edema (Left lower extremity edema 1+)
Neuro: AO x 3 and Nonfocal/grossly intact
Psych: Calm; No Confused
Laboratory Results
-
12/03/23 17:14
12/03/23 17:14
Laboratory Results
Total Bilirubin 0.6 mg/dl (0.2-1.3) 12/03/23 17:14
AST 22 U/L (14-36) 12/03/23 17:14
ALT 18 U/L (0-35) 12/03/23 17:14
Alkaline Phosphatase 147 U/L (38-126) H 12/03/23 17:14
Troponin I 0.033 ng/ml 12/03/23 17:14
Data Reviewed
-
Diagnostic Radiology: Report Reviewed by me (Chest x-ray)
Lab Data: Labs Reviewed by me
Impression/Plan
-
Hypertensive emergency-patient comes with uncontrolled hypertension due to noncompliance with the medication. She has no associated mild heart failure with radiologically and biochemically. She also has worsening of her renal function compared to
spring this year. Admit to IMU. Continue with IV nitroglycerin initiated in the ER. Patient received her regular antihypertensive due for this evening in the ER. Wean nitroglycerin and as needed.
Acute heart failure with midrange EF-patient has lower extremity edema but no other clinical symptoms. Her BNP is more than 27,000 which could be function of chronic kidney disease but also has increased pulm vasculature on the chest x-ray all
concerning for CHF decompensation. Last echo 05/2023 showed EF of 40 to 45%. Clinically not in any distress. Oxygenating okay. Patient did receive IV Bumex in the ER. Continue with her home dose of Lasix and follow her symptomatology.
Chronic kidney disease stage IV. Creatinine is 2.9 which has been the case for the last couple of months. Compared to spring creatinine has worsened. Control the blood pressure. Consult to nephrology in AM.
Metabolic acidosis-normal anion gap-suspect more renal failure related than DKA. Start on sodium bicarbonate tablets.
Diabetes mellitus on insulin-again noncompliant. Hyperglycemia noted. No clinical symptoms of DKA-no GI symptoms or nausea vomiting or abdominal pain. Feels hungry. Anion gap normal. Continue with home dose of insulin and follow blood sugars
closely.
Patient known dual antiplatelet agents-denies any heart disease or stents in the heart. Will review with cardiology in AM.
Full code.
Portions of this chart may have been created with voice recognition software. Occasional wrong word or 'sound alike' substitutions may have occurred due to the inherent limitations of voice recognition software.
[2023-12-03] MEDS: NITROGLYCERIN PREMIX 250 IV (18:48)
[2023-12-03 20:36] LABS: Glucose - Point of Care 351 mg/dl (70-99)
[2023-12-03] MEDS: SODIUM BICARBONATE 650 MG PO (21:40)
[2023-12-03] MEDS: NOVOLOG MIX 70/30 FLEXPEN 16 UNITS SC (21:41)
--- NOTE | 2023-12-03 22:39 | PTCARENOTE ---
received patient from ED. Patient is Ax3 with lower leg pitting edema. Patients BP on admission was 144/86 and on nitro drip at 5 mcg/min. Patient refused heparin shot. Educated patient on bleeding precautions and importance of heparin shot but
patient still refused. Patient resting in bed with call crews in reach.
[2023-12-03 23:39] LABS: Glucose - Point of Care 354 mg/dl (70-99)
[2023-12-04] VITALS (14 sets, daily range): BP systolic 74–161; BP diastolic 56–95; BMI 34.3
[2023-12-04] MEDS: NOVOLOG FLEXPEN 4 UNITS SC (00:34)
[2023-12-04 04:56] LABS: Blood Urea Nitrogen 49 mg/dl (7-17); Calcium 7.9 mg/dl (8.4-10.2); Carbon Dioxide 11 mmol/L (22-30); Chloride 113 mmol/L (98-107); Estimated Creatinine Clearance 19 ml/min; Glucose 217 mg/dl (70-99); Potassium 4.8 mmol/L (3.5-5.1); Sodium 133 mmol/L (135-145); eGFR 19.54
--- NOTE | 2023-12-04 05:08 | W.PN.UPDATE ---
Update Note
Progress Note Update
this am Ca 7.9 corrected calcium 8.1 repleted as needed.
Carbon dioxide 11, sodium bicarb 50 meq one time IV ordered.
[2023-12-04] MEDS: CALCIUM GLUCONATE 100 IV (05:41)
[2023-12-04] MEDS: SODIUM BICARBONATE 50 MEQ IV (05:41)
[2023-12-04 07:19] LABS: Glucose - Point of Care 205 mg/dl (70-99)
[2023-12-04] MEDS: NOVOLOG FLEXPEN-LOW RESISTANCE 2 UNITS SC (08:06)
[2023-12-04] MEDS: ASPIR LOW (ENTERIC COATED) 81 MG PO (08:07)
[2023-12-04] MEDS: SODIUM BICARBONATE 650 MG PO ×3 (08:07→21:18)
[2023-12-04] MEDS: ZESTRIL 10 MG PO (08:07)
[2023-12-04] MEDS: NORVASC 10 MG PO (08:08)
[2023-12-04] MEDS: COREG 6.25 MG PO ×2 (08:08→20:01)
[2023-12-04] MEDS: PLAVIX 75 MG PO (08:08)
[2023-12-04] MEDS: NOVOLOG MIX 70/30 FLEXPEN 16 UNITS SC ×2 (08:09→17:25)
[2023-12-04 08:50] LABS: Glycohemoglobin (HgbA1c) 8.2 % (4.0-5.6)
[2023-12-04 10:35] LABS: Blood Urea Nitrogen 47 mg/dl (7-17); Calcium 8.2 mg/dl (8.4-10.2); Carbon Dioxide 17 mmol/L (22-30); Chloride 110 mmol/L (98-107); Estimated Creatinine Clearance 18 ml/min; Glucose 214 mg/dl (70-99); Potassium 4.9 mmol/L (3.5-5.1); Sodium 135 mmol/L (135-145); eGFR 18.09
[2023-12-04] MEDS: BUMEX 1 MG PO ×2 (10:35→17:25)
[2023-12-04] MEDS: TYLENOL 650 MG PO (10:40)
[2023-12-04 11:13] LABS: Glucose - Point of Care 179 mg/dl (70-99)
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
[2023-12-04] MEDS: NOVOLOG FLEXPEN-LOW RESISTANCE 1 UNITS SC ×2 (12:33→17:26)
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
--- NOTE | 2023-12-04 14:30 | W.PN.HOSP.TC ---
Today's Communication/Plan
-
CW home anti HTN tx
CW Bumex
Consult cards/renal
Assessment / Plan
Assessment / Plan
Hypertensive emergency-patient comes with uncontrolled hypertension due to noncompliance with the medication. She has no associated mild heart failure with radiologically and biochemically. She also has worsening of her renal function compared to
spring this year.
Improved blood pressure. Off of IV nitro drip.
Currently on home regimen of antihypertensives. Continue to follow blood pressure not adjust medication as needed.
Acute heart failure with midrange EF-patient has lower extremity edema but no other clinical symptoms. Her BNP is more than 27,000 which could be function of chronic kidney disease but also has increased pulm vasculature on the chest x-ray all
concerning for CHF decompensation. Last echo 05/2023 showed EF of 40 to 45%. Clinically not in any distress. Oxygenating okay. Patient did receive IV Bumex in the ER. Continue with her home dose of Lasix and follow her symptomatology. Appt cards
input
Chronic kidney disease stage IV. Creatinine is 2.9 which has been the case for the last couple of months. Compared to spring creatinine has worsened. Control the blood pressure. Consulted nephrology
Metabolic acidosis-normal anion gap-suspect more renal failure related than DKA. Started on sodium bicarbonate tablets.
Diabetes mellitus on insulin-again noncompliant. Hyperglycemia noted. No clinical symptoms of DKA.HbA1C 8.2. Continue with home dose of insulin and follow blood sugars closely and adjust insulin accordingly.Blood sugars today are ok so far.
Patient known dual antiplatelet agents-denies any heart disease or stents in the heart. Will review with cardiology .
Full code.
Total time spent on today's encounter was 52 minutes which included time spent in counseling the patient regarding diagnosis and treatment plan as listed above, goals of care, and symptom management. Case was discussed with nursing staff,
specialists. All labs and imaging personally reviewed by me. Remainder the time spent in detailed review of previous records, lab data, imaging, and other medical provider documentation.
Anticipated Discharge: 24 - 48 hours
Subjective/Interval History
-
Date of Service: December 04, 2023
No overnight events.
Denies shortness of breath or chest pain.
Denies any headache.
Denies any nausea vomiting.
Voicing no specific complaints.
Objective Data
-
Labs:
Laboratory Results
12/04/23 12/04/23
04:13 09:55
Sodium 133 L 135
Potassium 4.8 4.9
Chloride 113 H 110 H
Carbon Dioxide 11 L* 17 L
BUN 49 H 47 H
Creatinine 3.0 H 3.2 H
Glucose 217 H 214 H
Calcium 7.9 L 8.2 L
Vital Signs:
Vital Signs
Temp Pulse Resp BP Pulse Ox
99.2 F 87 17 161/85 100
12/04/23 11:58 12/04/23 09:45 12/04/23 09:45 12/04/23 08:00 12/04/23 10:01
Review of Systems
-
Constitutional: Denies Fever
EENT: Denies Sore Throat
Neuro: Denies Dizzy
Physical Exam
-
General: No Apparent Distress
Respiratory: Clear to Auscultation and Non Labored Respirations; Negative Accessory Resp Muscle Use
Cardiac: Regular Rhythm and S1/S2
GI: Soft
Neuro: AO x 3
Psych: Calm; Negative Confused
Data Reviewed
-
Labs: Labs Reviewed by me
[2023-12-04 15:28] LABS: Glucose - Point of Care 165 mg/dl (70-99)
--- NOTE | 2023-12-04 16:13 | CM ---
Patient with Dx Hypertensive emergency, Acute heart failure. Room air.
Met with patient who resides alone in a 2 story house with 4 JUDY.
The patient has been independent in ADLs and ambulation.
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
Housing/food/utility/transport insecurity:
Patient says she is able to pay for her house and utilities. She was behind in her car payments but made a payment arrangement so as to keep the car. Her sister helps by paying one of her doctor/specialist charges. She has difficulty affording
food. Patient states she is not eligible for food stamps as she makes $17.50/hour and has no dependents. Provided [employer] as a resource.
Patient states she may be eligible for insurance through her employer beginning 12/31.
No DME or prior VN.
PCP - j[facility]
Pharmacy - [facility]
No CM d/c needs identified.
Plan home.
[2023-12-04 17:06] LABS: Glucose - Point of Care 151 mg/dl (70-99)
[2023-12-04] MEDS: LIPITOR 40 MG PO (17:24)
--- NOTE | 2023-12-04 20:15 | PTCARENOTE ---
Received pt from day shift. Pt AAOx3. VSS. Pt refused MOOSE Heparin shot. education provided on importance of medication, but pt still refused. Pt is able to make needs known. Pt resting in bed with call crews in reach.
[2023-12-04 20:56] LABS: Urine Albumin 3+ (Neg - Trace); Urine Bilirubin Negative (Negative); Urine Character Clear (Clear); Urine Color Yellow; Urine Glucose 1+ (Negative); Urine Ketone Negative (Negative); Urine Leukocyte Negative (Negative); Urine Nitrite Negative (Negative); Urine Occult Blood Trace (Negative); Urine Specific Gravity 1.015 (<1.030); Urine Urobilinogen Negative (Neg - 1+)
[2023-12-04 21:07] LABS: Urine Bacteria Moderate (Negative); Urine Red Blood Cell 0-2 /HPF (0-2); Urine White Cell 0-2 /HPF (0-5)
[2023-12-04 21:24] LABS: Protein/creatinine Ratio 17.2; Urine Protein 506 mg/dl
[2023-12-04 21:32] LABS: Glucose - Point of Care 107 mg/dl (70-99)
[2023-12-05] VITALS (8 sets, daily range): BP systolic 117–148; BP diastolic 67–88; BMI 35.1
[2023-12-05] MEDS: TYLENOL 650 MG PO (01:52)
[2023-12-05 06:18] LABS: Blood Urea Nitrogen 54 mg/dl (7-17); Calcium 7.6 mg/dl (8.4-10.2); Carbon Dioxide 14 mmol/L (22-30); Chloride 109 mmol/L (98-107); Estimated Creatinine Clearance 19 ml/min; Glucose 85 mg/dl (70-99); Potassium 5.2 mmol/L (3.5-5.1); Sodium 132 mmol/L (135-145); eGFR 18.09
--- NOTE | 2023-12-05 06:24 | W.PN.UPDATE ---
Update Note
Progress Note Update
this am Ca 7.6 corrected calcium 8.2 repleted as needed.
Carbon dioxide 14, sodium bicarb 50 meq one time IV ordered.
Will repeat bmp
[2023-12-05] MEDS: SODIUM BICARBONATE 50 MEQ IV (06:36)
[2023-12-05] MEDS: CALCIUM GLUCONATE 100 IV (06:36)
--- NOTE | 2023-12-05 06:55 | PTCARENOTE ---
labs critical this AM, CO2 14, Ca low at 7.6. notified covering WINDER TENDER- orders entered for amp of sodium bicarb, IV calcium rider hung and infusing. care ongoing.
[2023-12-05 07:26] LABS: Glucose - Point of Care 90 mg/dl (70-99)
[2023-12-05] MEDS: NOVOLOG FLEXPEN-LOW RESISTANCE SC (08:11)
[2023-12-05] MEDS: NOVOLOG MIX 70/30 FLEXPEN 16 UNITS SC ×2 (08:12→16:19)
[2023-12-05] MEDS: SODIUM BICARBONATE 650 MG PO (08:12)
[2023-12-05] MEDS: COREG 6.25 MG PO (08:12)
[2023-12-05] MEDS: ZESTRIL 10 MG PO (08:12)
[2023-12-05] MEDS: PLAVIX 75 MG PO (08:12)
[2023-12-05] MEDS: ASPIR LOW (ENTERIC COATED) 81 MG PO (08:12)
[2023-12-05] MEDS: BUMEX 1 MG PO ×2 (08:12→16:23)
[2023-12-05] MEDS: NORVASC 10 MG PO (08:12)
--- NOTE | 2023-12-05 09:48 | W.PN.HOSP.TC ---
Today's Communication/Plan
-
DC Plavix
Transfer to telemetry.
Follow creatinine.
Assessment / Plan
Assessment / Plan
Hypertensive emergency-patient comes with uncontrolled hypertension due to noncompliance with the medication. She has associated mild heart failure with radiologically and biochemically. She also has worsening of her renal function compared to
spring this year.
Much improved blood pressure. Off of IV nitro drip.
Currently on home regimen of antihypertensives. Continue to follow blood pressure not adjust medication as needed.
Stressed about the importance of blood pressure medication compliance to prevent organ damage including worsening of renal function, need of dialysis, and heart failure
Acute heart failure with midrange EF-patient has lower extremity edema but no other clinical symptoms. Her BNP is more than 27,000 which could be function of chronic kidney disease but also has increased pulm vasculature on the chest x-ray all
concerning for CHF decompensation. Last echo 05/2023 showed EF of 40 to 45%. Clinically not in any distress. Oxygenating okay. Patient did receive IV Bumex in the ER. Continue with her home dose of Lasix and follow her symptomatology. Appt cards
input.Remains asymptomatic.
Chronic kidney disease stage IV. Creatinine is 3.2 today. Compared to spring creatinine has worsened. Control the blood pressure. Appreciate nephrology input.
Metabolic acidosis-normal anion gap-suspect more renal failure related than DKA. Started on sodium bicarbonate tablets.
Diabetes mellitus on insulin-again noncompliant. Hyperglycemia noted. No clinical symptoms of DKA.HbA1C 8.2. Continue with home dose of insulin and follow blood sugars closely and adjust insulin accordingly.Blood sugars are ok.
Patient on dual antiplatelet agents-denies any heart disease or stents in the heart. Discussed with cardiology-no indication for DAPT. No recent acute stroke for DAPT indications. Will DC Plavix and continue with aspirin.
Full code.
DW cardiology.
DC when ok from neurology standpoint.
Total time spent on today's encounter was 52 minutes which included time spent in counseling the patient regarding diagnosis and treatment plan as listed above, goals of care, and symptom management. Case was discussed with nursing staff,
specialists. All labs and imaging personally reviewed by me. Remainder the time spent in detailed review of previous records, lab data, imaging, and other medical provider documentation.
Anticipated Discharge: Within 24 hours
Subjective/Interval History
-
Date of Service: December 05, 2023
Voicing no specific complaints.
Denies any chest pain or shortness of breath.
No headache.
Tolerating diet.
Denies any dizziness while walking to the bathroom.
Objective Data
-
Labs:
Laboratory Results
12/05/23 12/05/23
04:52 10:00
Sodium 132 L Pending
Potassium 5.2 H Pending
Chloride 109 H Pending
Carbon Dioxide 14 L* Pending
BUN 54 H Pending
Creatinine 3.2 H Pending
Glucose 85 Pending
Calcium 7.6 L Pending
Vital Signs:
Vital Signs
Temp Pulse Resp BP Pulse Ox
98.2 F 81 18 131/82 99
12/05/23 07:00 12/05/23 08:14 12/05/23 08:14 12/05/23 08:14 12/05/23 09:22
I&O
12/04/23 12/05/23 12/06/23
06:59 06:59 06:59
Output Total 300 / 300
Balance -300 / -300
Review of Systems
-
Constitutional: Denies Fever
EENT: Denies Sore Throat
Respiratory: Denies Cough or Trouble Breathing
Cardiac: Denies Chest Pain
Abdomen/GI: Denies Abdominal Pain, Nausea or Vomiting
Neuro: Denies Dizzy or Headache
Physical Exam
-
General: Comfortable
Respiratory: Clear to Auscultation and Non Labored Respirations; Negative Accessory Resp Muscle Use
Cardiac: Regular Rhythm and S1/S2
GI: Soft and Nontender
Neuro: AO x 3 and No Motor Deficits
Psych: Calm; Negative Confused or Agitated
Data Reviewed
-
Labs: Labs Reviewed by me
[2023-12-05 10:52] LABS: Blood Urea Nitrogen 52 mg/dl (7-17); Calcium 7.8 mg/dl (8.4-10.2); Carbon Dioxide 18 mmol/L (22-30); Chloride 107 mmol/L (98-107); Estimated Creatinine Clearance 19 ml/min; Glucose 155 mg/dl (70-99); Potassium 5.2 mmol/L (3.5-5.1); Sodium 133 mmol/L (135-145); eGFR 18.09
[2023-12-05] MEDS: NOVOLOG FLEXPEN-LOW RESISTANCE 1 UNITS SC ×2 (11:41→16:18)
[2023-12-05 11:47] LABS: Glucose - Point of Care 160 mg/dl (70-99)
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
--- NOTE | 2023-12-05 15:21 | CM ---
Met with patient at bedside to discuss discharge plan
Patient is driving self home
Plan: Discharge to home; no needs
[2023-12-05] MEDS: AFLURIA (36 mos+) 2024-2025 FORMULA 0.5 ML IM (16:05)
[2023-12-05 16:21] LABS: Glucose - Point of Care 178 mg/dl (70-99)
[2023-12-05] MEDS: LIPITOR 40 MG PO (16:23)
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
--- NOTE | 2023-12-06 16:49 | W.DCSUMMARY ---
Addendum entered and electronically signed by Alvaro Ordoñez MD 12/06/23 17:05:
Date of discharge correction-12/05/2023
Original Note:
Discharge Summary
Discharge Data
Date of Admission: 12/03/23
Date of Discharge: 12/06/23
-
Pending Results: Yes (Hepatitis serology, ROGERIO, complement)
Hospital Course
Primary diagnosis:
Hypertensive emergency
Acute heart failure with midrange EF
Acute kidney injury on Progressive chronic kidney disease 4
Secondary diagnosis:
Diabetes mellitus type 2
Hypertension
Hospital course:
38-year-old patient with history of hypertension, diabetes mellitus, chronic kidney disease presented with hypertensive emergency situation. She has not taken her medication for 2 weeks. She got them filled on the day of admission but did not take
them. On the day of admission she had an appointment with supplier engineer , they noted significant elevation in the blood pressure referred her to the ER.
Along with elevated blood pressure she was in mild acute heart failure. She is known to have mid range EF of 40 to 45%. She was put on IV Bumex and switch to her home dose of Bumex. She was not hypoxic. She was seen by cardiology. No further
testing warranted as it was felt hypertension related.
Patient has worsening of her chronic kidney disease stage IV. The clinical picture was more an acute kidney injury on chronic kidney disease from hypertensive emergency. Her creatinine was 3.2 which is higher than her recent. She has history of
significant nephrotic syndrome. Was seen by women's studies professor to recommended continue with antihypertensive regimen and optimize blood pressure. Since she also was having metabolic acidosis secondary to it was put on sodium bicarbonate tablets. They
requested serology workup prior to discharge. She was discharged home to follow-up with them as an outpatient.
Diabetes mellitus type 2 again noncompliant with her insulin for 2 weeks. She was put on her insulin 70/30 and the blood sugars were okay. Hemoglobin A1c was 8.2.
Consultants on board:
Cardiology-José Conner
Nephrology - Emily Rowell
Discharge Plan
-
Patient Disposition: Home (Routine Discharge)
Discharge Diagnosis/Procedures: hypertensive emergency after failing to take medication for 2 weeks; mild acute CHF, acute on chronic kidney disease 4
Diet: 2 Gram Sodium
Activity: As tolerated
Driving Restrictions: As prior to admission
Bathing Restrictions: None
Blood Work: BMP blood test starting of the week - follow result with Dr Mcgowan
Specialty Instructions: Weigh Daily- Call MD for wt gain/loss 3 lbs overnight/5 lbs in 1 week
Referrals:
Rajesh Mcgowan MD [Active] - (as scheduled in December)
UNKNOWN - PT DOES,NOT KNOW [Family Provider] - in less than 1 week (Follow with [facility])
Prescriptions:
New
sodium bicarbonate 650 mg Tablet
1,300 mg PO BID Qty: 120 0RF
Rx Instructions:
new medication for kidneys
Continued
carvedilol 6.25 mg Tablet
6.25 mg PO BID Qty: 60 0RF
atorvastatin 40 mg Tablet
40 mg PO QPM
aspirin 81 mg Tablet,Delayed Release (Dr/Ec)
81 mg PO DAILY
amlodipine 10 mg Tablet
10 mg PO DAILY
lisinopril 10 mg Tablet
10 mg PO DAILY
bumetanide 1 mg tablet
1 mg PO BID
Novolin 70-30 FlexPen U-100 100 unit/mL (70-30) Insulin Pen
16 unit SC BID Qty: 15 1RF
Discontinued
clopidogrel 75 mg Tablet
75 mg PO DAILY
Discharge Orders:
Discharge Patient (As Directed); Ordered 12/05/23
Ordered By: Alvaro Ordoñez
Discharge Date and Time
Discharge Date/Time: 12/05/23 16:49
Print Language: GUAMANIAN
[2023-12-06 23:17] LABS: Complement C3 86 mg/dl (88-165)
[2023-12-07 19:05] LABS: Hepatitis B Surface Antigen Negative (Negative)
[2023-12-07 19:24] LABS: Hepatitis B Core Ab, Total Negative (Negative); Hepatitis C Antibody Negative (Negative)
[2023-12-07 20:19] LABS: Hepatitis B Surface Antibody Positive
[2023-12-08 01:10] LABS: ANA, IgG Reflex to HEp-2 None Detected (None Detected)
== END 2023-12-05 16:49 | disposition home or self-care (01) | DRG 291 ==
LOC: IMU 19:09
PROVIDERS: Nurse Practitioner Family; ADMITTING PHYSICIAN Internal Medicine; CONSULT PHYSICIAN Internal Medicine; CONSULT PHYSICIAN Internal Medicine Cardiovascular Disease; EMERGENCY PHYSICIAN Emergency Medicine
DX: I13.0 Hypertensive heart and chronic kidney disease with heart failure and stage 1 through stage 4 chronic kidney disease, or unspecified chronic kidney disease (principal); I50.23 Acute on chronic systolic (congestive) heart failure; E87.20 Acidosis, unspecified; I16.1 Hypertensive emergency; N18.4 Chronic kidney disease, stage 4 (severe); N17.9 Acute kidney failure, unspecified; I42.9 Cardiomyopathy, unspecified; D63.1 Anemia in chronic kidney disease; E11.65 Type 2 diabetes mellitus with hyperglycemia; E11.22 Type 2 diabetes mellitus with diabetic chronic kidney disease; Z91.199 Patient's noncompliance with other medical treatment and regimen due to unspecified reason; Z91.148 Patient's other noncompliance with medication regimen for other reason
CPT/HCPCS: 71046; 80048; 80053; 81003; 81015; 82010; 82570; 82962; 83036; 83880; 84156; 84484; 84703; 85025; 86038; 86160; 86704; 86706; 86803; 87340; 93005; 99291

== ENCOUNTER 2024-01-01 18:34 | Emergency (ER) | payer SELFPAY ==
[2024-01-01 18:39] VITALS: BP 196/117
--- NOTE | 2024-01-01 19:07 | ED.GENMED ---
History of Present Illness
General
Chief Complaint: Back Pain
Time Seen by Provider: 01/01/24 19:06
History of Present Illness
History of Present Illness:
TIME OF INITIAL ENCOUNTER: 7:08 PM
HPI: The patient presents with back pain that has been ongoing over the past several hours. This is exactly the pain that she had 2 months ago. She tells me at that time, 'they gave me a pain pill at that time and let me sleep are all night'.
Review of old records show that given Percocet. She would like pain medication now however she drove herself here. The pain is located in the left periscapular region. Her blood pressure is markedly elevated.
EXAM:
GENERAL: The patient appears very uncomfortable and is crying
HEENT: Moist oral mucosa, some periorbital edema noted
BACK: Decreased active range of motion of the thoracolumbar spine due to pain, there is tenderness noted at the left periscapular region
NEUROLOGIC: Fair strength all extremities, no obvious coordination deficits
PSYCHIATRIC: Appropriate mental status, normal insight and judgement
EXTREMITIES: Nontender, ankle edema noted, moves all extremities equally
SKIN: No rash, no lesions
NUMBER AND COMPLEXITY OF PROBLEMS ADDRESSED AT THE ENCOUNTER
� Chronic conditions affecting care: Diabetes, high blood pressure, CKD
� Acute Exacerbation and/or Progression of Chronic Illness: This is an acute but recurring problem
� Differential Diagnosis includes: Thoracic strain,
AMOUNT AND/OR COMPLEXITY OF DATA TO BE REVIEWED AND ANALYZED
� I performed an independent evaluation of and my interpretation is:
EKG:
CT:
X-rays:
Laboratory Studies:
Other:
� Review of other/old records: I reviewed records, the patient was here with severe hypertension last month. Prior to admission she had not been taking her blood pressure for 2 weeks. She was in mild heart failure with known EF
of around 40 to 45% and was placed on IV Bumex. I also reviewed the notes from 11/17/2023 and at that time was placed on Percocet. She had a chest x-ray at that time that was unremarkable.
� Clinical information was obtained by an independent historian:
� Prescriptions/Medications Considered but not given:
� Further testing considered but not performed: Considered imaging however the patient had a chest x-ray with the exact same symptoms 6 weeks ago.
RISK OF COMPLICATIONS AND/OR MORBIDITY OR MORTALITY OF PATIENT MANAGEMENT
� Social determinants of health affecting care: Drove herself here
� Discussion with other providers:
� Escalation of care including admission/observation vs risk of discharge considered: Patient blood pressure is markedly elevated which is chronic for her. She has not taken her evening dose of blood pressure medication yet�I
have given her a dose of Coreg. Will give short course of narcotic analgesia. She tells me that this is the exact same kind of pain that she has had in the past. This was treated successfully with Percocet.
ANY OTHER UPDATES:
Past History
Past History
ED Past Medical History: CHF, HTN, IDDM and Renal failure (stage 3 ckd)
ED Past Surgical History: Tonsilectomy
Social History
Tobacco: Non-smoker
Alcohol: None
Drug: None
Phy Exam
Physical Exam
Physical Exam:
See HPI
Course
Orders/Labs/Results
Orders:
Orders
01/01/24 19:12
Carvedilol [Coreg] 6.25 mg PO NOW STA
Vital Signs
Initial and Last Documented VS:
Initial Vital Signs
Temp Pulse Resp BP Pulse Ox
98.2 F 100 16 196/117 98
01/01/24 18:39 01/01/24 18:39 01/01/24 18:39 01/01/24 18:39 01/01/24 18:39
Last Documented Vital Signs
Temp Pulse Resp BP Pulse Ox
98.2 F 100 16 196/117 98
01/01/24 18:39 01/01/24 18:39 01/01/24 18:39 01/01/24 18:39 01/01/24 18:39
*Critical Care Note
Total Time (30-74mins, 75-104mins- exclusive of procedures): Not Applicable
ED Attending Note
-
Portions of this chart may have been created with voice recognition software.� Occasional wrong word or��sound alike� substitutions may have occurred due to the inherent limitations of voice recognition software.
Discharge Plan
Departure
Patient Disposition: Home (Routine Discharge)
Date of Disposition: 01/01/24
Time of Disposition: 19:15
Patient with high blood pressure during this ER visit?: Yes
Discharge Problem:
Back pain
Instructions: Upper Back Pain (DC), BLOOD PRESSURE
Prescriptions:
New
oxycodone-acetaminophen [Percocet] 5-325 mg tablet
1 tab PO Q8H PRN (Reason: Pain) Qty: 14 0RF
No Action
carvedilol 6.25 mg Tablet
6.25 mg PO BID Qty: 60 0RF
atorvastatin 40 mg Tablet
40 mg PO QPM
aspirin 81 mg Tablet,Delayed Release (Dr/Ec)
81 mg PO DAILY
amlodipine 10 mg Tablet
10 mg PO DAILY
lisinopril 10 mg Tablet
10 mg PO DAILY
bumetanide 1 mg tablet
1 mg PO BID
sodium bicarbonate 650 mg Tablet
1,300 mg PO BID Qty: 120 0RF
Rx Instructions:
new medication for kidneys
Novolin 70-30 FlexPen U-100 100 unit/mL (70-30) Insulin Pen
16 unit SC BID Qty: 15 1RF
Activity Restrictions/Additional Instructions:
I sent a prescription for Percocet to the [facility] at [address] in [place]. I reviewed your old records. Your blood pressure is very high. We did give a dose of Coreg/carvedilol this evening. Follow-up your primary care doctor. Return
here if worse or other concerns.
Interventions
Interventions:
*Risk Screen - Suicide Last Done: 01/01/24 18:39
*General Assessment Last Done: 01/01/24 18:39
*Neglect/Abuse Screening Last Done: 01/01/24 18:39
Discharge Date and Time
Print Language: CAMEROONIAN
[2024-01-01] MEDS: COREG 6.25 MG PO (19:32)
== END 2024-01-01 19:35 | disposition home or self-care (01) ==
LOC: EMR 18:34
PROVIDERS: EMERGENCY PHYSICIAN Emergency Medicine
DX: M54.89 Other dorsalgia (principal); E11.22 Type 2 diabetes mellitus with diabetic chronic kidney disease; I13.0 Hypertensive heart and chronic kidney disease with heart failure and stage 1 through stage 4 chronic kidney disease, or unspecified chronic kidney disease; I50.9 Heart failure, unspecified; N18.30 Chronic kidney disease, stage 3 unspecified; Z79.4 Long term (current) use of insulin
CPT/HCPCS: 99283

== ENCOUNTER → 2024-03-16 13:24 | Outpatient (REF) | payer OTHER, SELFPAY ==
[2024-03-16 14:35] LABS: Potassium 5.8 mmol/L (3.5-5.1)
== END ==
LOC: OLAB 13:24
PROVIDERS: ATTENDING PHYSICIAN Internal Medicine Medical Oncology
DX: N18.6 End stage renal disease (principal)
CPT/HCPCS: 36415; 84132

== ENCOUNTER → 2024-03-24 14:56 | Outpatient (REF) | payer MEDICAID, SELFPAY | LOC: RAD 14:56 | PROVIDERS: ATTENDING PHYSICIAN Surgery Vascular Surgery | DX: N18.6 End stage renal disease (principal) | CPT/HCPCS: 93985 ==

== ENCOUNTER 2024-03-31 11:26 | Day surgery (SDC) | payer MEDICAID, SELFPAY ==
--- NOTE | 2024-03-29 15:30 | PTCARENOTE ---
Abn ECG 12/03/[address] Gutierrez, no further intervention.
[2024-03-31] VITALS (12 sets, daily range): BP systolic 154–225; BP diastolic 77–116; BMI 29.6
[2024-03-31 12:00] LABS: Hematocrit 37.8 % (37.0-47.0); Hemoglobin 12.3 g/dL (12.0-16.0); Mean Corp Hgb Conc. 32.5 g/dL (33.0-37.0); Mean Corpuscular Hgb 30.1 pg (27.0-31.0); Mean Corpuscular Volume 92.4 fL (81.0-99.0); Mean Platelet Volume 9.8 fL (7.4-10.4); Platelet Count 220 10^3/uL (130-400); Red Blood Cell Count 4.09 10^6/uL (4.20-5.40); Red Cell Dist. Width 15.6 % (11.5-14.5); White Blood Cell Count 8.8 10^3/uL (4.8-10.8)
[2024-03-31 12:00] LABS: Glucose - Point of Care 237 mg/dl (70-99)
[2024-03-31] MEDS: PERIDEX 0.12% ORAL RINSE 15 ML PO (12:05)
[2024-03-31] MEDS: NSS 500 IV (12:05)
[2024-03-31] MEDS: BACTROBAN NASAL 1 GRAM NASAL (12:05)
[2024-03-31 12:08] LABS: APTT 29.2 Sec (23.4-35.0); INR 1.11; PT 14.8 Sec (11.4-14.6)
[2024-03-31 12:11] LABS: Blood Urea Nitrogen 28 mg/dl (7-17); Calcium 9.1 mg/dl (8.4-10.2); Carbon Dioxide 28 mmol/L (22-30); Chloride 93 mmol/L (98-107); Glucose 243 mg/dl (70-99); Potassium 4.4 mmol/L (3.5-5.1); Sodium 134 mmol/L (135-145); eGFR 21.23
[2024-03-31] MEDS: NOVOLOG vial 2 UNITS SC (12:20)
[2024-03-31] MEDS: PROCARDIA XL (EXTENDED RELEASE) 60 MG PO (12:38)
--- NOTE | 2024-03-31 12:55 | W.SUR.PREOP ---
Pre-Operative Surgical Note
-
I have examined this patient prior to the performance of the scheduled procedure.
The patient's condition is unchanged from the time of the current History and
Physical and the patient is able to undergo the scheduled procedure.
[2024-03-31 14:23] LABS: Glucose - Point of Care 153 mg/dl (70-99)
--- NOTE | 2024-03-31 14:49 | W.SUR.POST ---
Surgical Immediate Post Op
Note
Pre Op Diagnosis: End-stage renal disease same
Post Op Diagnosis: Same
Procedure Performed: Left upper extremity radiocephalic AV fistula creation
Primary Surgeon: Guillermo
Assist: Imani HERNANDEZ
Anesthesia: LMA
Estimated Blood Loss: 15 cc
Fluids: See anesthesia flowsheet
Drains/Shunts: None
Specimens/Cultures: None
Doppler/Duplex/Angio (Y/N): Y
Complications: None
Operative Findings: +Doppler signal, palpable radial pulse
[2024-03-31 15:01] LABS: Glucose - Point of Care 157 mg/dl (70-99)
[2024-03-31] MEDS: SUBLIMAZE 50 MCG IV (15:21)
--- NOTE | 2024-03-31 15:35 | OR.RPT ---
Operative Report
Operative Report
PROCEDURE DATE: 03/31/2024
Preoperative diagnosis: End-stage renal disease on hemodialysis
Postoperative diagnosis: Same
Procedure: Left upper extremity radiocephalic arteriovenous fistula creation
Surgeon: Guillermo
Driver License Agent: EDIS Diallo, required for all aspects of procedure including assistance with traction/countertraction, following a suture line, assistance with closure.
Complications: None
Anesthesia: General
Indications for procedure:
End-stage renal disease on hemodialysis. Required more permanent access. Currently dialyzed via tunneled dialysis catheter. Risk/benefits/alternatives of fistula creation were discussed with the patient and her family. They understood all wish
to proceed. Note the patient was of smaller habitus and had some concern about the size of her arteries and veins. Vein mapping demonstrated suitable sized veins in the left upper extremity. Discussed with her that would ultrasound to assess
arteries and veins in the operating room at the time of the procedure as well.
Description of procedure:
Patient was identified brought to the operating room placed on the table in supine position. After the induction of anesthesia, I used an ultrasound in the operating room to assess the arteries and veins. The cephalic vein in the forearm and the
upper arm seemed reasonable. The forearm vein actually was very suitable. I therefore then felt that it would be ideal to proceed initially with a radiocephalic AV fistula creation. However, the radial artery looked relatively on disease on
ultrasound, but was somewhat small in size as would be expected based on her stature. However, I felt that it was worse trying radiocephalic fistula.
After the adequate administration of anesthesia and perioperative antibiotics she was prepped and draped in the standard surgical fashion. A standard preoperative timeout was undertaken and everybody was in agreement the plan. A longitudinal
incision was made distal forearm/wrist on the radial aspect. This was carried through skin subcutaneous tissue.
A small lateral subcutaneous flap was raised and the cephalic vein was identified. It was carefully dissected away from surrounding structures take great care to avoid any injury to the structures. Any branches were ligated between silk ties and
then divided. Thus this allowed me to mobilize the vein. The vein appeared to be very suitably sized. Once I mobilized the suitable segment, I deepened my dissection in the medial aspect of the incision through the fascial layer. I identified
the radial artery. I carefully dissected away from surrounding structures take great care to avoid any injury to structures. Notes the artery was very small and did spasm a little bit as I dissected it. However had a very reasonable pulse and it
and felt on disease (no significant plaque to palpation). I passed a vessel loop around it proximally and distally. Loops were just placed loosely and not tightened.
Next, I ligated the cephalic vein distally in my field with a silk tie and a clip. I then transected it. I distended the vein under heparinized saline. It distended very well. I passed the dilators using 2.5 mm, followed by 3 mm dilators which
passed without any difficulty whatsoever. I marked the anterior surface of the vein under distention to avoid any kinking or twisting.
Next, I gave the patient 3000 units of intravenous heparin. I used Yasargil clips to occlude the radial artery proximally and distally, and also used a Yasargil clip to prevent backbleeding from the vein. I made an arteriotomy with a [place] blade
and extended using a micro Lowery scissor. Again as noted it was a very small artery, but the king were on diseased and the lumen was nicely patent. I then spatulated the cephalic vein and sewed an end to side anastomosis using a running 7-0
Prolene suture (four-quadrant technique). I backbled the artery and then completed and tied down my suture line. I then released the Yasargil clip occluding the vein. Next I released my proximal radial artery Yasargil clip. Finally I released my
outflow radial artery Yasargil clip. There was flow to palpation the fistula, but it was not as strong a thrill. I noted that the blood pressure was close to 100 points lower systolic than it was preoperatively (her systolic blood pressure was
close to 200 systolic preoperatively). However with a Doppler there was an excellent signal in the vein confirming good arterial venous flow. There was an excellent palpable pulse signal in the radial artery at the level of the wrist. At this
point I was very satisfied. I irrigated. I achieved and confirmed full hemostasis. We then closed in layers using 3-0 Vicryl deep dermal layer followed by 4 Monocryl subcuticular stitch. Dermabond was applied. The patient tolerated the
procedure well.
== END 2024-03-31 17:05 | disposition home or self-care (01) ==
LOC: CATH 11:26
PROVIDERS: ATTENDING PHYSICIAN Surgery Vascular Surgery; OTHER PHYSICIAN Internal Medicine Cardiovascular Disease
DX: I13.2 Hypertensive heart and chronic kidney disease with heart failure and with stage 5 chronic kidney disease, or end stage renal disease (principal); N18.6 End stage renal disease; Z99.2 Dependence on renal dialysis; E11.22 Type 2 diabetes mellitus with diabetic chronic kidney disease; I50.22 Chronic systolic (congestive) heart failure; Z86.73 Personal history of transient ischemic attack (TIA), and cerebral infarction without residual deficits; I25.2 Old myocardial infarction; Z79.4 Long term (current) use of insulin
CPT/HCPCS: 36821; 80048; 82962; 85027; 85610; 85730; 86850; 86900; 86901

== ENCOUNTER → 2024-04-22 09:55 | Outpatient (REF) | payer OTHER, SELFPAY | LOC: HWRAD 09:55 | PROVIDERS: ATTENDING PHYSICIAN Registered Nurse | DX: N18.6 End stage renal disease (principal) | CPT/HCPCS: 93990 ==

== ENCOUNTER 2024-04-25 01:58 | Emergency (ER) | payer OTHER, SELFPAY ==
[2024-04-25 01:59] VITALS: BP 130/68
--- NOTE | 2024-04-25 02:54 | EDRN ---
Pt with mid-lower back spasms since Thursday night around 1899. Pt was seen at [facility] and says no imaging was done, she was told to take tylenol and given a rx for lidocaine patches. Pt says a patch was applied while she was there and she removed it
on Thursday and did not put another one on because she does not think it helped. Pt was reaching into the dryer around 0 last night and says the pain got worse so she took 1950mg of tylenol (6 tablets) and went to [facility] however she said they had a
long wait so she left and came here. Pain feels like 'labor pains in my back' pt says she is unable to sit due to the pain. Pain does not radiate into legs, no numbness/tingling.
--- NOTE | 2024-04-25 03:05 | EDRN ---
Also, pt says she has applied heat to her back and says it does not help, nor does ice.
--- NOTE | 2024-04-25 03:23 | ED.GENMED ---
History of Present Illness
General
Chief Complaint: Back Pain
Source: patient and previous hospital records (Previous ED visits for similar complaints November 2023 and then again January 2024. Previous hospitalization December 2023)
Exam Limitations: none
Time Seen by Provider: 04/25/24 03:03
Nursing documentation reviewed up to this point in time: agreed with
History of Present Illness
History of Present Illness:
This is a 38-year-old woman who has history of end-stage renal disease, recently dialysis dependent, history of hypertension, CHF, insulin-dependent diabetic. She presents with left thoracic back pain that began several days ago. She has history
of very similar back pain thought to be musculoskeletal in nature, worse with movement, worse with lifting her 35 pound child. Evaluated in this ED November 2023 and then again January 2024 with very similar back pain complaints. At that time
was noted to be significantly hypertensive and had been poorly compliant with BP medications. Treated with a short course of Percocet with improvement. Since those visits patient has initiated dialysis and has been more compliant with medications
with normalization of her blood pressure.
She denies chest pain, no coughing or shortness of breath, no fever no chills, no abdominal pain, no diarrhea nor constipation. She does continue to produce urine, no dysuria and urgency and or hematuria.
She took Tylenol this evening without relief. Pain is worse with rotation and flexion of her trunk, worse with lying down, improves when she is standing. She denies arm pain nor leg pain, no weakness nor numbness.
She was evaluated at [facility] 2 days ago, reportedly given Tylenol and a lidocaine patch, Dilaudid, Valium. She returned to [facility] yesterday but due to significant wait time she left prior to evaluation.
Past History
Past History
ED Past Medical History: CHF, CVA, HTN, IDDM and Renal failure (Dialysis dependent)
ED Past Surgical History: Tonsilectomy and Other (AV fistula left arm March 2024)
Social History
Tobacco: Non-smoker
Alcohol: None
Drug: None
Living: with family
Family History
Family History: Other (Noncontributory)
Phy Exam
Physical Exam
Physical Exam:
GENERAL: 38-year-old short statured woman appears her stated age, awake and alert, pacing about exam room, appears mildly uncomfortable but easily communicative. Vital signs within normal limits.
EYE: anicteric
NECK: Supple, nontender, no meningismus, no significant adenopathy.
ENT: oral mucosa is moist. TM clear b/l, nares patent.
CARDIAC: Regular rate and rhythm. no murmur.
LUNGS: Clear breath sounds bilaterally, no acute respiratory distress, no wheezes/rales/rhonchi
ABDOMEN: Soft, nondistended, without focal tenderness, no r/g, no cvat. normoactive BS.
BACK: No midline bony tenderness. Mild to moderate tenderness mid thoracic more so on the left than right with mild ropiness of parathoracic musculature. There is no soft tissue swelling nor erythema. No rash.
NEUROLOGICAL: Alert and oriented x3, no focal neuro deficits. Gait is steady.
SKIN: Warm and dry, normal color, skin intact. No rash.
MUSCULOSKELETAL: No C/C/E. peripheral pulses are full and equal b/l. No palpable tenderness. AV fistula left anterior wrist with positive thrill, positive bruit.
PSYCH: Normal and appropriate interaction.
Course
Orders/Labs/Results
Orders:
Orders
04/25/24 03:21
Ketorolac [Toradol] 15 mg IM NOW STA
Oxycodone [Roxicodone] 5 mg PO NOW STA
04/25/24 05:14
Oxycodone [Roxicodone] 5 mg PO NOW STA
Vital Signs
Initial and Last Documented VS:
Initial Vital Signs
Temp Pulse Resp BP Pulse Ox
98.4 F 90 22 130/68 98
04/25/24 01:59 04/25/24 01:59 04/25/24 01:59 04/25/24 01:59 04/25/24 01:59
Last Documented Vital Signs
Temp Pulse Resp BP Pulse Ox
98.4 F 81 16 143/80 98
04/25/24 01:59 04/25/24 04:42 04/25/24 04:42 04/25/24 04:42 04/25/24 04:42
MDM/Problems Addressed
Differential Diagnosis Includes:
Concern for recurrent musculoskeletal mid back pain. Similar complaints on previous ED visits.
Will medicate for pain with a dose of Percocet and a small dose of Toradol.
At this point no indication for imaging nor laboratory studies.
Chronic conditions affecting care: HTN and Kidney disease
*Pulse Oximetry
Patient hypoxic: no
*Critical Care Note
Total Time (30-74mins, 75-104mins- exclusive of procedures): Not Applicable
Update Note
Update Note:
05:15
Patient notes mild improvement in back pain. Overall appears comfortable.
Vital signs within normal limits.
As above has had similar left thoracic back pain on numerous occasions with previous unremarkable cardiac as well as pulmonary and abdominal evaluations.
I have offered a small prescription for Percocet but lengthy discussion with patient that ultimately she is best served with prompt follow-up with her PCP and ongoing follow-up with her PCP regarding her back pain. Could consider physical therapy
evaluation and treatment, orthopedic evaluation.
Reasons to return discussed including fever, shortness of breath, chest pain, weakness or numbness.
ED Attending Note
-
Portions of this chart may have been created with voice recognition software.� Occasional wrong word or��sound alike� substitutions may have occurred due to the inherent limitations of voice recognition software.
Discharge Plan
Departure
Patient Disposition: Home (Routine Discharge)
Date of Disposition: 04/25/24
Time of Disposition: 05:17
Patient with high blood pressure during this ER visit?: No
Condition: Good
Discharge Problem:
acute on chronic thoracic back pain
Instructions: Upper Back Pain (DC)
Prescriptions:
New
oxycodone-acetaminophen [Percocet] 5-325 mg Tablet
1 tab PO TIDPRN PRN (Reason: pain) Qty: 10 0RF
No Action
atorvastatin 40 mg Tablet
40 mg PO DAILY
Novolin 70-30 FlexPen U-100 100 unit/mL (70-30) insulin pen
16 unit SC DAILY
carvedilol 12.5 mg Tablet
12.5 mg PO BID
bumetanide 2 mg Tablet
2 mg PO BID
nifedipine 60 mg Tablet Extended Release 24hr
60 mg PO DAILY
Referrals:
NONE,* [Family Provider] -
Activity Restrictions/Additional Instructions:
Follow-up with your primary care physician this week for recheck.
Interventions
Interventions:
*Risk Screen - Suicide Last Done: 04/25/24 01:59
*General Assessment Last Done: 04/25/24 02:54
*Neglect/Abuse Screening Last Done: 04/25/24 01:59
*Nursing Disposition Last Done: 04/25/24 05:46
ED-Musculoskeletal Assessment Last Done: 04/25/24 02:54
Discharge Date and Time
Discharge Date/Time: 04/25/24 05:46
Print Language: PAPUA [place] GUINE[place]
[2024-04-25] MEDS: ROXICODONE 5 MG PO ×2 (03:30→05:26)
[2024-04-25] MEDS: TORADOL 15 MG IM (03:31)
[2024-04-25 04:42] VITALS: BP 143/80
--- NOTE | 2024-04-25 05:31 | EDRN ---
Pt calling her friend Deanna to pick her up
== END 2024-04-25 05:46 | disposition home or self-care (01) ==
LOC: EMR 01:58
PROVIDERS: EMERGENCY PHYSICIAN Emergency Medicine
DX: M54.6 Pain in thoracic spine (principal); I13.2 Hypertensive heart and chronic kidney disease with heart failure and with stage 5 chronic kidney disease, or end stage renal disease; N18.6 End stage renal disease; I50.9 Heart failure, unspecified; E11.22 Type 2 diabetes mellitus with diabetic chronic kidney disease
CPT/HCPCS: 99284; 96372

== ENCOUNTER 2024-05-26 08:51 | Day surgery (SDC) | payer OTHER, SELFPAY ==
[2024-05-26] VITALS (8 sets, daily range): BP systolic 147–170; BP diastolic 88–99; BMI 27.4
[2024-05-26 09:22] LABS: Hematocrit 31.1 % (37.0-47.0); Hemoglobin 10.8 g/dL (12.0-16.0); Mean Corp Hgb Conc. 34.7 g/dL (33.0-37.0); Mean Corpuscular Hgb 30.9 pg (27.0-31.0); Mean Corpuscular Volume 89.1 fL (81.0-99.0); Mean Platelet Volume 10.4 fL (7.4-10.4); Platelet Count 211 10^3/uL (130-400); Red Blood Cell Count 3.49 10^6/uL (4.20-5.40); Red Cell Dist. Width 13.3 % (11.5-14.5); White Blood Cell Count 7.6 10^3/uL (4.8-10.8)
[2024-05-26 09:34] LABS: Blood Urea Nitrogen 38 mg/dl (7-17); Calcium 9.1 mg/dl (8.4-10.2); Carbon Dioxide 33 mmol/L (22-30); Chloride 95 mmol/L (98-107); Glucose 334 mg/dl (70-99); Potassium 5.1 mmol/L (3.5-5.1); Sodium 132 mmol/L (135-145); eGFR 18.79
[2024-05-26 09:38] LABS: INR 1.13
[2024-05-26 09:39] LABS: APTT 26.3 Sec (23.4-35.0)
[2024-05-26] MEDS: NSS 500 IV (10:36)
[2024-05-26] MEDS: NOVOLOG vial 4 UNITS SC (10:55)
[2024-05-26 12:25] LABS: Glucose - Point of Care 233 mg/dl (70-99)
--- NOTE | 2024-05-26 13:08 | W.SUR.POST ---
Surgical Immediate Post Op
Note
Pre Op Diagnosis: End-stage renal disease
Post Op Diagnosis: Same
Procedure Performed: Left upper extremity fistulogram with balloon angioplasty
Primary Surgeon: Guillermo
Anesthesia: Local and sedation
Estimated Blood Loss: Less than 2
Fluids: See anesthesia flowsheet
Drains/Shunts: None
Specimens/Cultures: None
Doppler/Duplex/Angio (Y/N): Y
Complications: None
Operative Findings: Palpable thrill upon completion
[2024-05-26 13:22] LABS: Glucose - Point of Care 156 mg/dl (70-99)
[2024-05-26] MEDS: ROXICODONE 5 MG PO (14:48)
--- NOTE | 2024-05-26 15:14 | OR.RPT ---
Operative Report
Operative Report
PROCEDURE DATE: 05/26/2024
Preoperative diagnosis:
1. End-stage renal disease on hemodialysis.
2. Poorly maturing left upper extremity arteriovenous fistula.
Postoperative diagnosis: Same
Procedure:
1. Left upper extremity fistulogram and central venogram.
2. Balloon angioplasty of occluded venous outflow segment with serial dilation ballooning using 4 mm, 5 mm, 6 mm angioplasty balloon.
3. Supervision and interpretation.
Surgeon: Guillermo
High School Music Teacher: None
Complications: None
Anesthesia: Local, sedation
Fluoroscopy:
4.3 min
3 mGy
0.93 Gy.cm2
Indications for procedure:
End-stage renal disease on hemodialysis. Underwent left upper extremity radiocephalic arteriovenous fistula creation. Fistula with poorly maturing. Ultrasound demonstrated possible occluded mid to proximal forearm segment of the outflow vein.
Risk/benefits/alternatives of fistulogram were also discussed. Patient understood all wished to proceed.
Description of procedure:
Patient was identified, brought to the operating room. Placed on the table in the supine position. After the adequate administration of anesthesia, the patient was prepped and draped in the standard surgical fashion. A standard preoperative
timeout was undertaken and everybody was in agreement with the plan.
Under direct duplex ultrasound guidance the immediate outflow vein of the fistula in the distal forearm/wrist area was punctured and a central facing direction using a micropuncture kit. I had somewhat of a difficulty advancing the micropuncture
wire beyond the mid forearm and this was not surprising due to the known occlusion. Therefore at this point I advanced the micropuncture sheath, and obtained a fistulogram. This demonstrated a patent proximal outflow segment of the fistula but in
the mid forearm as noted on ultrasound the outflow cephalic vein was completely occluded. There were robust collaterals that filled around that area and into the deep venous system. Collaterals then reconstituted the cephalic vein in the more
proximal forearm. Given that I only had a relatively short length and I did not think I be able to have enough length to put a 0.035 inch wire to advance a sheath, I then elected to using the micropuncture sheath advanced a steerable floppy angled
hydrophilic Glidewire. I was able to torque this through the area of occlusion and then finally again wire access into the outflow beyond the occlusion. I tried to pass the micropuncture sheath through the area of occlusion over the Glidewire but
it did not pass too far. But given that I had good wire purchase more centrally now, I exchanged by micropuncture sheath out for a standard 5 Qatari sheath. Now, I was able to use a 4 Qatari glide catheter and advanced over the Glidewire into the
cephalic vein outflow in the proximal forearm/upper arm. Once I did this I then exchanged for a stiffer Earshotq wire. I then performed balloon angioplasty of the occluded segment initially with a 4 mm angioplasty balloon. There was a significant
waist that was able to resolve with full pressure to nominal of the balloon. Completion angiogram demonstrated improvement but still residual stenosis. I therefore then used a 5 mm angioplasty balloon. Completion demonstrated definite
improvement. But there still appeared to be some residual stenosis. Therefore I then exchanged for a 6 mm balloon. Completion angiogram now demonstrated excellent result with the angioplastied segment of vein to be similar in size to the vein and
the inflow and outflow segments. Brisk flow was noted through that segment as well. At this point I satisfied. I had already performed central venogram that did not demonstrate any central venous stenosis. At this point my wires and catheters
were withdrawn. A 4-0 Monocryl pursestring stitch was placed around the sheath entry site and the sheath was withdrawn as manual pressure was applied. Initially there is a small subcutaneous hematoma that was compressed. There was noted to
flatten out and hemostasis was fully achieved. The patient had a good thrill in the fistula upon completion. She tolerated the procedure well.
== END 2024-05-26 15:40 | disposition home or self-care (01) ==
LOC: CATH 08:51
PROVIDERS: ATTENDING PHYSICIAN Surgery Vascular Surgery; OTHER PHYSICIAN Internal Medicine Cardiovascular Disease
DX: T82.858D Stenosis of other vascular prosthetic devices, implants and grafts, subsequent encounter (principal); Y83.2 Surgical operation with anastomosis, bypass or graft as the cause of abnormal reaction of the patient, or of later complication, without mention of misadventure at the time of the procedure; I13.2 Hypertensive heart and chronic kidney disease with heart failure and with stage 5 chronic kidney disease, or end stage renal disease; E11.22 Type 2 diabetes mellitus with diabetic chronic kidney disease; N18.6 End stage renal disease; I50.20 Unspecified systolic (congestive) heart failure; Z99.2 Dependence on renal dialysis; Z79.4 Long term (current) use of insulin
CPT/HCPCS: 36902; 80048; 82962; 85027; 85610; 85730; 86850; 86900; 86901; C1725; C1769; C1894; Q9967

== ENCOUNTER → 2024-08-04 12:45 | Outpatient (REF) | payer MEDICARE, SELFPAY | LOC: RAD 12:45 | PROVIDERS: ATTENDING PHYSICIAN Surgery Vascular Surgery | DX: N18.6 End stage renal disease (principal); I77.0 Arteriovenous fistula, acquired | CPT/HCPCS: 93990 ==

== ENCOUNTER → 2024-09-01 12:17 | Outpatient (REF) | payer MEDICARE, SELFPAY | LOC: RAD 12:17 | PROVIDERS: ATTENDING PHYSICIAN Registered Nurse | DX: N18.6 End stage renal disease (principal); I77.0 Arteriovenous fistula, acquired | CPT/HCPCS: 73206; Q9967 ==

== ENCOUNTER 2024-10-05 10:09 | Emergency (ER) | payer MEDICARE, SELFPAY ==
[2024-10-05 10:15] VITALS: BP 100/56
[2024-10-05 10:16] VITALS: BMI 32.7
[2024-10-05 10:31] LABS: Hematocrit 30.3 % (37.0-47.0); Hemoglobin 10.2 g/dL (12.0-16.0); Mean Corp Hgb Conc. 33.7 g/dL (33.0-37.0); Mean Corpuscular Volume 90.4 fL (81.0-99.0); Nucleated Red Blood Cells % 0.4 %; Platelet Count 155 10^3/uL (130-400); Red Cell Dist. Width 14.6 % (11.5-14.5)
[2024-10-05 10:48] LABS: ALT (SGPT) 373 U/L (0-35); AST (SGOT) 120 U/L (14-36); Albumin 3.9 g/dl (3.5-5.0); Alkaline Phosphatase 385 U/L (38-126); Blood Urea Nitrogen 20 mg/dl (7-17); Calcium 8.8 mg/dl (8.4-10.2); Carbon Dioxide 24 mmol/L (22-30); Chloride 99 mmol/L (98-107); Estimated Creatinine Clearance 28 ml/min; Glucose 318 mg/dl (70-99); Potassium 3.4 mmol/L (3.5-5.1); Sodium 135 mmol/L (135-145); Total Protein 6.5 g/dl (6.3-8.2); eGFR 31.79
[2024-10-05 11:00] VITALS: BP 98/58
--- NOTE | 2024-10-05 11:10 | ED.GENMED ---
History of Present Illness
General
Chief Complaint: Blood Pressure Problem
Time Seen by Provider: 10/05/24 10:59
History of Present Illness
History of Present Illness:
PAST MEDICAL HISTORY AND REVIEW OF OLD RECORDS
- The patient comes in after dialysis due to hypotension. I reviewed records. The patient had left upper extremity fistula 2 g and central venogram with balloon angioplasty and occluded venous outflow management in April with Dr. Li here.
Note:
CHIEF COMPLAINT(S)
- Vision loss and low blood pressure after dialysis.
HISTORY OF PRESENT ILLNESS
The patient is a 38-year-old female who presented with vision loss and low blood pressure after a dialysis session earlier today. The patient was sent here due to low blood pressure readings at the dialysis center. She reported a temporary loss of
vision, which she describes as having been severe enough that she could not see anything, but is now improved slightly. The low blood pressure is possibly attributed to the dialysis process, as variations in blood pressure are common in such
patients. Prior to this event, the patient reports having good vision normally and denies any similar previous episodes. No specific visual disturbances, such as seeing lights, were noted.
PLAN
- Perform a computed tomography (CT) scan of the brain to evaluate the cause of vision loss.
- Conduct liver ultrasound due to observed abnormal liver function tests.
- Monitor blood pressure and reassess the patients condition after interventions.
DIFFERENTIAL DIAGNOSIS
The differential diagnosis includes, in no particular order and is not limited to:
1. Hypotensive episode related to dialysis.
2. Transient ischemic attack (TIA).
3. Retinal detachment or acute retinal pathology.
4. Optic neuritis.
5. Migraine with aura.
6. Hypertensive retinopathy.
7. Stroke.
8. Hepatic encephalopathy due to abnormal liver function.
9. Anemia-related ischemic changes.
10. Electrolyte imbalance secondary to dialysis.
EXAM
- General: Well appearing in no distress, dialysis access noted in the right anterior chest wall
- HEENT: Moist oral mucosa
- Cardiovascular: No murmurs, normal heart rate, regular rhythm, No chest wall tenderness
- Pulmonary: No respiratory distress, breath sounds are clear and equal
- Abdomen: Soft with no peritoneal signs, no tenderness
- Neurologic: Equal strength all extremities, on visual acuity testing, she has light perception only bilaterally however she does have normal eyelid blink with visual threat, there is no facial asymmetry, there are no focal findings
- Psychiatric: Appropriate mental status, normal insight and judgement
- Extremities: Nontender, no edema, moves all extremities equally
- Skin: No rash, no lesions
RADIOLOGY
- CTA obtained; chest x-ray shows some
EKG
- Sinus 68, nonspecific ST abnormality
LABS
- White count 7.3, hemoglobin 10.2, creatinine 2.0 which is improved from baseline, glucose 318, transaminases are newly elevated and alk phos is higher than baseline
SUMMARY OF ENCOUNTER
The patient is a 38-year-old female who was seen in the emergency department for vision loss and low blood pressure following a dialysis session earlier today. A Computed Tomography Angiography (CTA) scan was obtained to evaluate the cause of her
symptoms. Following the discussion with Dr. Tello, it was agreed that her symptoms are likely related to an earlier hypotensive episode. At the time of examination, her vision has returned and she is currently hypertensive.
ASSESSMENT
1. Likely hypotensive episode post-dialysis causing transient vision loss.
2. Current hypertension with resolved vision symptoms.
MANAGEMENT OF THE PATIENTS CARE WAS DISCUSSED WITH
Consultation with Dr. Jhaveri regarding the patients condition and symptoms being potentially related to a prior hypotensive episode.
PLAN
1. Monitor blood pressure closely.
2. Re-evaluate the need for anti-platelet therapy considering current condition.
INDEPENDENT REVIEW OF LABS AND INTERPRETATION OF TESTS
My independent interpretation of the CTA is pending detailed evaluation. The primary review indicates symptomatic relation to prior hypotensive episodes.
MEDICAL DECISION MAKING
-Complexity of Data Reviewed: Chronic conditions affecting care include hypotensive episodes related to dialysis.
-Data:
Category 1
The CTA was independently interpreted to contribute to the assessment of the cause behind transient vision loss and hypotension.
Category 3
Discussion of management was conducted with Dr. Jhaveri, confirming the relation of symptoms to hypotension.
DIAGNOSIS
1. Hypotensive episode related to dialysis - ICD-10 code I95.81
2. Transient vision loss, likely orthostatic - ICD-10 code H53.8
UPDATE
- I discussed case with vascular who recommends obtaining CTA as she is already on dialysis
- I also discussed with Dr. Tello, and we suspect that her symptoms may be related to earlier hypotension. She is now hypertensive and vision has returned.
Past History
Past History
ED Past Medical History: CHF, CVA, HTN, IDDM and Renal failure (Dialysis dependent)
ED Past Surgical History: Tonsilectomy and Other (AV fistula left arm March 2024)
Social History
Tobacco: Non-smoker
Alcohol: None
Drug: None
Living: with family
Family History
Family History: Other (Noncontributory)
Phy Exam
Physical Exam
Physical Exam:
See HPI
Course
Orders/Labs/Results
Orders:
Orders
10/05/24 10:17
Electrocardiogram (*1) Urgent
Reason for Study: Vertigo / Dizzy
EKG- Treatment ONCE
CR Chest - 2 Views Urgent
Comment:
Reason For Exam: cough
10/05/24 10:20
Complete Blood Count/With Diff Urgent
Comprehensive Metabolic Panel Urgent
Troponin I Urgent
10/05/24 11:42
CT Head & Neck Angio W/wo IV Urgent
Comment:
Reason For Exam: acute b/l vision loss; we are aware of Cr (on HD)
Abnormal Lab Results
10/05/24
10:20
RBC 3.35 L 10^6/uL
(4.20-5.40)
Hgb 10.2 L g/dL
(12.0-16.0)
Hct 30.3 L %
(37.0-47.0)
RDW 14.6 H %
(11.5-14.5)
Abs Immat Gran (auto) 0.1 H 10^3/uL
(0-0.05)
Absolute Monos (auto) 0.7 H 10^3/uL
(0.1-0.6)
Immature Gran % 0.8 H %
(0-0.5)
Potassium 3.4 L mmol/L
(3.5-5.1)
BUN 20 H mg/dl
(7-17)
Creatinine 2.0 H mg/dL
(0.6-1.0)
Glucose 318 H mg/dl
(70-99)
AST 120 H U/L
(14-36)
ALT 373 H U/L
(0-35)
Alkaline Phosphatase 385 H U/L
(38-126)
10/05/24 10:20
10/05/24 10:20
Vital Signs
Initial and Last Documented VS:
Initial Vital Signs
Pulse Resp BP Pulse Ox
69 16 100/56 92
10/05/24 10:15 10/05/24 10:15 10/05/24 10:15 10/05/24 10:15
Last Documented Vital Signs
Temp Pulse Resp BP Pulse Ox
36.4 C 76 20 160/79 94
10/05/24 14:23 10/05/24 15:45 10/05/24 14:23 10/05/24 15:00 10/05/24 15:45
*Pulse Oximetry
SaO2: 94
Oxygen Mode of Delivery: Room air
Patient hypoxic: no
*Critical Care Note
Total Time (30-74mins, 75-104mins- exclusive of procedures): Not Applicable
ED Attending Note
-
Portions of this chart may have been created with voice recognition software.� Occasional wrong word or��sound alike� substitutions may have occurred due to the inherent limitations of voice recognition software.
Discharge Plan
Departure
Patient Disposition: Home (Routine Discharge)
Date of Disposition: 10/05/24
Time of Disposition: 15:02
Patient with high blood pressure during this ER visit?: No
Condition: Fair
Discharge Problem:
Hypotension, Visual complaint
Instructions: Hemodialysis, BLOOD PRESSURE
Prescriptions:
No Action
Novolin 70-30 FlexPen U-100 100 unit/mL (70-30) insulin pen
16 unit SC DAILY
carvedilol 12.5 mg Tablet
25 mg PO BID
bumetanide 2 mg Tablet
2 mg PO BID
nifedipine 60 mg Tablet Extended Release 24hr
60 mg PO DAILY
oxycodone-acetaminophen [Percocet] 5-325 mg Tablet
1 tab PO TIDPRN PRN (Reason: pain) Qty: 10 0RF
metolazone 10 mg Tablet
10 mg PO BID
Triphrocaps 1 mg Capsule
1 cap PO DAILY
Referrals:
NONE,* [Family Provider, Internal Medicine]
Activity Restrictions/Additional Instructions:
You were seen in the emergency department for episode of low blood pressure and visual issue
You were found to have reassuring laboratory analysis and CT imaging of your brain.
Please follow-up closely with your primary care physician.
Return to the emergency department for any worsening of your symptoms, or any development of chest pain, difficulty breathing, abdominal pain with persistent vomiting and inability to tolerate food or liquid by mouth (concern for dehydration),
weakness, headache or confusion, fever greater than 100.4, or any additional symptoms that are concerning to you.
Thank you for choosing [facility].
Interventions
Interventions:
*Risk Screen - Suicide Last Done: 10/05/24 10:10
*General Assessment Last Done: 10/05/24 10:10
*Neglect/Abuse Screening Last Done: 10/05/24 10:10
*ED- Fall Risk Assessment Last Done: 10/05/24 10:32
*ED COVID-19 Vaccine History Last Done: 10/05/24 10:32
*Nursing Disposition Last Done: 10/05/24 16:26
ED- Cardiac Assessment Last Done: 10/05/24 10:32
ED- Neurological Assessment Last Done: 10/05/24 10:32
ED- Pulmonary Assessment Last Done: 10/05/24 10:32
Discharge Date and Time
Discharge Date/Time: 10/05/24 16:27
Print Language: MOZAMBICAN
[2024-10-05 11:51] LABS: Troponin I 0.027 ng/ml
[2024-10-05 14:20] VITALS: BP 152/68
[2024-10-05 14:23] VITALS: BP 152/68
[2024-10-05 15:00] VITALS: BP 160/79
== END 2024-10-05 16:27 | disposition home or self-care (01) ==
LOC: EMR 10:09
PROVIDERS: EMERGENCY PHYSICIAN Emergency Medicine
DX: I95.9 Hypotension, unspecified (principal); H53.9 Unspecified visual disturbance; E11.22 Type 2 diabetes mellitus with diabetic chronic kidney disease; I13.2 Hypertensive heart and chronic kidney disease with heart failure and with stage 5 chronic kidney disease, or end stage renal disease; I50.9 Heart failure, unspecified; N18.6 End stage renal disease; Z99.2 Dependence on renal dialysis; Z79.4 Long term (current) use of insulin; Z86.73 Personal history of transient ischemic attack (TIA), and cerebral infarction without residual deficits
CPT/HCPCS: 99284; 70496; 70498; 71046; 80053; 84484; 85025; 93005; Q9967

== ENCOUNTER 2024-11-10 08:08 | Day surgery (SDC) | payer MEDICARE, SELFPAY ==
--- NOTE | 2024-11-02 16:08 | PTCARENOTE ---
Abnormal ECG from 10/05/[address] Cali, cardiac clearance needed.
María at Dr Li's office notified.
[2024-11-10] VITALS (18 sets, daily range): BP systolic 85–131; BP diastolic 47–71; BMI 30.2
[2024-11-10 08:46] LABS: Hematocrit 32.0 % (37.0-47.0); Hemoglobin 10.6 g/dL (12.0-16.0); Mean Corp Hgb Conc. 33.1 g/dL (33.0-37.0); Mean Corpuscular Volume 90.1 fL (81.0-99.0); Platelet Count 169 10^3/uL (130-400); Red Cell Dist. Width 14.9 % (11.5-14.5)
[2024-11-10 08:48] LABS: Glucose - Point of Care 330 mg/dl (70-99)
[2024-11-10] MEDS: PERIDEX 0.12% ORAL RINSE 15 ML PO (08:49)
[2024-11-10] MEDS: BACTROBAN NASAL 1 GRAM NASAL (08:49)
[2024-11-10 09:04] LABS: APTT 30.9 Sec (23.4-35.0); INR 1.32; PT 16.9 Sec (11.4-14.6)
[2024-11-10] MEDS: NOVOLOG vial 8 UNITS SC (09:15)
[2024-11-10] MEDS: NSS 500 IV (09:16)
[2024-11-10 09:40] LABS: Blood Urea Nitrogen 44 mg/dl (7-17); Calcium 8.8 mg/dl (8.4-10.2); Carbon Dioxide 29 mmol/L (22-30); Chloride 95 mmol/L (98-107); Estimated Creatinine Clearance 21 ml/min; Glucose 348 mg/dl (70-99); Potassium 5.2 mmol/L (3.5-5.1); Sodium 132 mmol/L (135-145); eGFR 23.06
[2024-11-10 10:31] LABS: Glucose - Point of Care 295 mg/dl (70-99)
--- NOTE | 2024-11-10 10:41 | W.SUR.POST ---
Surgical Immediate Post Op
Note
Pre Op Diagnosis: ESRD
Post Op Diagnosis: ESRD
Procedure Performed: LUE brachiocephalic AV fistula creation and ligation of existing radiocephalic AVF
Primary Surgeon: Guillermo
Secondary Surgeons: Ino HERNANDEZ
Anesthesia: LMA
Estimated Blood Loss: 5cc
Fluids: see anesthesia flow sheet
Drains/Shunts: none
Specimens/Cultures: None
Doppler/Duplex/Angio (Y/N): Y
Complications: none
Operative Findings: +thrill
--- NOTE | 2024-11-10 10:56 | OR.RPT ---
Operative Report
Operative Report
PROCEDURE DATE: 11/10/2024
Preoperative diagnosis: End-stage renal disease on hemodialysis
Postoperative diagnosis: Same
Procedure:
1. Left upper extremity brachiocephalic arteriovenous fistula creation
2. Ligation of outflow veins left upper extremity radiocephalic fistula.
Surgeon: Guillermo
Certified Fire Investigator: EDIS Mckinnon, required for all aspects of procedure including assistance with traction/countertraction, following a suture line, assistance with closure.
Complications: None
Anesthesia: General
Indications for procedure:
End-stage renal disease on hemodialysis. Had undergone prior left radiocephalic arteriovenous fistula. Had a mid segment of the forearm vein occlusion which I was able to angioplasty open. However it recurrently occluded. I felt the
radiocephalic fistula is no longer tenable. Risk/benefits/alternatives of new fistula creation were discussed. She understood all wish to proceed.
Description of procedure:
Patient was identified brought to the operating room placed on the table in supine position. After the adequate administration of anesthesia and perioperative antibiotics she was prepped and draped in the standard surgical fashion. A standard
preoperative timeout was undertaken and everybody was in agreement the plan. A transverse incision was made in the proximal volar aspect of the forearm just distal to the antecubital fossa. This was carried through skin subcutaneous tissue. The
antecubital extension of the cephalic vein was identified and carefully dissected away from surrounding structures and great care to avoid any injury to structures. Any branches were ligated between silk ties and divided to facilitate mobilization.
Note the cephalic vein here in the antecubital area looked very good. As such I was able to mobilize a suitable length of cephalic vein. Once I had done this I then deepened my dissection in the medial aspect of the incision site through the
fascial layer. The brachial artery was carefully identified and carefully dissected away from surrounding structures take great care to avoid injury to structures. I passed a vessel loop around it proximally and distally. Next I gave the patient
3000 units of intravenous heparin. I then ligated the cephalic vein distally in my field with a silk tie and a clip. I then transected it. I distended under heparinized saline. It distended very well. I marked the anterior surface under
distention to avoid any kinking or twisting. It was a very nice sizable vein. Next I clamped the artery proximally, and tightened double looped vessel loop distally. I then made an arteriotomy with 11 blade extended using a Lowery scissor. I
spatulated the cephalic vein and sewed an end to side anastomosis to the artery using a running 6-0 Prolene suture. Next I released my bulldog clamp on the vein and then released my proximal arterial clamp. There was an excellent thrill in the
fistula. The distal vessel loop was then loosened on the artery. There was a palpable pulse maintained at the wrist in the radial artery. At this point I was very satisfied.
Next, I made a longitudinal incision in the distal wrist just proximal and lateral to the prior incision site for the radiocephalic fistula creation. This was carried through skin subtenons tissue with the electrocautery. I then identified the
main outflow vein (cephalic vein in the forearm) as well as a large branch that retrograde filled into the hand that was causing her symptoms of swelling and pain. Both of these branches were carefully circumferentially dissected and ligated with
silk ties.
At this point I was very satisfied. Both incision sites were irrigated. I achieved and confirmed full hemostasis at both incision sites. We then closed both incision sites in layers using 3-0 Vicryl deep dermal layer followed by 4-0 Monocryl
subcuticular stitch. Dermabond was applied. The patient tolerated the procedure well.
[2024-11-10] MEDS: DILAUDID 0.25 MG IV (11:49)
[2024-11-10 12:09] LABS: Glucose - Point of Care 228 mg/dl (70-99)
--- NOTE | 2024-11-10 12:54 | W.[place]-PDMP ---
[place]-PD[place]
-
Checked the [place]- Prescription Drug Monitoring Program website, no red flags identified; safe to proceed with prescription.
[2024-11-10 13:26] LABS: Glucose - Point of Care 225 mg/dl (70-99)
[2024-11-10] MEDS: NOVOLOG vial 2 UNITS SC (13:32)
--- NOTE | 2024-11-10 14:03 | PTCARENOTE ---
dr rogers at bedside assessing patient. Dr rogers aware of patient reporting 9/10 pain at left upper arm AV fistula site and will be receiving norco upon discharge. Patient sister at bedside and aware. Dr rogers states patient okay for discharge.
[2024-11-10] MEDS: NORCO 5/325 1 TABLET PO (14:07)
== END 2024-11-10 14:10 | disposition home or self-care (01) ==
LOC: CATH 08:08
PROVIDERS: ATTENDING PHYSICIAN Surgery Vascular Surgery; FAMILY PHYSICIAN Family Medicine; OTHER PHYSICIAN Internal Medicine Cardiovascular Disease
DX: I13.2 Hypertensive heart and chronic kidney disease with heart failure and with stage 5 chronic kidney disease, or end stage renal disease (principal); E11.22 Type 2 diabetes mellitus with diabetic chronic kidney disease; N18.6 End stage renal disease; I50.22 Chronic systolic (congestive) heart failure; Z79.4 Long term (current) use of insulin; Z99.2 Dependence on renal dialysis
CPT/HCPCS: 36821; 37607; 80048; 82962; 85027; 85610; 85730; 86850; 86900; 86901

== ENCOUNTER → 2025-01-10 08:04 | Outpatient (REF) | payer MEDICARE, SELFPAY | LOC: RAD 08:04 | PROVIDERS: ATTENDING PHYSICIAN Registered Nurse | DX: N18.6 End stage renal disease (principal); I77.0 Arteriovenous fistula, acquired | CPT/HCPCS: 93990 ==